=== PATIENT | female | born 1995 | race Caucasian/White ===

== ENCOUNTER 2021-10-14 15:05 | Emergency (ER) | payer MEDICAID, SELFPAY ==
--- NOTE | 2021-10-14 15:26 | ED_ITS ---
HPI - Psych General Chief Complaint: Psychiatric Symptoms Stated Complaint: SI Time Seen by Provider: 10/14/21 16:05 Source: patient, EMS and old records reviewed Mode of arrival: EMS Limitations: no limitations History of Present Illness HPI Narrative: 26-year-old female with a history of mood disorder, dissociation disorder, major depression disorder who lives at a nursing home who presents to the ER via EMS with unsafe behavior. She states today while at her nursing home she asked to use the phone and the staff said no. She felt as though they were mocking her, being disrespectful, and it triggered my unsafe behavior. She reports going to her room and yelling about how she wanted to hurt herself. She banged her head on the wall. She went to the kitchen and got a sharp knife to try to slit her wrists. EMS reports she pulled the knife on staff but she denies this. She has a history of similar presentations in the past. She does not feel safe going back to her nursing home and she feels like she needs to go inpatient. She denies drugs or ETOH use. She reports missing a dose of her meds last night but otherwise has been compliant. MD complaint: suicidal ideation and feels depressed Onset (ago): unknown Duration: intermittent History of same: Yes Relieving factors: none Exacerbating factors: none Context: not taking psychiatric medications Associated psychiatric symptoms: depression, suicidal ideation and racing thoughts Associated symptoms: denies other symptoms If self harm: admits thoughts of self harm, has plan and self-inflicted trauma Related Data Home Medications Medication Instructions Recorded Confirmed clonidine HCl 0.2 mg tablet 1 tab PO DAILY PRN 10/14/21 fluoxetine 10 mg capsule (Prozac) 1 cap PO QAM 10/14/21 lamotrigine 200 mg tablet 1 tab PO BID 10/14/21 (Lamictal) olanzapine 20 mg tablet 0.5 tab PO BID 10/14/21 trazodone 150 mg tablet 1 tab PO BEDTIME PRN 10/14/21 Allergies Allergy/AdvReac Type Severity Reaction Status Date / Time diphenhydramine Allergy Unknown UNKNOWN Unverified 05/22/20 16:32 [From BENADRYL] medroxyprogesterone Allergy Unknown UNKNOWN Unverified 05/22/20 16:32 [From DEPO-PROVERA] Review of Systems Review of Systems: Constitutional: No Fever, No Chills ENT/Mouth: No sore throat, No Rhinorrhea, No Swallowing Difficulty Cardiovascular: No Chest Pain, No SOB Respiratory: No Cough, No Sputum, No Wheezing, No dyspnea Gastrointestinal: No Nausea, No Vomiting, No Diarrhea, No abdominal Pain Genitourinary: No Dysuria, No Urinary Frequency, No Hematuria Musculoskeletal: No joint pain, No Myalgias Skin: No Skin Lesions, No rash Neuro: No Weakness, No Numbness, No Dizziness, No Headache Psych: +Anxiety/Panic, + Depression, +SI, No HI, No AH, No VH Heme/Lymph: No Bruising, No Lymphadenopathy PMFSH Social History Social History Advance Directives: No Advance Directives Information Provided: No Physical Exam Vital Signs: Vital Signs: Last Vital Signs Temp 99.0 F 10/14/21 15:53 Pulse 96 10/14/21 15:53 Resp 16 10/14/21 15:53 BP 107/61 10/14/21 15:53 Pulse Ox 96 10/14/21 15:53 BMI result Body Mass Index 27.9 Appearance: Alert. Oriented X3. No acute distress. Eyes: Pupils equal, round and reactive to light. ENT: Pharynx normal. Neck: Normal inspection. Neck supple. CVS: Normal heart rate and rhythm. Pulses normal. Respiratory: No respiratory distress. Breath sounds normal. Abdomen: Soft and nontender. +BS x4 Skin: Skin warm and dry. Normal skin color. Normal skin turgor. No rashes. Extremities: No lower extremity edema. Neuro/psych: Oriented X 3. No motor deficit. No sensory deficit. CN II-XII intact. Makes eye contact, good insight and judgment, anxious Course Course Course Narrative: 26-year-old female with a history of mood disorder, depression who resides in a nursing home for the last 5 years presents to the ER with self-harm behavior and suicidal thoughts after being told she cannot use a telephone there. She has a history of a similar presentation in the past. She feels like she needs to go inpatient here or to a center in [place] which she has been to before with improvement in her thoughts and behaviors. Will get basic medical workup and have the crisis team evaluate her. Reevaluation(s) Reevaluation #1: Upon changing over patient became extremely tearful and anxious. Oral Zyprexa (home med) ordered and patient agrees to take to help calm her. Reevaluation #2: Physician observation started at 5pm. Patient placed in physician observation because patient is awaiting [facility] evaluation for the possible need of inpatient psych admission. At the time observation was started patient's vital signs were stable. Patient is alert and oriented. Neuro exam is non-focal. CV: RRR and lungs are clear. Will continue to monitor. Discharge Plan Discharge Clinical Impression: Suicidal ideation Patient Disposition: Still a Patient Prescriptions: No Action lamotrigine [Lamictal] 200 mg tablet 1 tab PO BID 0RF clonidine HCl 0.2 mg tablet 1 tab PO DAILY PRN (Reason: Anxiety) 0RF trazodone 150 mg tablet 1 tab PO BEDTIME PRN (Reason: Anxiety) 0RF fluoxetine [Prozac] 10 mg capsule 1 cap PO QAM 0RF olanzapine 20 mg tablet 0.5 tab PO BID 0RF
[2021-10-14 15:36] VITALS: BP 138/86; PULSE 116
[2021-10-14 15:39] VITALS: PULSE 114; O2SAT 97
[2021-10-14 15:53] VITALS: BP 107/61; PULSE 96; RESP 16; TEMP 37.2; O2SAT 96; BMI 27.9
[2021-10-14] MEDS: OLANZapine 5 MG TABLET PO (16:32)
[2021-10-14 17:15] LABS: MANUAL DIFF FLAG NO
[2021-10-14 17:16] LABS: Basophils Percent Auto 0.4 % (0-2); Hematocrit 40.7 % (37.0-47.0); Hemoglobin 13.7 g/dl (12.0-16.0); Imm Gran Abs Auto 0.02 X10*3/uL (0.00-0.03); Imm Gran Pct Auto 0.3 % (0.0-0.4); Lymphocytes Absolute Auto 1.9 X10*3/uL (1.2-4.9); Mean Corpuscular HGB Conc 33.7 g/dl (31.0-35.0); Mean Corpuscular Hemoglobin 29.8 pg (27.0-33.0); Mean Corpuscular Volume 88.5 fL (80.0-98.0); Mean Platelet Volume 8.8 fL (9.4-12.3); Monocytes Absolute Auto 0.4 X10*3/uL (0.1-1.2); Monocytes Percent Auto 5.4 % (2-11); Neutrophils Absolute Auto 5.5 x10*3/uL (2.0-8.3); Neutrophils Percent Auto 69.9 % (45-73); Platelet Count 264 X10*3/uL (160-400); Red Cell Distribution Width 12.2 % (11.0-16.0); White Blood Count 7.9 X10*3/uL (4.8-10.8)
--- NOTE | 2021-10-14 17:24 | PHA.MEDREC ---
Pharmacy Consult ? Medication Reconciliation Pharmacy has completed the medication reconciliation.
[2021-10-14 17:31] LABS: COVID-19 Test Negative (Negative); IDNOW Serial# 9DD0AD1C
[2021-10-14 17:33] LABS: Ethanol < 10 mg/dL
[2021-10-14 17:37] LABS: Alanine Aminotransferase 18 U/L (0-31); Albumin Level 4.7 g/dL (3.5-5.0); Alkaline Phosphatase 68 U/L (39-117); Anion Gap 12 (12-20); Aspartate Amino Transferase 17 U/L (5-31); Bilirubin Direct < 0.2 mg/dL (0.0-0.5); Bilirubin Total 0.4 mg/dL (0.0-1.0); Blood Urea Nitrogen 9 mg/dL (9-16); Calcium 10.2 mg/dL (8.4-10.2); Carbon Dioxide 25 mmol/L (22-29); Chloride 108 mmol/L (96-108); Estimated Glomerular Filt Rate > 60; Glucose Random 112 mg/dL (60-115); Magnesium 2.2 mg/dL (1.6-2.6); Potassium 4.2 mmol/L (3.3-5.1); Sodium 141 mmol/L (135-145); Total Protein 8.1 g/dL (6.5-8.0)
== END 2021-10-14 22:01 | disposition home or self-care (01) ==
PROVIDERS: Physician Assistant; Emergency Provider Emergency Medicine
DX: R45.851 Suicidal ideations (principal); F32.9 Major depressive disorder, single episode, unspecified; F41.9 Anxiety disorder, unspecified; Z20.822 Contact with and (suspected) exposure to COVID-19; Z79.899 Other long term (current) drug therapy
CPT/HCPCS: 80048; 80076; 82077; 83735; 85025; 87635; 99283; 99284

== ENCOUNTER 2021-10-16 11:01 | Emergency (ER) | payer MEDICAID, SELFPAY ==
[2021-10-16 11:14] VITALS: BP 132/94; PULSE 72; O2SAT 99
--- NOTE | 2021-10-16 11:28 | ED_ITS ---
HPI - Psych General Chief Complaint: Psychiatric Symptoms <Lizzeth Hernandez MD - Last Filed: 10/16/21 11:39> Stated Complaint: crisis <Lizzeth Hernandez MD - Last Filed: 10/16/21 11:39> Time Seen by Provider: 10/16/21 11:14 <Lizzeth Hernandez MD - Last Filed: 10/16/21 11:39> Source: patient and EMS <Lizzeth Hernandez MD - Last Filed: 10/16/21 11:39> Mode of arrival: EMS <Lizzeth Hernandez MD - Last Filed: 10/16/21 11:39> Limitations: no limitations <Lizzeth Hernandez MD - Last Filed: 10/16/21 11:39> History of Present Illness HPI Narrative: Patient comes to the emergency room complaining of vague suicidal ideation. Patient states that she does not want to live anymore. Since the patient had an argument with her [facility]mate at the [facility]. Patient grabbed a butter knife and scratched her left wrist and left thumb. Patient states that she wants to contact her [facility] worker and request to have her moved to another [facility]. <Lizzeth Hernandez MD - Last Filed: 10/16/21 11:39> Related Data Home Medications: Home Medications Medication Instructions Recorded Confirmed clonidine HCl 0.2 mg tablet 1 tab PO DAILY PRN 10/14/21 10/16/21 fluoxetine 10 mg capsule (Prozac) 1 cap PO QAM 10/14/21 10/16/21 lamotrigine 200 mg tablet 1 tab PO BID 10/14/21 10/16/21 (Lamictal) olanzapine 20 mg tablet 0.5 tab PO BID 10/14/21 10/16/21 trazodone 150 mg tablet 1 tab PO BEDTIME PRN 10/14/21 10/16/21 <Lizzeth Hernandez MD - Last Filed: 10/16/21 11:39> Allergies/Adverse Reactions: Allergies Allergy/AdvReac Type Severity Reaction Status Date / Time diphenhydramine Allergy Unknown UNKNOWN Unverified 05/22/20 16:32 [From BENADRYL] medroxyprogesterone Allergy Unknown UNKNOWN Unverified 05/22/20 16:32 [From DEPO-PROVERA] <Lizzeth Hernandez MD - Last Filed: 10/16/21 11:39> Review of Systems Review of Systems: Constitutional : No Weight loss, No Fever, No Chills, No Night Sweats, No Fatigue, No Malaise ENT/Mouth : No Hearing loss, No Ear Pain, No Nasal Congestion, No Sinus Pain, No Hoarseness, No sore throat, No Rhinorrhea, No Swallowing Difficulty Eyes: No Eye Pain, No Swelling, No Redness, No Foreign Body, No Discharge, No Vision Changes Cardiovascular : No Chest Pain, No SOB, No Dyspnea on Exertion, No Orthopnea, No Edema, No Palpitations Respiratory : No Cough, No Sputum, No Wheezing, No Smoke Exposure, No Dyspnea Gastrointestinal : No Nausea, No Vomiting, No Diarrhea, No Constipation, No abdominal Pain, No Hematochezia, No Melena Genitourinary : no irregular bleeding, No Dysuria, No Urinary Frequency, No Hematuria, No Urinary Incontinence, No Urgency, No Flank Pain, No Urinary Flow Changes, No Hesitancy Musculoskeletal : No joint pain, No Myalgias, No Joint Swelling Skin : Minor skin abrasions to the left thumb and left wrist Neuro : No Weakness, No Numbness, No Paresthesias, No Loss of Consciousness, No Dizziness, No Headache Psych : Complaining of feeling anxious, depressed, vague suicidal ideation, no homicidal ideation, requesting to be moved to a new [facility] Heme/Lymph: No Bruising, No Bleeding,No Lymphadenopathy Endocrine : No Polyuria, No Polydipsia, No Temperature Intolerance <Lizzeth Hernandez MD - Last Filed: 10/16/21 11:39> [facility] Past Medical History Medical History: Medical History Major depression Mood disorder <Lizzeth Hernandez MD - Last Filed: 10/16/21 11:39> Social History Social History: Social History Advance Directives: No Advance Directives Information Provided: No <Lizzeth Hernandez MD - Last Filed: 10/16/21 11:39> Physical Exam Vital Signs: Vital Signs: Last Vital Signs Temp 97.2 F 10/16/21 12:00 Pulse 89 10/16/21 12:00 Resp 20 10/16/21 12:00 BP 104/67 10/16/21 12:00 Pulse Ox 97 10/16/21 12:00 BMI result Body Mass Index 27.9 <Lizzeth Hernandez MD - Last Filed: 10/16/21 11:39> Vital Signs: Last Vital Signs Temp 97.2 F 10/16/21 12:00 Pulse 89 10/16/21 12:00 Resp 20 10/16/21 12:00 BP 104/67 10/16/21 12:00 Pulse Ox 97 10/16/21 12:00 BMI result Body Mass Index 27.9 <ANNALEE Sprague - Last Filed: 10/16/21 17:25> Const: Other: Appearance: Alert. Oriented X3. Eyes: Pupils equal, round and reactive to light. ENT: Pharynx normal. Neck: Normal inspection. Neck supple. No lymph nodes noted. No crepitus CVS: Normal heart rate and rhythm. Pulses normal. Normal S1 and S2 Respiratory: No respiratory distress. Breath sounds normal. No Wheezing. No rales Abdomen: Soft and nontender. No rigidity. No distention. Skin: Skin warm and dry. Minor 0.5 cm superficial abrasion to the left wrist, 2 superficial scratches to the left thumb, no signs of cellulitis Extremities: No lower extremity edema. Neuro: Oriented X 3. No motor deficit. No sensory deficit. Moving all extermities. No slurred speech. Cranial nerves 2-12 grossly intact Psych: Angry, not very willing to talk, avoids eye contact <Lizzeth Hernandez MD - Last Filed: 10/16/21 11:39> Course Course Course Narrative: Behavioral health network consult pending. Physician observation started at 11:38 <Lizzeth Hernandez MD - Last Filed: 10/16/21 11:39> Reevaluation(s) Reevaluation #1: Behavioral health cleared patient to return to her [facility]. States patient makes suicidal statements when she is upset, but has no history of acting on them, [facility] is comfortable taking her back. Plan is to go back to [facility] and watch movies and relax. <ANNALEE Sprague - Last Filed: 10/16/21 17:25> MDM - Psych Lab Data Labs: Lab Results 10/16/21 Range/Units 11:43 COVID-19 ([facility]) Negative (Negative) COVID-19 Clin Com See Note <Lizzeth Hernandez MD - Last Filed: 10/16/21 11:39> Lab Results 10/16/21 Range/Units 11:43 COVID-19 ([facility]) Negative (Negative) COVID-19 Clin Com See Note <ANNALEE Sprague - Last Filed: 10/16/21 17:25> Discharge Plan Discharge Clinical Impression: Suicidal ideation <Lizzeth Hernandez MD - Last Filed: 10/16/21 11:39> Patient Disposition: Home, Self-Care <Lizzeth Hernandez MD - Last Filed: 10/16/21 11:39> Additional Instructions: Please return to emergency room if you feel like hurting yourself or anyone else, or for any other new or concerning symptoms. <Lizzeth Hernandez MD - Last Filed: 10/16/21 11:39> Prescriptions: No Action lamotrigine [Lamictal] 200 mg tablet 1 tab PO BID 0RF clonidine HCl 0.2 mg tablet 1 tab PO DAILY PRN (Reason: Agitation) 0RF trazodone 150 mg tablet 1 tab PO BEDTIME PRN (Reason: Insomnia) 0RF fluoxetine [Prozac] 10 mg capsule 1 cap PO QAM 0RF olanzapine 20 mg tablet 0.5 tab PO BID 0RF <Lizzeth Hernandez MD - Last Filed: 10/16/21 11:39>
[2021-10-16 11:40] VITALS: BP 100/50; PULSE 76; RESP 16; TEMP 36.1; BMI 27.9
[2021-10-16 12:00] VITALS: BP 104/67; PULSE 89; RESP 20; TEMP 36.2; O2SAT 97
--- NOTE | 2021-10-16 12:19 | PC.NURSE ---
PT REQUESTING TO USE CORDLESS PHONE TO CALL HER [facility]. PHONE PROVIDED TO PATIENT.
[2021-10-16 12:28] LABS: COVID-19 Test Negative (Negative)
--- NOTE | 2021-10-16 14:02 | MHC.CARE ---
Smart Sheet Submitted
--- NOTE | 2021-10-16 15:32 | PC.NURSE ---
Medication list faxed over from [facility] reconciliation completed md engel. Pt at this time awaiting eval. no c/o at this time.
--- NOTE | 2021-10-16 18:54 | PC.NURSE ---
Patient is alert and cooperative verbalized understanding that when she feels like hurting herself she needs to speak to someone. Awaiting shelter to arrive to take patient back to shelter.
== END 2021-10-16 19:04 | disposition home or self-care (01) ==
PROVIDERS: Emergency Provider Emergency Medicine
DX: S60.812A Abrasion of left wrist, initial encounter (principal); X78.1XXA Intentional self-harm by knife, initial encounter; R45.851 Suicidal ideations; F32.9 Major depressive disorder, single episode, unspecified; Z72.89 Other problems related to lifestyle; Z59.2 Discord with neighbors, lodgers and landlord; Y93.89 Activity, other specified; Y92.049 Unspecified place in boarding-house as the place of occurrence of the external cause; Y99.9 Unspecified external cause status; Z20.822 Contact with and (suspected) exposure to COVID-19
CPT/HCPCS: 87635; 99284

== ENCOUNTER 2022-03-30 16:19 | Emergency (ER) | payer MEDICAID, SELFPAY ==
[2022-03-30 16:34] VITALS: BP 130/85; BP 138/96; PULSE 89; PULSE 95; TEMP 37.2; O2SAT 95; O2SAT 96; BMI 26.6
--- NOTE | 2022-03-30 16:34 | ED.PSYCH ---
HPI - Psych General Chief Complaint: Psychiatric Symptoms Stated Complaint: behavior problems Time Seen by Provider: 03/30/22 16:34 Source: patient Mode of arrival: ambulatory Limitations: no limitations History of Present Illness HPI Narrative: Patient history of PTSD, mood disorder was at the [facility] had argument with the staff began hitting head to the wall requesting to leave the [facility] with vague suicidal ideas no plan no hallucination or delusion Related Data Home Medications Medication Instructions Recorded Confirmed clonidine HCl 0.2 mg tablet 1 tab PO DAILY PRN Agitation 10/14/21 03/30/22 fluoxetine 10 mg capsule (Prozac) 1 cap PO QAM 10/14/21 03/30/22 lamotrigine 200 mg tablet 1 tab PO BID 10/14/21 03/30/22 (Lamictal) olanzapine 20 mg tablet 0.5 tab PO BID 10/14/21 03/30/22 trazodone 150 mg tablet 1 tab PO BEDTIME PRN Insomnia 10/14/21 03/30/22 Allergies Allergy/AdvReac Type Severity Reaction Status Date / Time diphenhydramine Allergy Unknown UNKNOWN Unverified 05/22/20 16:32 [From BENADRYL] medroxyprogesterone Allergy Unknown UNKNOWN Unverified 05/22/20 16:32 [From DEPO-PROVERA] Review of Systems Review of Systems: Yes all other systems are reviewed and are negative [facility] Past Medical History Medical History Major depression Mood disorder Social History Social History Patient Tobacco Use Status: Former Tobacco user Use of substances other than those prescribed or required for medical reasons: No Advance Directives: No Advance Directives Information Provided: No Patient : No Physical Exam Vital Signs: Vital Signs: Last Vital Signs Temp 98.1 F 03/31/22 00:37 Pulse 78 03/31/22 00:37 Resp 18 03/31/22 00:37 BP 119/80 03/31/22 00:37 Pulse Ox 95 03/31/22 00:37 O2 Del Method 03/31/22 00:37 BMI result Body Mass Index 26.6 Appearance: Alert. Oriented X3. No acute distress. Eyes: PERRLA, No Nystagmus ENT: Pharynx normal. Oral Mucosa moist Neck: Normal inspection. Neck supple. CVS: Normal heart rate and rhythm. Pulses normal. Respiratory: No respiratory distress. Equal air entry bilateral, no wheezing/rales/rhonchi Abdomen: Soft and nontender. Bowel sounds are present, no mass palpable, no CVA tenderness Skin: Skin warm and dry. Normal skin color. Normal skin turgor. Extremities: No lower extremity edema. No calf tenderness psych: Patient with mood swings crying intermittently saying that she does not know what to do denies any suicidal plan no hallucination delusion Neuro: Oriented X 3. No motor deficit. No sensory deficit.No cerebellar signs , cranial nerves II-XII intact MDM - Psych Lab Data Labs: Lab Results 03/30/22 Range/Units 19:18 COVID-19 ([facility]) Negative (Negative) COVID-19 Clin Com See Note Discharge Plan Discharge Clinical Impression: Acute anxiety, Suicidal ideation, Depression Patient Disposition: Still a Patient Prescriptions: No Action lamotrigine [Lamictal] 200 mg tablet 1 tab PO BID clonidine HCl 0.2 mg tablet 1 tab PO DAILY PRN (Reason: Agitation) trazodone 150 mg tablet 1 tab PO BEDTIME PRN (Reason: Insomnia) fluoxetine [Prozac] 10 mg capsule 1 cap PO QAM olanzapine 20 mg tablet 0.5 tab PO BID
[2022-03-30] MEDS: LORazepam 1 MG TABLET 2 MG PO (16:59)
[2022-03-30 19:39] LABS: COVID-19 Test Negative (Negative)
--- NOTE | 2022-03-30 20:31 | MHC.CARE ---
Esdras sent to [facility]
[2022-03-30] MEDS: OLANZapine 10 MG TABLET PO (21:50)
[2022-03-30] MEDS: lamoTRIgine 100 MG TABLET 200 MG PO (21:50)
[2022-03-31 00:37] VITALS: BP 119/80; PULSE 78; RESP 18; TEMP 36.7; O2SAT 95
--- NOTE | 2022-03-31 01:23 | PC.NURSE ---
I assumed nursing care of Dhiraj at 1900. Dhiraj is on a 1:1 with [facility] staff observing her, and she also has staff from her gor home at the bedside continuously. Dhiraj is here to be evaluated by crisis team due to behavioral concerns at her half-way. Dhiraj is awake, alert and oriented x 3. She is at times tearful and sobbnig, other times she is cheerful and laughing,other times she is calm and cooperative. She makes eye contact with Rn and once i begin a conversation with her she makes it very difficult for me to leave the conversation despite me repeatedly stating I need to step out of the room. She denies suicidal ideations, however she endorses the desire to cut herself. She shows me multiple very small, very superficial abrasions to her left upper arm that she states she induced with her fingernails prior to my meeting her. There is no active bleeding. In addition, she denies the desire commit homicide but admits to the desire to harm other residents, as well as staff, at her half-way. I have given Dhiraj some hand held stress relief devices from the [facility] in order to help distract her from the desire to harm herself, at her request. She has been taking PO fluids without difficulty, as well as ice cream. [facility] staff are here at this time to evaluate the pt. We will continue to monitor Dhiraj.
== END 2022-03-31 02:14 | disposition home or self-care (01) ==
PROVIDERS: Internal Medicine; Emergency Provider Emergency Medicine Emergency Medical Services
DX: F41.9 Anxiety disorder, unspecified (principal); F32.A Depression, unspecified; R45.851 Suicidal ideations; Z20.822 Contact with and (suspected) exposure to COVID-19; F43.10 Post-traumatic stress disorder, unspecified; Z87.891 Personal history of nicotine dependence
CPT/HCPCS: 87635; 99284; 99285

== ENCOUNTER 2025-01-30 16:48 | Emergency (ER) | payer MEDICARE, MEDICAID, SELFPAY ==
[2025-01-30 17:03] VITALS: BP 128/78; BP 142/90; PULSE 75; RESP 20; TEMP 36.6; O2SAT 100; O2SAT 98; BMI 25.5
[2025-01-30 18:15] LABS: MANUAL DIFF FLAG NO
[2025-01-30 18:18] LABS: Basophils Percent Auto 0.3 % (0-2); Hematocrit 40.4 % (37.0-47.0); Hemoglobin 13.8 g/dl (12.0-16.0); Imm Gran Abs Auto 0.04 X10*3/uL (0.00-0.03); Imm Gran Pct Auto 0.5 % (0.0-0.4); Lymphocytes Absolute Auto 2.9 X10*3/uL (1.2-4.9); Lymphocytes Percent Auto 37.3 % (20-40); Mean Corpuscular HGB Conc 34.2 g/dl (31.0-35.0); Mean Corpuscular Hemoglobin 30.1 pg (27.0-33.0); Mean Corpuscular Volume 88.2 fL (80.0-98.0); Mean Platelet Volume 8.4 fL (9.4-12.3); Monocytes Absolute Auto 0.4 X10*3/uL (0.1-1.2); Monocytes Percent Auto 5.7 % (2-11); Neutrophils Absolute Auto 4.3 x10*3/uL (2.0-8.3); Neutrophils Percent Auto 56.2 % (45-73); Platelet Count 250 X10*3/uL (160-400); Red Blood Count 4.58 X10*6/uL (4.20-5.50); Red Cell Distribution Width 11.9 % (11.0-16.0); White Blood Count 7.7 X10*3/uL (4.8-10.8)
[2025-01-30 18:36] LABS: Acetaminophen LAB < 3 mcg/mL (<30); Alanine Aminotransferase 10 U/L (0-31); Albumin Level 4.6 g/dL (3.5-5.0); Alkaline Phosphatase 62 U/L (39-117); Anion Gap 13 (12-20); Aspartate Amino Transferase 12 U/L (5-31); Bilirubin Total 0.2 mg/dL (0.0-1.0); Blood Urea Nitrogen 12 mg/dL (9-16); Calcium 9.8 mg/dL (8.4-10.2); Carbon Dioxide 26 mmol/L (22-29); Chloride 101 mmol/L (96-108); Creatinine Clr Calc Pharmacy 117.6; Estimated Glomerular Filt Rate > 60; Ethanol < 10 mg/dL; Glucose Random 112 mg/dL (60-115); Potassium 3.6 mmol/L (3.3-5.1); Salicylate < 5.0 mg/dL (15-30); Sodium 136 mmol/L (135-145)
--- NOTE | 2025-01-30 18:40 | ED_ITS ---
HPI - Psych General Chief Complaint: Psychiatric Symptoms Stated Complaint: crisis eval, sect 12, SI Time Seen by Provider: 01/30/25 17:57 History of Present Illness ED Provider: Pb Rodriguez MD HPI Narrative: Triage note: Via EMS from half-way. Vague suicidal ideation reported. Small open wound left breast section 12 by Will RIGGS . Upon my evaluation the patient is cooperative. She tells me ?I need a break from my roommates ?. She denies suicidal ideation or homicidal ideation. She says that staff members and her roommates were frustrating bothering her. Related Data Home Medications ?Medication ?Instructions ?Recorded ?Confirmed clonidine HCl 0.2 mg tablet 1 tab PO BEDTIME 10/14/21 01/30/25 fluoxetine 10 mg capsule (Prozac) 2 cap PO DAILY 10/14/21 01/30/25 lamotrigine 200 mg tablet 1 tab PO BID 10/14/21 01/30/25 (Lamictal) acetylcysteine 600 mg capsule (NAC) 600 mg PO BID 01/30/25 01/30/25 cholecalciferol (vitamin D3) 50 50 mcg PO DAILY 01/30/25 01/30/25 mcg (2,000 unit) tablet (Vitamin D3) clonidine HCl 0.1 mg tablet 0.1 mg PO DAILY PRN Anxiety 01/30/25 01/30/25 levonorgestrel-ethinyl estradiol 1 tab PO DAILY 01/30/25 01/30/25 0.1 mg-20 mcg tablet (Vienva) olanzapine 10 mg tablet 10 mg PO BID 01/30/25 01/30/25 trazodone 50 mg tablet 50 mg PO BEDTIME 01/30/25 01/30/25 Allergies Allergy/AdvReac Type Severity Reaction Status Date / Time diphenhydramine Allergy Unknown UNKNOWN Verified 01/30/25 17:08 [From BENADRYL] medroxyprogesterone Allergy Unknown UNKNOWN Verified 01/30/25 17:08 [From DEPO-PROVERA] [facility] Past Medical History Medical History Major depression Mood disorder Social History Social History Alcohol intake: never Patient Tobacco Use Status: Former Tobacco user Smoked in Last 30 Days: No Advance Directives: No Advance Directives Information Provided: No Physical Exam 2 Vital Signs: Vital Signs: Last Vital Signs Temp 98.2 F 01/31/25 17:31 Pulse 88 01/31/25 17:31 Resp 18 01/31/25 17:31 BP 109/74 01/31/25 17:31 Pulse Ox 100 01/31/25 17:31 O2 Del Method Room Air 01/31/25 08:29 BMI result Body Mass Index 25.5 Const: Other: EXAM: Gen: Alert, awake, well appearing, well hydrated. Head: Atraumatic Eyes: Anicteric, Normal conjunctiva. ENT: Moist mucosa, no pallor. ? Neck: Supple. Skin: Very superficial scratches to the left dorsal forearm Respiratory: Breathing comfortably, No distress.Clear to auscultation bilaterally, symmetric chest expansion, No wheeze, rales, ronchi. Cardiovascular: Regular rate and rhythm. No murmurs or rub. Well perfused periphery, warm extremities. No edema. ? Abdominal: No FOCAL TENDERNESS. Soft, no objective distension. No palpable masses or obvious organomegaly. ?No guarding, no rebound tenderness or other peritoneal findings. : No flank tenderness. Neuro: Alert. Gross movement of all extremities intact. ? Psych: Calm. Cooperative. MSK: No grossly visible deformity. Vital signs: See flowsheet Medications Administered Discontinued Medications Generic Name Dose Route Start Last Admin Trade Name Freq PRN Reason Stop Dose Admin Clonidine HCl 0.1 mg 01/30/25 19:24 01/31/25 09:39 Clonidine Hcl 0.1 Mg Tablet PO 0.1 mg DAILY PRN Administration Anxiety Protocol Clonidine HCl 0.2 mg 01/30/25 21:00 01/30/25 21:10 Clonidine Hcl 0.2 Mg Tablet PO 0.2 mg BEDTIME KACEY Administration Protocol Fluoxetine HCl 20 mg 01/30/25 19:41 01/31/25 08:07 Fluoxetine Hcl 20 Mg Capsule PO 20 mg DAILY KACEY Administration Lamotrigine 200 mg 01/30/25 21:00 01/31/25 08:07 Lamotrigine 100 Mg Tablet PO 200 mg BID KACEY Administration Olanzapine 10 mg 01/30/25 21:00 01/31/25 08:07 Olanzapine 10 Mg Tablet PO 10 mg BID KACEY Administration Trazodone HCl 50 mg 01/30/25 21:00 01/30/25 21:10 Trazodone Hcl 50 Mg Tablet PO 50 mg BEDTIME KACEY Administration Vitamin D 50 mcg 01/30/25 19:30 01/31/25 08:07 Cholecalciferol (Vitamin D3) 25 Mcg Tablet PO 50 mcg DAILY KACEY Administration Medical Decision Making Medical Decision Making [facility] Narrative: 29-year-old female arrives from half-way on section 12. To me she denies SI or HI but reports ?needing a break?. No acute medical emergency identified. Not grossly psychotic. No obvious toxidrome or encephalopathy. Medically cleared care team evaluation pending Urinalysis with leukocytes but no urinary symptoms to suggest UTI Patient is seen by care team. [place] patient's symptom anxiety related. Not suicidal homicidal. Patient going to respite. Differential Diagnosis Differential Diagnoses: The differential diagnosis associated with the presentation includes Anxiety depression Admission/Observation Consideration of admission/observation: Escalation of care including admission/observation considered Consult Healthcare Provider Management of the patient was discussed with: Behavioral Health Provider Lab Data [facility] Lab Attestation statement: I reviewed the patient's lab results. 01/30/25 18:08 01/30/25 18:08 Labs: Lab Results 01/30/25 01/30/25 Range/Units 18:08 18:46 WBC 7.7 (4.8-10.8) X10*3/uL RBC 4.58 (4.20-5.50) X10*6/uL Hgb 13.8 (12.0-16.0) g/dl Hct 40.4 (37.0-47.0) % MCV 88.2 (80.0-98.0) fL MCH 30.1 (27.0-33.0) pg MCHC 34.2 (31.0-35.0) g/dl RDW 11.9 (11.0-16.0) % Plt Count 250 (160-400) X10*3/uL MPV 8.4 L (9.4-12.3) fL Immature Gran % (Auto) 0.5 H (0.0-0.4) % Neut % (Auto) 56.2 (45-73) % Lymph % (Auto) 37.3 (20-40) % [place] % (Auto) 5.7 (2-11) % Eos % (Auto) 0.0 (0-4) % Baso % (Auto) 0.3 (0-2) % Lymph # (Auto) 2.9 (1.2-4.9) X10*3/uL [place] # (Auto) 0.4 (0.1-1.2) X10*3/uL Eos # (Auto) 0.0 (0.0-0.4) X10*3/uL Baso # (Auto) 0.0 (0.0-0.2) X10*3/uL Abs Immat Gran (auto) 0.04 H (0.00-0.03) X10*3/uL Absolute Neuts (auto) 4.3 (2.0-8.3) x10*3/uL Absolute Nucleated RBC 0.000 (0.0-0.012) X10*3/uL Nucleated RBC % (auto) 0.0 (0.0-0.2) /100WBC Sodium 136 (135-145) mmol/L Potassium 3.6 (3.3-5.1) mmol/L Chloride 101 (96-108) mmol/L Carbon Dioxide 26 (22-29) mmol/L Anion Gap 13 (12-20) BUN 12 (9-16) mg/dL Creatinine 0.77 (0.5-1.4) mg/dL Estim Creat Clear Calc 117.6 Estimated GFR > 60 Random Glucose 112 (60-115) mg/dL Calcium 9.8 (8.4-10.2) mg/dL Total Bilirubin 0.2 (0.0-1.0) mg/dL AST 12 (5-31) U/L ALT 10 (0-31) U/L Alkaline Phosphatase 62 (39-117) U/L Total Protein 8.0 (6.5-8.0) g/dL Albumin 4.6 (3.5-5.0) g/dL Urine Color Yellow Urine Appearance Clear Urine pH 6.0 (5.0-9.0) Ur Specific [place] 1.015 (1.005-1.025) Urine Protein Negative (Neg-Trace) mg/dL Urine Glucose (UA) Negative (Negative) mg/dL Urine Ketones Negative (Negative) mg/dL Urine Blood Trace H (Negative) Urine Nitrite Negative (Negative) Ur Leukocyte Esterase Negative (Negative) Urine RBC 0-2 (0-2) /HPF Urine WBC 6-10 H (0-5) /HPF Ur Squamous Epith Cells 3-5 (0-2) /HPF Urine Bacteria 1+ (None Seen) Hyaline Casts 0-2 (0-2) /LPF Urine Test NEGATIVE (NEGATIVE) Salicylates < 5.0 L (15-30) mg/dL Urine Opiates Screen Not Detected (Not Detect) Ur Buprenorphine Scrn Not Detected (Not Detect) ng/mL Ur Oxycodone Screen Not Detected (Not Detect) ng/mL Urine Methadone Screen Not Detected (Not Detect) ng/mL Urine Fentanyl Screen Not Detected (Not Detect) Acetaminophen < 3 (<30) mcg/mL Ur Barbiturates Screen Not Detected (Not Detect) Ur Phencyclidine Scrn Not Detected (Not Detect) Ur Amphetamines Screen Not Detected (Not Detect) U Benzodiazepines Scrn Not Detected (Not Detect) Urine Cocaine Screen Not Detected (Not Detect) U Marijuana (THC) Screen Not Detected (Not Detect) Ethyl Alcohol < 10 mg/dL Social Determinants Patient?s care significantly limited by Social Determinants of Health including: Problems related to primary support group Discharge Plan Discharge Clinical Impression: Acute anxiety Patient Disposition: Home, Self-Care Instructions: Anxiety (ED) Prescriptions: No Action lamotrigine [Lamictal] 200 mg tablet 1 tab PO BID clonidine HCl 0.2 mg tablet 1 tab PO BEDTIME fluoxetine [Prozac] 10 mg capsule 2 cap PO DAILY trazodone 50 mg Tablet 50 mg PO BEDTIME olanzapine 10 mg Tablet 10 mg PO BID cholecalciferol (vitamin D3) [Vitamin D3] 50 mcg (2,000 unit) Tablet 50 mcg PO DAILY clonidine HCl 0.1 mg Tablet 0.1 mg PO DAILY PRN (Reason: Anxiety) levonorgestrel-ethinyl estrad [Vienva] 0.1-20 mg-mcg Tablet 1 tab PO DAILY acetylcysteine [NAC] 600 mg Capsule 600 mg PO BID Referrals: Physician,Unknown J [Primary Care Provider] - (Please follow-up as per care team) Interventions: [place]-Suicide Risk Severity Scale Last Done: 01/30/25 17:09 ED Discharge Assessment Last Done: 01/31/25 17:31 Discharge Date/Time: 01/31/25 17:32 Print Language: Spanish
[2025-01-30 18:54] LABS: Appearance Urine Clear; Color Urine Yellow; Glucose Urine UA Negative (Negative); Leukocyte Esterase Urine Negative (Negative); Nitrite Urine Negative (Negative); Specific Gravity - Urine 1.015 (1.005-1.025); UMIC TRIGGER UACC YES; Urine Blood Trace (Negative); Urine Ketones Negative (Negative); Urine Protein Negative (Neg-Trace)
[2025-01-30 18:55] LABS: UPreg QC Valid YES; Urine Pregnancy NEGATIVE (NEGATIVE)
[2025-01-30 19:02] LABS: Amphetamine Screen Urine Not Detected (Not Detect); Barbiturates, Urine Not Detected (Not Detect); Benzodiazepines Screen Urine Not Detected (Not Detect); Buprenorphine Scr Not Detected (Not Detect); Cannabinoid Screen Urine Not Detected (Not Detect); Cocaine Screen Urine Not Detected (Not Detect); Fentanyl, urine Not Detected (Not Detect); Methadone Screen, Urine Not Detected (Not Detect); Opiate Screen Urine Not Detected (Not Detect); Oxycodone Screen Urine Not Detected (Not Detect); Phencyclidine Screen Urine Not Detected (Not Detect)
[2025-01-30 19:23] LABS: Bacteria Urine 1+ (None Seen); Hyaline Casts Urine 0-2 /LPF (0-2); RBC Urine 0-2 /HPF (0-2); UACC Culture Trigger YES
--- NOTE | 2025-01-30 19:40 | PHA.MEDREC ---
Pharmacy Consult ? Medication Reconciliation Pharmacy has completed the medication reconciliation. Reviewed med rec done by nursing.
[2025-01-30 21:10] VITALS: BP 127/75
[2025-01-30] MEDS: OLANZapine 10 MG TABLET PO (21:10)
[2025-01-30] MEDS: cloNIDine HCL 0.2 MG TABLET PO (21:10)
[2025-01-30] MEDS: traZODone HCL 50 MG TABLET PO (21:10)
[2025-01-30] MEDS: lamoTRIgine 100 MG TABLET 200 MG PO (21:10)
[2025-01-30 21:14] VITALS: BP 127/75; PULSE 73; RESP 16; TEMP 36.6; O2SAT 99
[2025-01-31 06:22] VITALS: BP 75/58; PULSE 71; RESP 17; TEMP 36.6; O2SAT 97
--- NOTE | 2025-01-31 06:22 | MHC.EDTECH ---
Late entry Patient woke and agreed to vitals but took the cuff off and asked this staff to let her go back to sleep. BP reported to RN.
--- NOTE | 2025-01-31 06:23 | PC.NURSE ---
Patient slept through the night, no distress observed/reported, meds and meals compliant, deposition per care team is Respite bed search, 15 minutes for safety check, no behavior and safety check, will continue to monitor
--- NOTE | 2025-01-31 08:01 | PC.NURSE ---
Assumed care of patient at 0645, patient appears to be in no apparent distress this am, talking with fpc on the phone at this time. Continue plan of care for [facility] bedsearch
[2025-01-31] MEDS: Cholecalciferol (Vitamin D3) 25 MCG TABLET 50 MCG PO (08:07)
[2025-01-31] MEDS: FLUoxetine HCl 20 MG CAPSULE PO (08:07)
[2025-01-31] MEDS: OLANZapine 10 MG TABLET PO (08:07)
[2025-01-31] MEDS: lamoTRIgine 100 MG TABLET 200 MG PO (08:07)
--- NOTE | 2025-01-31 08:08 | MHC.CARE ---
[facility] reports patient has been tentatively accepted for today 01/31/25 however, [id number] has to be done. Staff will call for nurse to nurse ROZ. [facility] called [facility] and they report they can bring patient?s meds to [facility] when ETA is provided.
[2025-01-31 08:29] VITALS: BP 109/74; PULSE 88; RESP 18; TEMP 36.8; O2SAT 100
[2025-01-31 09:39] VITALS: BP 109/74
[2025-01-31] MEDS: cloNIDine HCL 0.1 MG TABLET PO (09:39)
[2025-01-31 17:31] VITALS: BP 109/74; PULSE 88; RESP 18; TEMP 36.8; O2SAT 100
== END 2025-01-31 17:32 | disposition home or self-care (01) ==
PROVIDERS: Emergency Provider Emergency Medicine
DX: F41.9 Anxiety disorder, unspecified (principal); R45.851 Suicidal ideations; F81.9 Developmental disorder of scholastic skills, unspecified; Z79.899 Other long term (current) drug therapy
CPT/HCPCS: 36415; 80053; 80143; 80179; 80307; 81001; 81003; 81025; 85025; 87086; 99285; S9485

== ENCOUNTER 2025-02-16 14:36 | Inpatient (IN) | payer MEDICARE, MEDICAID, SELFPAY ==
[2025-02-16 14:47] VITALS: BP 132/74; PULSE 90; O2SAT 98
[2025-02-16 14:58] VITALS: BP 124/74; PULSE 80; RESP 18; TEMP 36.2; O2SAT 99; BMI 25.3
--- NOTE | 2025-02-16 15:04 | ED_ITS ---
HPI - General Adult General Chief complaint: Behavioral Concerns Stated complaint: CRISIS/BEHAVIORAL EPISODE FROM [facility] PER EMS Time Seen by Provider: 02/16/25 14:57 Source: patient History of Present Illness HPI narrative: 29 year old female presents via EMS from a [place] [facility] stating that she ?needs a break from her roommates?. Patient has a history of anxiety, adjustment and conduct disorder, depression and suicidal ideation. When ?I am at the home I just want to go in the kitchen and take a knife and cut my wrist?. Patient states she feels anxious and overwhelmed while at current living situation and is requesting a temporary program. She currently has no physical complaints. She denies any homicidal ideation. No auditory or visual hallucinations. She reports compliance with her medications. She is otherwise feeling well. Related Data Home Medications ?Medication ?Instructions ?Recorded ?Confirmed clonidine HCl 0.2 mg tablet 1 tab PO BEDTIME 10/14/21 02/16/25 lamotrigine 200 mg tablet 1 tab PO BID 10/14/21 02/16/25 (Lamictal) acetylcysteine 600 mg capsule (NAC) 600 mg PO BID 01/30/25 02/16/25 cholecalciferol (vitamin D3) 50 50 mcg PO DAILY 01/30/25 02/16/25 mcg (2,000 unit) tablet (Vitamin D3) clonidine HCl 0.1 mg tablet 0.1 mg PO DAILY PRN Anxiety 01/30/25 02/16/25 levonorgestrel-ethinyl estradiol 1 tab PO DAILY 01/30/25 02/16/25 0.1 mg-20 mcg tablet (Vienva) trazodone 50 mg tablet 50 mg PO BEDTIME 01/30/25 02/16/25 fluoxetine 20 mg capsule 20 mg PO DAILY 02/17/25 02/17/25 olanzapine 20 mg tablet 10 mg PO BID 02/17/25 02/17/25 Allergies Allergy/AdvReac Type Severity Reaction Status Date / Time diphenhydramine Allergy Unknown UNKNOWN Verified 02/16/25 15:00 [From BENADRYL] medroxyprogesterone Allergy Unknown UNKNOWN Verified 01/30/25 17:08 [From DEPO-PROVERA] Review of Systems 2 Constitutional: Constitutional: Denies chills and Denies fever(s) Cardiovascular: Cardiovascular: Denies chest pain, Denies dyspnea, Denies dyspnea on exertion and Denies orthopnea Respiratory: Respiratory: Denies cough, Denies dyspnea and Denies dyspnea on exertion Gastrointestinal: Gastrointestinal: Denies abdominal pain, Denies melena, Denies hematochezia, Denies diarrhea, Denies nausea and Denies vomiting Genitourinary: Genitourinary: Denies dysuria and Denies urinary urgency Musculoskeletal: Musculoskeletal: Denies back pain, Denies muscle weakness and Denies numbness Integumentary/Breasts: Skin/Breast: Denies rash Neurologic: Denies focal weakness and Denies numbness Psychiatric: Psychiatric: Reports anxiety, Reports depression and Reports irritability PMFSH Past Medical History Medical History Major depression Mood disorder Social History Social History Alcohol intake: never Patient Tobacco Use Status: Former Tobacco user Smoked in Last 30 Days: No Use of substances other than those prescribed or required for medical reasons: No Advance Directives: No Advance Directives Information Provided: No Nutrition Risks: No Nutritional Risk Physical Exam ED Vital Signs: Vital Signs - 24 hr 02/17/25 17:19 02/17/25 20:11 02/18/25 06:26 Temperature 97.9 F 99.4 F Pulse Rate 82 75 Respiratory Rate 16 16 16 Blood Pressure 100/67 98/61 Pulse Oximetry 98 98 Oxygen Delivery Method Room Air Room Air BMI result Body Mass Index 25.3 Const General: cooperative and no acute distress Resp Auscultation: clear to auscultation bilaterally Cardio Rate: regular rate Rhythm: regular rhythm Skin General skin exam: no rashes or lesions noted Psych Attitude: cooperative Course Course Course Narrative: Time: 17:37 Date: 02/16/25 Provider: ANNALEE Sanches Patient in physician observation for psychiatric evaluation.? No acute events reported. No current complaints. VS stable.? Patient is in bed search status/pending CARE team evaluation. Will continue to monitor. Reevaluation(s) Reevaluation #1: 02/17/2025, DR. Perry's progress note: Patient in physician observation for psychiatric evaluation.? No acute events reported overnight. No current complaints. VS stable.? Patient is in bed search status , under section 12, Will continue to monitor. Time: 09:06 Reevaluation #2: Time: 06:28 Date: 02/18/25 Provider: Naseem Betancur MD Patient in physician observation for psychiatric evaluation.? Patient has been in the emergency department for around 39 hours. Patient was re-evaluated yesterday by the care team who felt the patient still meets IPLOC criteria. No acute events reported overnight. No current complaints. VS stable.? Patient is in bed search status. Will continue to monitor. Reevaluation #3: Time: 14:03 Date: 02/18/25 Provider: Naseem Betancur MD Physician observation ended at 14:03 hours. Patient to be admitted as inpatient to psychiatry. Medications Administered Generic Name Dose Route Start Last Admin Trade Name Freq PRN Reason Stop Dose Admin Clonidine HCl 0.1 mg 02/16/25 20:01 02/17/25 02:07 Clonidine Hcl 0.1 Mg Tablet PO 0.1 mg DAILY PRN Administration Anxiety Protocol Clonidine HCl 0.2 mg 02/16/25 21:00 02/17/25 20:04 Clonidine Hcl 0.2 Mg Tablet PO 0.2 mg BEDTIME KACEY Administration Protocol Fluoxetine HCl 20 mg 02/17/25 09:00 02/18/25 08:35 Fluoxetine Hcl 20 Mg Capsule PO 20 mg DAILY KACEY Administration Lamotrigine 200 mg 02/16/25 21:00 02/18/25 08:35 Lamotrigine 100 Mg Tablet PO 200 mg BID KACEY Administration Olanzapine 10 mg 02/16/25 21:00 02/18/25 08:35 Olanzapine 10 Mg Tablet PO 10 mg BID KACEY Administration Trazodone HCl 50 mg 02/16/25 21:00 02/17/25 20:04 Trazodone Hcl 50 Mg Tablet PO 50 mg BEDTIME KACEY Administration Vitamin D 50 mcg 02/17/25 09:00 02/18/25 08:35 Cholecalciferol (Vitamin D3) 25 Mcg Tablet PO 50 mcg DAILY KACEY Administration Medical Decision Making Medical Decision Making MDM Narrative: 29-year-old female with a history of mood disorder, anxiety, depression, presents with suicide ideation and requesting temporarily program patient will be seen by the behavioral health team for further evaluation and management. No acute medical process at this time. Labs pending. Differential Diagnosis Differential Diagnoses: The differential diagnosis associated with the presentation includes Psychosis Depression Bipolar PTSD Mood disorder Admission/Observation Consideration of admission/observation: Escalation of care including admission/observation considered Lab Data 02/16/25 15:42 02/16/25 15:42 Labs: Lab Results 02/16/25 02/16/25 Range/Units 15:42 19:41 WBC 6.0 (4.8-10.8) X10*3/uL RBC 4.28 (4.20-5.50) X10*6/uL Hgb 13.2 (12.0-16.0) g/dl Hct 37.2 (37.0-47.0) % MCV 86.9 (80.0-98.0) fL MCH 30.8 (27.0-33.0) pg MCHC 35.5 H (31.0-35.0) g/dl RDW 12.0 (11.0-16.0) % Plt Count 242 (160-400) X10*3/uL MPV 8.3 L (9.4-12.3) fL Immature Gran % (Auto) 0.2 (0.0-0.4) % Neut % (Auto) 61.4 (45-73) % Lymph % (Auto) 31.4 (20-40) % [place] % (Auto) 6.7 (2-11) % Eos % (Auto) 0.0 (0-4) % Baso % (Auto) 0.3 (0-2) % Lymph # (Auto) 1.9 (1.2-4.9) X10*3/uL [place] # (Auto) 0.4 (0.1-1.2) X10*3/uL Eos # (Auto) 0.0 (0.0-0.4) X10*3/uL Baso # (Auto) 0.0 (0.0-0.2) X10*3/uL Abs Immat Gran (auto) 0.01 (0.00-0.03) X10*3/uL Absolute Neuts (auto) 3.7 (2.0-8.3) x10*3/uL Absolute Nucleated RBC 0.000 (0.0-0.012) X10*3/uL Nucleated RBC % (auto) 0.0 (0.0-0.2) /100WBC Sodium 142 (135-145) mmol/L Potassium 3.8 (3.3-5.1) mmol/L Chloride 107 (96-108) mmol/L Carbon Dioxide 27 (22-29) mmol/L Anion Gap 12 (12-20) BUN 16 (9-16) mg/dL Creatinine 0.83 (0.5-1.4) mg/dL Estim Creat Clear Calc 109.1 Estimated GFR > 60 Random Glucose 95 (60-115) mg/dL Calcium 9.5 (8.4-10.2) mg/dL Total Bilirubin 0.2 (0.0-1.0) mg/dL AST 13 (5-31) U/L ALT 18 (0-31) U/L Alkaline Phosphatase 52 (39-117) U/L Total Protein 7.5 (6.5-8.0) g/dL Albumin 4.3 (3.5-5.0) g/dL Lipase 23 (8-78) U/L Beta HCG, Quant < 2 mIU/mL Urine Color Yellow Urine Appearance Turbid Urine pH 7.0 (5.0-9.0) Ur Specific [place] 1.010 (1.005-1.025) Urine Protein Trace (Neg-Trace) mg/dL Urine Glucose (UA) Negative (Negative) mg/dL Urine Ketones Negative (Negative) mg/dL Urine Blood Negative (Negative) Urine Nitrite Negative (Negative) Ur Leukocyte Esterase Trace H (Negative) Urine RBC 11-20 H (0-2) /HPF Urine WBC >50 H (0-5) /HPF Ur Squamous Epith Cells >20 (0-2) /HPF Urine Bacteria 4+ (None Seen) Hyaline Casts >20 (0-2) /LPF Urine Opiates Screen Not Detected (Not Detect) Ur Buprenorphine Scrn Not Detected (Not Detect) ng/mL Ur Oxycodone Screen Not Detected (Not Detect) ng/mL Urine Methadone Screen Not Detected (Not Detect) ng/mL Urine Fentanyl Screen Not Detected (Not Detect) Ur Barbiturates Screen Not Detected (Not Detect) Ur Phencyclidine Scrn Not Detected (Not Detect) Ur Amphetamines Screen Not Detected (Not Detect) U Benzodiazepines Scrn Not Detected (Not Detect) Urine Cocaine Screen Not Detected (Not Detect) U Marijuana (THC) Screen Not Detected (Not Detect) Discharge Plan Discharge Clinical Impression: Suicidal ideation Patient Disposition: Admitted As Inpatient Interventions: Admission Worksheet (ED) Last Done: 02/18/25 13:16
[2025-02-16 15:47] LABS: MANUAL DIFF FLAG NO
[2025-02-16 15:50] LABS: Basophils Percent Auto 0.3 % (0-2); Hematocrit 37.2 % (37.0-47.0); Hemoglobin 13.2 g/dl (12.0-16.0); Imm Gran Abs Auto 0.01 X10*3/uL (0.00-0.03); Imm Gran Pct Auto 0.2 % (0.0-0.4); Lymphocytes Absolute Auto 1.9 X10*3/uL (1.2-4.9); Lymphocytes Percent Auto 31.4 % (20-40); Mean Corpuscular HGB Conc 35.5 g/dl (31.0-35.0); Mean Corpuscular Hemoglobin 30.8 pg (27.0-33.0); Mean Corpuscular Volume 86.9 fL (80.0-98.0); Mean Platelet Volume 8.3 fL (9.4-12.3); Monocytes Absolute Auto 0.4 X10*3/uL (0.1-1.2); Monocytes Percent Auto 6.7 % (2-11); Neutrophils Absolute Auto 3.7 x10*3/uL (2.0-8.3); Neutrophils Percent Auto 61.4 % (45-73); Platelet Count 242 X10*3/uL (160-400); Red Blood Count 4.28 X10*6/uL (4.20-5.50)
[2025-02-16 16:19] LABS: Alanine Aminotransferase 18 U/L (0-31); Albumin Level 4.3 g/dL (3.5-5.0); Alkaline Phosphatase 52 U/L (39-117); Anion Gap 12 (12-20); Aspartate Amino Transferase 13 U/L (5-31); Bilirubin Total 0.2 mg/dL (0.0-1.0); Blood Urea Nitrogen 16 mg/dL (9-16); Calcium 9.5 mg/dL (8.4-10.2); Carbon Dioxide 27 mmol/L (22-29); Chloride 107 mmol/L (96-108); Creatinine Clr Calc Pharmacy 109.1; Estimated Glomerular Filt Rate > 60; Glucose Random 95 mg/dL (60-115); Lipase 23 U/L (8-78); Potassium 3.8 mmol/L (3.3-5.1); Sodium 142 mmol/L (135-145); Total Protein 7.5 g/dL (6.5-8.0)
[2025-02-16 16:20] LABS: HCG Quantitative < 2 mIU/mL
[2025-02-16 20:05] LABS: Appearance Urine Turbid; Color Urine Yellow; Glucose Urine UA Negative (Negative); Leukocyte Esterase Urine Trace (Negative); Nitrite Urine Negative (Negative); UMIC TRIGGER UA YES; Urine Blood Negative (Negative); Urine Ketones Negative (Negative); Urine Protein Trace mg/dL (Neg-Trace)
[2025-02-16 20:14] VITALS: BP 109/66; PULSE 70; RESP 18; TEMP 37.1; O2SAT 100
[2025-02-16] MEDS: cloNIDine HCL 0.2 MG TABLET PO (20:14)
[2025-02-16] MEDS: lamoTRIgine 100 MG TABLET 200 MG PO (20:14)
[2025-02-16] MEDS: traZODone HCL 50 MG TABLET PO (20:14)
[2025-02-16] MEDS: OLANZapine 10 MG TABLET PO (20:14)
[2025-02-16 20:17] LABS: Bacteria Urine 4+ (None Seen); Hyaline Casts Urine >20 /LPF (0-2); Squamous Epithelial Cell Urine >20 /HPF (0-2); WBC Urine >50 /HPF (0-5)
[2025-02-16 20:32] LABS: Amphetamine Screen Urine Not Detected (Not Detect); Barbiturates, Urine Not Detected (Not Detect); Benzodiazepines Screen Urine Not Detected (Not Detect); Buprenorphine Scr Not Detected (Not Detect); Cannabinoid Screen Urine Not Detected (Not Detect); Cocaine Screen Urine Not Detected (Not Detect); Fentanyl, urine Not Detected (Not Detect); Methadone Screen, Urine Not Detected (Not Detect); Opiate Screen Urine Not Detected (Not Detect); Oxycodone Screen Urine Not Detected (Not Detect); Phencyclidine Screen Urine Not Detected (Not Detect)
[2025-02-17 02:07] VITALS: BP 92/60
[2025-02-17] MEDS: cloNIDine HCL 0.1 MG TABLET PO (02:07)
[2025-02-17 04:30] VITALS: BP 92/60; PULSE 74; RESP 16; TEMP 36.6; O2SAT 98
--- NOTE | 2025-02-17 07:02 | PC.NURSE ---
Assumed care of patient at 0645, patient appears to be in no apparent distress this am, sleeping, respirations even and unlabored. Continue plan of care for CARE team eval this am
[2025-02-17] MEDS: FLUoxetine HCl 20 MG CAPSULE PO (07:48)
[2025-02-17] MEDS: lamoTRIgine 100 MG TABLET 200 MG PO ×2 (07:48→20:04)
[2025-02-17] MEDS: Cholecalciferol (Vitamin D3) 25 MCG TABLET 50 MCG PO (07:48)
[2025-02-17] MEDS: OLANZapine 10 MG TABLET PO ×2 (07:48→20:04)
[2025-02-17 17:19] VITALS: BP 100/67; PULSE 82; RESP 16; TEMP 36.6; O2SAT 98
--- NOTE | 2025-02-17 17:22 | PC.NURSE ---
pt repeatedly talking about going to the unit and having multiple friends and family come with pizza and gifts for her birthday on Tuesday. Pt educated regarding limit on outside items and number of visitors, pt continues to perseverate on having a big celebration birthday constitution party on the unit . She continues to report to this RN at respite I can have parties, and when I was 9 and stayed on a unit, I could bring in whatever I wanted . Pt once again educated on limits
--- NOTE | 2025-02-17 17:33 | PHA.MEDREC ---
Addendum entered by Naya Castelan RPh 02/17/25 17:37: MED REC REVIEWED BY [facility] Original Note: Pharmacy Consult ? Medication Reconciliation Reviewed med rec done by nursing.
[2025-02-17] MEDS: traZODone HCL 50 MG TABLET PO (20:04)
[2025-02-17] MEDS: cloNIDine HCL 0.2 MG TABLET PO (20:04)
[2025-02-17 20:11] VITALS: BP 98/61; PULSE 75; RESP 16; TEMP 37.4; O2SAT 98
--- NOTE | 2025-02-18 | ECG_ITS ---
Test Reason : rule out prolong QT Blood Pressure : */* mmHG Vent. Rate : 75 BPM Atrial Rate : 75 BPM P-R Int : 170 ms QRS Dur : 76 ms QT Int : 360 ms P-R-T Axes : 51 36 32 degrees QTcB Int : 402 ms Normal sinus rhythm Normal ECG When compared with ECG of 26-Jan-2017 20:53, No significant change was found Referred By: Naseem Betancur Electronically Signed By: Zhang De La Torre
[2025-02-18 06:26] VITALS: RESP 16
--- NOTE | 2025-02-18 06:28 | PC.NURSE ---
pt provided with headphones and music throughout the night for comfort, pt resting comfortably at this time
--- NOTE | 2025-02-18 07:11 | PC.NURSE ---
This RN assumed care of patient @ 0700. Patient currently sleeping at this time. Patient to continue with IPLOC
[2025-02-18] MEDS: OLANZapine 10 MG TABLET PO ×2 (08:35→22:01)
[2025-02-18] MEDS: Cholecalciferol (Vitamin D3) 25 MCG TABLET 50 MCG PO (08:35)
[2025-02-18] MEDS: FLUoxetine HCl 20 MG CAPSULE PO (08:35)
[2025-02-18] MEDS: lamoTRIgine 100 MG TABLET 200 MG PO ×2 (08:35→22:01)
[2025-02-18 13:15] VITALS: BP 98/64; PULSE 70; RESP 16; TEMP 36.3; O2SAT 98
[2025-02-18 14:45] VITALS: BP 117/63; PULSE 75; RESP 18; TEMP 36.9; O2SAT 98
[2025-02-18 16:15] VITALS: BMI 27.1
--- NOTE | 2025-02-18 16:26 | P.HPPS_ITS ---
HPI Date of Service: 02/18/25 Chief Complaint: SI Sources of Information: patient interviewed, chart reviewed and crisis/core team assessment reviewed HPI Subjective Notes: Goldman Warning and Conditional Voluntary Narrative: Patient is a 29-year-old female with history of MDD and intellectual delay, who presented [place] [facility] [place] due to suicidal ideation to cut her wrists secondary to needing a break from her roommates . Per crisis report, patient reported she was at home and was experiencing urges to go into the kitchen take a knife and cut her wrists . Patient struggles to manage interpersonal distress and records suggest she is known to express SI. Denies HI/VH/AH. Patient reports she needs help in a program to assist with mental health stability . Patient reports frequent arguments at home with peers and staff. Patient stated everyone is mean to me . Patient acknowledges despair in the context to her mother's pending . Patient stated, she told me she is dying . Precipitant triggers include difficulty managing interpersonal stress, mother's compromise health, emotional dysregulation and difficulty tolerating unpleasant emotions and feelings. Patient currently lives in [facility] for D[facility] involved individuals for the past 10 years. History of multiple inpatient psych admissions. Denies any substance use. Utox negative. denies hx of SA. hx of SIB via superficial scratching and banging head on wall. During admission assessment, patient presents alert and oriented x3. Calm and cooperative. Patient reports feeling upset ; patient stated, my roommates are mean to me. The staff say don't talk to me; they treat me like crap. I just wanted a break. I wanted to kill myself a few days ago. I got emotional problems. I don't feel that way now . Patient denies SI/HI/VH/AH. Denies history of SA. She reports history of SIB via superficial scratching and banging head on the wall, when she gets mad . Patient stated, I have a lot of irritations. It was tempting to cut myself but not something that I wanted to do . Patient reports she would like help to maintain her stress level. She reports being medication compliant. Patient focused on discharging on so she can have her birthday constitution party at her home on Tuesday . Past Psychiatric History: Patient currently lives in a [employer] [facility] for DDS involved individuals for the past 10 years. Psychiatrist: Dr. Jacques Riojas [phone] DDS worker: Lin [phone] Legal guardian: Kayleen Parsons [phone] senior care director: Natty Rainey [phone] Denies history of SA. History of SI be via superficially scratching and banging head on wall. Medical Evaluation Reviewed: Yes COUNT INCLUDES THE [facility] Medical History (Updated 02/18/25 @ 16:41 by Magali Spann NP) Major depression Mood disorder Family History: Unknown Social History: Lives in DDS retirement. Single. No kids. 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 Substance History: Denies Trauma History: Denies Diagnostics Vital Signs (24Hr): Vital Signs - 24 hr 02/17/25 17:19 02/17/25 20:11 02/18/25 06:26 Temperature 97.9 F 99.4 F Pulse Rate 82 75 Respiratory Rate 16 16 16 Blood Pressure 100/67 98/61 Pulse Oximetry 98 98 Oxygen Delivery Method Room Air Room Air 02/18/25 13:15 Temperature 97.4 F Pulse Rate 70 Respiratory Rate 16 Blood Pressure 98/64 Pulse Oximetry 98 Oxygen Delivery Method Room Air BMI result Body Mass Index 27.1 Labs 02/16/25 15:42 02/16/25 15:42 Labs: Laboratory Results - last 48 hr 02/16/25 19:41 Urine Color Yellow Urine Appearance Turbid Urine pH 7.0 Ur Specific Goodman 1.010 Urine Protein Trace Urine Glucose (UA) Negative Urine Ketones Negative Urine Blood Negative Urine Nitrite Negative Ur Leukocyte Esterase Trace H Urine RBC 11-20 H Urine WBC >50 H Ur Squamous Epith Cells >20 Urine Bacteria 4+ Hyaline Casts >20 Urine Opiates Screen Not Detected Ur Buprenorphine Scrn Not Detected Ur Oxycodone Screen Not Detected Urine Methadone Screen Not Detected Urine Fentanyl Screen Not Detected Ur Barbiturates Screen Not Detected Ur Phencyclidine Scrn Not Detected Ur Amphetamines Screen Not Detected U Benzodiazepines Scrn Not Detected Urine Cocaine Screen Not Detected U Marijuana (THC) Screen Not Detected Meds/Allergies Meds Home Medications ?Medication ?Instructions ?Recorded ?Confirmed ?Type clonidine HCl 0.2 mg tablet 1 tab PO BEDTIME 10/14/21 02/16/25 History lamotrigine 200 mg tablet 1 tab PO BID 10/14/21 02/16/25 History (Lamictal) acetylcysteine 600 mg capsule (NAC) 600 mg PO BID 01/30/25 02/16/25 History cholecalciferol (vitamin D3) 50 50 mcg PO DAILY 01/30/25 02/16/25 History mcg (2,000 unit) tablet (Vitamin D3) clonidine HCl 0.1 mg tablet 0.1 mg PO DAILY PRN Anxiety 01/30/25 02/16/25 History levonorgestrel-ethinyl estradiol 1 tab PO DAILY 01/30/25 02/16/25 History 0.1 mg-20 mcg tablet (Vienva) trazodone 50 mg tablet 50 mg PO BEDTIME 01/30/25 02/16/25 History fluoxetine 20 mg capsule 20 mg PO DAILY 02/17/25 02/17/25 History olanzapine 20 mg tablet 10 mg PO BID 02/17/25 02/17/25 History Allergies Allergies Allergy/AdvReac Type Severity Reaction Status Date / Time diphenhydramine Allergy Unknown UNKNOWN Verified 02/16/25 15:00 [From BENADRYL] medroxyprogesterone Allergy Unknown UNKNOWN Verified 01/30/25 17:08 [From DEPO-PROVERA] Mental Status Exam Mental Status Exam Narrative: Pt is alert and oriented; behavior is cooperative and calm; dressed in casual attire; mood is described as upset ; eye contact appropriate; Speech is normal rate, volume and not pressured; thought process is organized and goal directed; Thought content is on tx/discharge and concrete; denies SI/HI/VH/AH. Assessment & Plan Assessment & Plan (1) Major depression: Status: Acute Code(s): F32.9 - Major depressive disorder, single episode, unspecified (2) Intellectual delay: Status: Acute Code(s): F81.9 - Developmental disorder of scholastic skills, unspecified Plan Patient is a 29-year-old female with history of MDD and intellectual delay, who presented [place] [facility] [place] due to suicidal ideation to cut her wrists secondary to needing a break from her roommates . Plan: CV 15 minute safety checks Continue home medications Obtain collateral Encourage groups Discharge planning Patient educated on: diagnosis, medication risk/benefits and therapeutic strategies Reason for continued inpatient stay Substantial Risk for: med/psych decompensation Statement Statement: I have reviewed the history and physical and performed a pertinent examination on my patient. No changes have occurred unless specified. If the History and Physical was not performed prior to admission, the Hospitalist's service will be consulted for completing the admission physical. Time Spent With Patient Time: Total time managing care of this patient today _60___ minutes.
--- NOTE | 2025-02-18 17:26 | PC.ADMIT ---
29 year old female DX: Adjustment disorder with anxiety. Referred by CARE team. Signed conditional voluntary followed by three day notice. Dhiraj [place] [facility] [place] on 02/16/25 secondary to needing a break from her roommates , suicidal ideation to cut wrists. Resides in [facility]. States her room mates have been mean to be, tell on me and I don't know why . Has legal guardian Kayleen Parsons [phone]. DSS worker Lin. States she has been in programs since 8 years old, was removed from her parents home at 5 years, I have never had a normal life . Reports her mother is currently in a wheelchair, has health issues, contributing to increased anxiety. Dhiraj engages easily. A+O x4. Calm and cooperative with admission process. Reports mood is depressed and anxious. Denies SI/HI at this time, agrees to engage staff if suicidal feelings return. Full range of affect. Good eye contact. Thought process is concrete, reports history of special education during school. Focused on interview assessment. Denies perceptual disturbances, no overt psychosis or expressed delusions. Denies A/V hallucinations. States she gets angry, If I don't like something I yell . Easily dysregulated with irritations . Reports she can be aggressive stating she has history of head banging, throwing things, screaming and yelling. Reports these behaviors occur daily. History of picking skin, small abrasion observed on skin check above L breast. Endorses emotional problems . Patient reports poor sleep, difficulty falling asleep. Denies appetite disturbances. Non smoker, TOX screen negative, denies substance use. No acute medical problems. Patient oriented to unit. Placed on q 15 minute checks. See nursing assessment/crisis evaluation for further details.
[2025-02-18 19:58] VITALS: BP 108/70; PULSE 80; TEMP 36.4; O2SAT 98
[2025-02-18 22:01] VITALS: BP 129/65
[2025-02-18] MEDS: cloNIDine HCL 0.2 MG TABLET PO (22:01)
[2025-02-18] MEDS: traZODone HCL 50 MG TABLET PO (22:01)
[2025-02-19 08:00] VITALS: RESP 18
[2025-02-19] MEDS: FLUoxetine HCl 20 MG CAPSULE PO (08:27)
[2025-02-19] MEDS: lamoTRIgine 100 MG TABLET 200 MG PO ×2 (08:28→20:16)
[2025-02-19] MEDS: Cholecalciferol (Vitamin D3) 25 MCG TABLET 50 MCG PO (08:28)
[2025-02-19] MEDS: OLANZapine 10 MG TABLET PO ×2 (08:28→20:16)
--- NOTE | 2025-02-19 08:54 | HO.PSYCHPN ---
Subjective Subjective Date of Service: 02/19/25 Reason For Visit: SI Subjective Notes: 3 Day Interim History: Active on unit, social with peers. attending groups. medication compliant. 3 day up on 02/21/25. Pt reports feeling okay today; pt stated, I want to work on my anger problems while I'm here . Encouraged to utilize coping skills. Continues focused on her birthday republican she plans on having at her longterm on Tuesday. denies SI/HI/VH/AH. Continue current tx plan. Medication Compliance: Yes Side effects from medications: No Attending Groups: Yes Mental Status Exam Mental Status Exam Narrative: Pt is alert and oriented; behavior is cooperative and calm; dressed in casual attire; mood is described as okay ; eye contact appropriate; Speech is normal rate, volume and not pressured; thought process is organized and goal directed; Thought content is on tx/discharge; denies SI/HI/VH/AH. Diagnostics Vital Signs (24Hr): Vital Signs - 24 hr 02/18/25 13:15 02/18/25 14:45 02/18/25 19:58 Temperature 97.4 F 98.4 F 97.5 F Pulse Rate 70 75 80 Respiratory Rate 16 18 Blood Pressure 98/64 117/63 108/70 Pulse Oximetry 98 98 98 Oxygen Delivery Method Room Air Room Air Room Air 02/18/25 22:01 Temperature Pulse Rate Respiratory Rate Blood Pressure 129/65 Pulse Oximetry Oxygen Delivery Method BMI result Body Mass Index 27.1 Labs 02/16/25 15:42 02/16/25 15:42 Medications Medications Current Medications Acetaminophen (Acetaminophen 325 Mg Tablet) 650 mg PO Q6H PRN PRN Reason: Headache/Pain, Scale 1-10 Al Hydroxide/Mg Hydroxide (Magnesium Hydrox/Alum Hydrox 30 Ml Oral.Susp) 30 ml PO Q6H PRN PRN Reason: Heartburn/Nausea Clonidine HCl (Clonidine Hcl 0.1 Mg Tablet) 0.1 mg PO DAILY PRN; Protocol PRN Reason: Anxiety Last Admin: 02/17/25 02:07 Dose: 0.1 mg Clonidine HCl (Clonidine Hcl 0.2 Mg Tablet) 0.2 mg PO BEDTIME KACEY; Protocol Last Admin: 02/18/25 22:01 Dose: 0.2 mg Fluoxetine HCl (Fluoxetine Hcl 20 Mg Capsule) 20 mg PO DAILY KACEY Last Admin: 02/19/25 08:27 Dose: 20 mg Hydroxyzine HCl (Hydroxyzine Hcl 25 Mg Tablet) 25 mg PO Q6H PRN PRN Reason: mild anxiety Lamotrigine (Lamotrigine 100 Mg Tablet) 200 mg PO BID [facility] Last Admin: 02/19/25 08:28 Dose: 200 mg Magnesium Hydroxide (Milk Of Magnesia 30 Ml Oral.Susp) 30 ml PO DAILY PRN PRN Reason: Constipation Nicotine Polacrilex (Nicotine Polacrilex 2 Mg Gum) 4 mg BUCCAL Q2H PRN PRN Reason: Nicotine Cravings Non-Formulary Medication (Levonorgestrel-Ethinyl Estrad [Vienva]) 1 tab PO DAILY [facility] Olanzapine (Olanzapine 10 Mg Tablet) 10 mg PO BID [facility] Last Admin: 02/19/25 08:28 Dose: 10 mg Trazodone HCl (Trazodone Hcl 50 Mg Tablet) 50 mg PO BEDTIME [facility] Last Admin: 02/18/25 22:01 Dose: 50 mg Vitamin D (Cholecalciferol (Vitamin D3) 25 Mcg Tablet) 50 mcg PO DAILY [facility] Last Admin: 02/19/25 08:28 Dose: 50 mcg Allergies Allergies Allergy/AdvReac Type Severity Reaction Status Date / Time diphenhydramine Allergy Unknown UNKNOWN Verified 02/16/25 15:00 [From BENADRYL] medroxyprogesterone Allergy Unknown UNKNOWN Verified 01/30/25 17:08 [From DEPO-PROVERA] Assessment & Plan Assessment & Plan (1) Major depression: Status: Acute Code(s): F32.9 - Major depressive disorder, single episode, unspecified (2) Intellectual delay: Status: Acute Code(s): F81.9 - Developmental disorder of scholastic skills, unspecified Plan Patient is a 29-year-old female with history of MDD and intellectual delay, who presented to [facility] via [place] due to suicidal ideation to cut her wrists secondary to needing a break from her roommates . Plan: CV 15 minute safety checks Continue home medications Obtain collateral Encourage groups Discharge planning 02/19: Active on unit, social with peers. attending groups. medication compliant. 3 day up on 02/21/25. Pt reports feeling okay today; pt stated, I want to work on my anger problems while I'm here . Encouraged to utilize coping skills. Continues focused on her birthday republican she plans on having at her longterm on Tuesday. denies SI/HI/VH/AH. Continue current tx plan. Patient educated on: diagnosis, medication risk/benefits and therapeutic strategies Reason for continued inpatient stay Substantial Risk for: med/psych decompensation Time Spent With Patient Time: Total time managing care of this patient today _20___ minutes.
[2025-02-19 12:15] VITALS: BP 122/69
[2025-02-19] MEDS: cloNIDine HCL 0.1 MG TABLET PO (12:15)
[2025-02-19 20:00] VITALS: BP 123/75; PULSE 73; RESP 16; TEMP 36.3; O2SAT 99
[2025-02-19 20:17] VITALS: BP 123/75
[2025-02-19] MEDS: traZODone HCL 50 MG TABLET PO (20:17)
[2025-02-19] MEDS: cloNIDine HCL 0.2 MG TABLET PO (20:17)
[2025-02-20 07:58] VITALS: BP 105/60; PULSE 78; RESP 16; TEMP 36.6; O2SAT 99
[2025-02-20] MEDS: OLANZapine 10 MG TABLET PO ×2 (08:29→20:04)
[2025-02-20] MEDS: FLUoxetine HCl 20 MG CAPSULE PO (08:29)
[2025-02-20] MEDS: Cholecalciferol (Vitamin D3) 25 MCG TABLET 50 MCG PO (08:29)
[2025-02-20] MEDS: lamoTRIgine 100 MG TABLET 200 MG PO ×2 (08:29→20:04)
--- NOTE | 2025-02-20 09:22 | P.PNPSI_ITS ---
Subjective Subjective Date of Service: 02/20/25 Reason For Visit: SI Subjective Notes: 3 Day Interim History: Pt reports feeling good today; pt reports she is looking forward to returning home and having her birthday libertarian. pt denies any issues at this time. per nursing, slept 8 hours last night. denies SI/HI/VH/AH. Pt reports she plans on following up with her outpatient providers. Medication Compliance: Yes Side effects from medications: No Attending Groups: Yes Mental Status Exam Mental Status Exam Narrative: Pt is alert and oriented; behavior is cooperative and calm; dressed in casual attire; mood is described as good ; eye contact appropriate; Speech is normal rate, volume and not pressured; thought process is organized; Thought content is on discharge; denies SI/HI/VH/AH. Diagnostics Vital Signs (24Hr): Vital Signs - 24 hr 02/19/25 12:15 02/19/25 20:00 02/19/25 20:17 Temperature 97.3 F Pulse Rate 73 Respiratory Rate 16 Blood Pressure 122/69 123/75 123/75 Pulse Oximetry 99 Oxygen Delivery Method Room Air 02/20/25 07:58 Temperature 97.8 F Pulse Rate 78 Respiratory Rate 16 Blood Pressure 105/60 Pulse Oximetry 99 Oxygen Delivery Method Room Air BMI result Body Mass Index 27.1 Labs 02/16/25 15:42 02/20/25 10:41 Medications Medications Current Medications Acetaminophen (Acetaminophen 325 Mg Tablet) 650 mg PO Q6H PRN PRN Reason: Headache/Pain, Scale 1-10 Al Hydroxide/Mg Hydroxide (Magnesium Hydrox/Alum Hydrox 30 Ml Oral.Susp) 30 ml PO Q6H PRN PRN Reason: Heartburn/Nausea Clonidine HCl (Clonidine Hcl 0.1 Mg Tablet) 0.1 mg PO DAILY PRN; Protocol PRN Reason: Anxiety Last Admin: 02/19/25 12:15 Dose: 0.1 mg Clonidine HCl (Clonidine Hcl 0.2 Mg Tablet) 0.2 mg PO BEDTIME KACEY; Protocol Last Admin: 02/19/25 20:17 Dose: 0.2 mg Fluoxetine HCl (Fluoxetine Hcl 20 Mg Capsule) 20 mg PO DAILY KACEY Last Admin: 02/20/25 08:29 Dose: 20 mg Hydroxyzine HCl (Hydroxyzine Hcl 25 Mg Tablet) 25 mg PO Q6H PRN PRN Reason: mild anxiety Lamotrigine (Lamotrigine 100 Mg Tablet) 200 mg PO BID [facility] Last Admin: 02/20/25 08:29 Dose: 200 mg Magnesium Hydroxide (Milk Of Magnesia 30 Ml Oral.Susp) 30 ml PO DAILY PRN PRN Reason: Constipation Nicotine Polacrilex (Nicotine Polacrilex 2 Mg Gum) 4 mg BUCCAL Q2H PRN PRN Reason: Nicotine Cravings Non-Formulary Medication (Levonorgestrel-Ethinyl Estrad [Vienva]) 1 tab PO DAILY [facility] Olanzapine (Olanzapine 10 Mg Tablet) 10 mg PO BID [facility] Last Admin: 02/20/25 08:29 Dose: 10 mg Trazodone HCl (Trazodone Hcl 50 Mg Tablet) 50 mg PO BEDTIME [facility] Last Admin: 02/19/25 20:17 Dose: 50 mg Vitamin D (Cholecalciferol (Vitamin D3) 25 Mcg Tablet) 50 mcg PO DAILY [facility] Last Admin: 02/20/25 08:29 Dose: 50 mcg Allergies Allergies Allergy/AdvReac Type Severity Reaction Status Date / Time diphenhydramine (From Allergy Unknown UNKNOWN Verified 02/16/25 15:00 BENADRYL) medroxyprogesterone (From Allergy Unknown UNKNOWN Verified 01/30/25 17:08 DEPO-PROVERA) Assessment & Plan Assessment & Plan (1) Major depression: Status: Acute Code(s): F32.9 - Major depressive disorder, single episode, unspecified (2) Intellectual delay: Status: Acute Code(s): F81.9 - Developmental disorder of scholastic skills, unspecified Plan Patient is a 29-year-old female with history of MDD and intellectual delay, who presented to [facility] via EMS due to suicidal ideation to cut her wrists secondary to needing a break from her roommates . Plan: CV 15 minute safety checks Continue home medications Obtain collateral Encourage groups Discharge planning 02/19: Active on unit, social with peers. attending groups. medication compliant. 3 day up on 02/21/25. Pt reports feeling okay today; pt stated, I want to work on my anger problems while I'm here . Encouraged to utilize coping skills. Continues focused on her birthday libertarian she plans on having at her intermediate on Tuesday. denies SI/HI/VH/AH. Continue current tx plan. 02/20: Pt reports feeling good today; pt reports she is looking forward to returning home and having her birthday libertarian. pt denies any issues at this time. per nursing, slept 8 hours last night. denies SI/HI/VH/AH. Pt reports she plans on following up with her outpatient providers. Patient educated on: diagnosis and medication risk/benefits Reason for continued inpatient stay Substantial Risk for: stable for discharge Time Spent With Patient Time: Total time managing care of this patient today _20___ minutes.
[2025-02-20] MEDS: Acetaminophen 325 MG TABLET 650 MG PO ×2 (09:41→20:05)
[2025-02-20 11:06] LABS: Estimated Average Glucose 85 mg/dL; Hemoglobin A1c % 4.6 % (<6.0); Total Hemoglobin (HGBA1C) 3563.2753 umol/L
[2025-02-20 11:14] LABS: Alanine Aminotransferase 12 U/L (0-31); Albumin Level 4.1 g/dL (3.5-5.0); Alkaline Phosphatase 57 U/L (39-117); Anion Gap 11 (12-20); Aspartate Amino Transferase 17 U/L (5-31); Bilirubin Total 0.2 mg/dL (0.0-1.0); Blood Urea Nitrogen 13 mg/dL (9-16); Calcium 9.6 mg/dL (8.4-10.2); Carbon Dioxide 26 mmol/L (22-29); Chloride 108 mmol/L (96-108); Cholesterol 204 mg/dL (<200); Creatinine Clr Calc Pharmacy 132.9; Estimated Glomerular Filt Rate > 60; Glucose Random 110 mg/dL (60-115); HDL Cholesterol 47 mg/dL (>40); LDL Cholesterol Calculated 142 mg/dL (<100); Potassium 3.9 mmol/L (3.3-5.1); Sodium 141 mmol/L (135-145); Total Protein 7.2 g/dL (6.5-8.0); Triglycerides 78 mg/dL (<150)
[2025-02-20] MEDS: Loperamide HCl 2 MG CAPSULE 4 MG PO (13:44)
[2025-02-20 20:00] VITALS: BP 113/66; PULSE 75; RESP 16; TEMP 36.5; O2SAT 96
[2025-02-20] MEDS: traZODone HCL 50 MG TABLET PO (20:04)
[2025-02-20 20:06] VITALS: BP 113/66
[2025-02-20] MEDS: cloNIDine HCL 0.1 MG TABLET PO (20:06)
[2025-02-20 20:09] VITALS: BP 113/66
[2025-02-20] MEDS: cloNIDine HCL 0.2 MG TABLET PO (20:09)
[2025-02-21 07:25] VITALS: BP 100/56; PULSE 68; RESP 12; TEMP 36.9; O2SAT 97
[2025-02-21] MEDS: OLANZapine 10 MG TABLET PO (08:48)
[2025-02-21] MEDS: Cholecalciferol (Vitamin D3) 25 MCG TABLET 50 MCG PO (08:48)
[2025-02-21] MEDS: FLUoxetine HCl 20 MG CAPSULE PO (08:48)
[2025-02-21] MEDS: lamoTRIgine 100 MG TABLET 200 MG PO (08:48)
--- NOTE | 2025-02-21 09:55 | PM.PSYDC ---
DS: Providers Provider Date of Service: 02/21/25 Date of admission: 02/18/25 12:36 Date of discharge: 02/21/25 Primary care physician: Unknown Physician Admitting clinician: Magali Spann Attending physician on admission: Issa Mckinnon Attending physician on discharge: Issa Mckinnon Discharging clinician: Magali Spann DS: Diagnosis Discharge Diagnosis (1) Major depression: Status: Acute (2) Intellectual delay: Status: Acute DS: Medications Discharge Medications Home Medications: Home Medications ?Medication ?Instructions ?Recorded ?Confirmed clonidine HCl 0.2 mg tablet 1 tab PO BEDTIME 10/14/21 02/16/25 lamotrigine 200 mg tablet 1 tab PO BID 10/14/21 02/16/25 (Lamictal) acetylcysteine 600 mg capsule (NAC) 600 mg PO BID 01/30/25 02/16/25 cholecalciferol (vitamin D3) 50 50 mcg PO DAILY 01/30/25 02/16/25 mcg (2,000 unit) tablet (Vitamin D3) clonidine HCl 0.1 mg tablet 0.1 mg PO DAILY PRN Anxiety 01/30/25 02/16/25 levonorgestrel-ethinyl estradiol 1 tab PO DAILY 01/30/25 02/16/25 0.1 mg-20 mcg tablet (Vienva) trazodone 50 mg tablet 50 mg PO BEDTIME 01/30/25 02/16/25 fluoxetine 20 mg capsule 20 mg PO DAILY 02/17/25 02/17/25 olanzapine 20 mg tablet 10 mg PO BID 02/17/25 02/17/25 Mental Status Exam Mental Status Exam Narrative: Pt is alert and oriented; behavior is cooperative and calm; dressed in casual attire; mood is described as good ; eye contact appropriate; Speech is normal rate, volume and not pressured; thought process is organized; Thought content is on discharge; denies SI/HI/VH/AH. Data Data Completed and Pending Completed studies during hospitalization [Text1]: 02/16/25 02/16/25 02/20/25 15:42 19:41 10:41 WBC 6.0 RBC 4.28 Hgb 13.2 Hct 37.2 MCV 86.9 MCH 30.8 MCHC 35.5 H RDW 12.0 Plt Count 242 MPV 8.3 L Immature Gran % (Auto) 0.2 Neut % (Auto) 61.4 Lymph % (Auto) 31.4 [place] % (Auto) 6.7 Eos % (Auto) 0.0 Baso % (Auto) 0.3 Lymph # (Auto) 1.9 [place] # (Auto) 0.4 Eos # (Auto) 0.0 Baso # (Auto) 0.0 Abs Immat Gran (auto) 0.01 Absolute Neuts (auto) 3.7 Absolute Nucleated RBC 0.000 Nucleated RBC % (auto) 0.0 Sodium 142 141 Potassium 3.8 3.9 Chloride 107 108 Carbon Dioxide 27 26 Anion Gap 12 11 L BUN 16 13 Creatinine 0.83 0.75 Estim Creat Clear Calc 109.1 132.9 Estimated GFR > 60 > 60 Random Glucose 95 110 Estimat Average Glucose 85 Hemoglobin A1c % 4.6 Calcium 9.5 9.6 Total Bilirubin 0.2 0.2 AST 13 17 ALT 18 12 Alkaline Phosphatase 52 57 Total Protein 7.5 7.2 Albumin 4.3 4.1 Triglycerides 78 Cholesterol 204 H LDL Cholesterol, Calc 142 H HDL Cholesterol 47 Lipase 23 Beta HCG, Quant < 2 Urine Color Yellow Urine Appearance Turbid Urine pH 7.0 Ur Specific [place] 1.010 Urine Protein Trace Urine Glucose (UA) Negative Urine Ketones Negative Urine Blood Negative Urine Nitrite Negative Ur Leukocyte Esterase Trace H Urine RBC 11-20 H Urine WBC >50 H Ur Squamous Epith Cells >20 Urine Bacteria 4+ Hyaline Casts >20 Urine Opiates Screen Not Detected Ur Buprenorphine Scrn Not Detected Ur Oxycodone Screen Not Detected Urine Methadone Screen Not Detected Urine Fentanyl Screen Not Detected Ur Barbiturates Screen Not Detected Ur Phencyclidine Scrn Not Detected Ur Amphetamines Screen Not Detected U Benzodiazepines Scrn Not Detected Urine Cocaine Screen Not Detected U Marijuana (THC) Screen Not Detected DS: Summary Hospital Course Hospital Course: Patient is a 29-year-old female with history of MDD and intellectual delay, who presented to [facility] via EMS due to suicidal ideation to cut her wrists secondary to needing a break from her roommates . Per crisis report, patient reported she was at home and was experiencing urges to go into the kitchen take a knife and cut her wrists . Patient struggles to manage interpersonal distress and records suggest she is known to express SI. Denies HI/VH/AH. Patient reports she needs help in a program to assist with mental health stability . Patient reports frequent arguments at home with peers and staff. Patient stated everyone is mean to me . Patient acknowledges despair in the context to her mother's pending . Patient stated, she told me she is dying . Precipitant triggers include difficulty managing interpersonal stress, mother's compromise health, emotional dysregulation and difficulty tolerating unpleasant emotions and feelings. Patient currently lives in a [facility] assisted for DDS involved individuals for the past 10 years. History of multiple inpatient psych admissions. Denies any substance use. Utox negative. denies hx of SA. hx of SIB via superficial scratching and banging head on wall. During admission assessment, patient presents alert and oriented x3. Calm and cooperative. Patient reports feeling upset ; patient stated, my roommates are mean to me. The staff say don't talk to me; they treat me like crap. I just wanted a break. I wanted to kill myself a few days ago. I got emotional problems. I don't feel that way now . Patient denies SI/HI/VH/AH. Denies history of SA. She reports history of SIB via superficial scratching and banging head on the wall, when she gets mad . Patient stated, I have a lot of irritations. It was tempting to cut myself but not something that I wanted to do . Patient reports she would like help to maintain her stress level. She reports being medication compliant. Patient focused on discharging on so she can have her birthday democrat at her home on Tuesday . Plan: CV 15 minute safety checks Continue home medications Obtain collateral Encourage groups Discharge planning Active on unit, social with peers. attending groups. medication compliant. 3 day up on 02/21/25. Pt reports feeling okay today; pt stated, I want to work on my anger problems while I'm here . Encouraged to utilize coping skills. Continues focused on her birthday democrat she plans on having at her assisted on Tuesday. denies SI/HI/VH/AH. Continue current tx plan. Pt reports feeling good today; pt reports she is looking forward to returning home and having her birthday democrat. pt denies any issues at this time. per nursing, slept 8 hours last night. denies SI/HI/VH/AH. Pt reports she plans on following up with her outpatient providers. Status at Discharge Cognitive/behavioral status at discharge: Patient has insight and demonstrates good judgment in terms of wanting to pursue treatment. Patient has a safety plan that includes presenting to the closest ER or calling 911 if feeling unsafe. Functional status at discharge: independent ambulation Overall status at discharge: patient is back to baseline Time Spent with Patient Time attestation: Total time managing care of this patient today _20___ minutes. Time spent: Less than 30 minutes Discharge Plan Discharge Anticipated Discharge Date/Time: 02/21/25 12:00 Patient Disposition: Home, Self-Care Discharge Diagnosis: MDD, intellectual delay Referrals: Dr. Riojas ([facility]) [Other] - 03/13/25 10:00 am Referral Note: follow up appointment in the [place] office. [facility] [Provider Group] - 1 Week Referral Note: 02-19-25 [facility] was added to patients chart. Please call [phone] to schedule a follow up appt within 7-10 days of discharge. No release or PCP on file. Discharge Medications: Continued lamotrigine [Lamictal] 200 mg tablet 1 tab PO BID clonidine HCl 0.2 mg tablet 1 tab PO BEDTIME trazodone 50 mg Tablet 50 mg PO BEDTIME cholecalciferol (vitamin D3) [Vitamin D3] 50 mcg (2,000 unit) Tablet 50 mcg PO DAILY clonidine HCl 0.1 mg Tablet 0.1 mg PO DAILY PRN (Reason: Anxiety) levonorgestrel-ethinyl estrad [Vienva] 0.1-20 mg-mcg Tablet 1 tab PO DAILY acetylcysteine [NAC] 600 mg Capsule 600 mg PO BID fluoxetine 20 mg capsule 20 mg PO DAILY olanzapine 20 mg tablet 10 mg PO BID Discharge Orders: Discharge Order (Routine); Ordered 02/21/25 Ordered By: Magali Spann Diet: Regular diet Activity on Discharge: As tolerated Stand Alone Forms: Patient Portal Discharge page, Community Support Print Language: Unable To Collect Care Plan Goals: Maintain mood and safe behaviors Take medications as prescribed Practice coping skills Continue with outpatient providers and reach out to them as needed Health Concerns: Mood stability and behaviors Plan of Treatment: Follow up with your PCP, psychiatric provider and other outpatient providers regarding above concerns Take medications as prescribed Assessment: Patient has insight and demonstrates good judgment in terms of wanting to pursue treatment. Patient has a safety plan that includes presenting to the closest ER or calling 911 if feeling unsafe.
--- NOTE | 2025-02-21 12:35 | PC.NURSE ---
Patient easily engaged. Reports mood is stable, denies depression or anxiety, denies SI/HI at this time. Denies perceptual disturbances, no overt psychosis or expressed delusions. Discharge instructions reviewed with patient, reports understanding. Medications reviewed with patient, reports understanding. Follow up appointment reviewed with patient, reports understanding. Information provided regarding obtaining a PCP through [facility]. States she felt it helped her to be here. Future oriented, looking forward to birthday this weekend. All belongings taken with patient. Crisis numbers provided to patient. No prescriptions given at this time.
== END 2025-02-21 11:52 | disposition home or self-care (01) | DRG 881 ==
LOC: HO.ED 02-18 12:46 → HO.PADLT16 02-18 12:46
PROVIDERS: Physician Assistant; Admitting Provider Registered Nurse; Emergency Provider Emergency Medicine; Responsible Provider Registered Nurse; Visit Provider Psychiatry & Neurology Psychiatry
DX: F32.9 Major depressive disorder, single episode, unspecified (principal); R45.851 Suicidal ideations; F81.9 Developmental disorder of scholastic skills, unspecified; Z87.891 Personal history of nicotine dependence; Z79.899 Other long term (current) drug therapy
CPT/HCPCS: 36415; 80053; 80061; 80307; 81001; 83036; 83690; 84702; 85025; 93005; 99285; S9485

== ENCOUNTER → 2025-02-18 08:05 | Outpatient (BNV) | payer MEDICARE, MEDICAID, SELFPAY | PROVIDERS: Admitting Provider Registered Nurse; Emergency Provider Emergency Medicine; Responsible Provider Registered Nurse; Visit Provider Internal Medicine Cardiovascular Disease | DX: Z13.6 Encounter for screening for cardiovascular disorders (principal) | CPT/HCPCS: 93010 ==

== ENCOUNTER → 2025-02-18 12:36 | Outpatient (BNV) | payer MEDICARE, MEDICAID, SELFPAY | PROVIDERS: Admitting Provider Registered Nurse; Emergency Provider Emergency Medicine; Responsible Provider Registered Nurse; Visit Provider Registered Nurse | DX: F32.2 Major depressive disorder, single episode, severe without psychotic features (principal); F81.9 Developmental disorder of scholastic skills, unspecified | CPT/HCPCS: 90792; 99231; 99232; 99238 ==

== ENCOUNTER 2025-02-26 19:00 | Inpatient (IN) | payer MEDICARE, MEDICAID, SELFPAY ==
[2025-02-26 19:17] VITALS: BP 118/87; BP 141/65; PULSE 106; PULSE 110; RESP 18; TEMP 37.1; O2SAT 98; O2SAT 99; BMI 27.4
--- NOTE | 2025-02-26 19:43 | ED.PSYCH ---
HPI - Psych General Chief Complaint: Psychiatric Symptoms Stated Complaint: crisis Time Seen by Provider: 02/26/25 19:27 Source: patient, EMS and old records reviewed Mode of arrival: EMS Limitations: no limitations History of Present Illness ED Provider: DR. Perry HPI Narrative: 30-year-old female with history of anxiety, adjustment and conduct disorder, depression, SI came in by ambulance from a correction after having an argument with correction staff patient threatened to hurt herself, patient feels overwhelmed, anxious, suicidal who is her current living situation. Seen then sent back to the correction last week. Patient declined any auditory or visual hallucination. Related Data Home Medications ?Medication ?Instructions ?Recorded ?Confirmed clonidine HCl 0.2 mg tablet 1 tab PO BEDTIME 10/14/21 02/26/25 lamotrigine 200 mg tablet 1 tab PO BID 10/14/21 02/26/25 (Lamictal) cholecalciferol (vitamin D3) 50 50 mcg PO DAILY 01/30/25 02/26/25 mcg (2,000 unit) tablet (Vitamin D3) clonidine HCl 0.1 mg tablet 0.1 mg PO DAILY PRN Anxiety 01/30/25 02/26/25 levonorgestrel-ethinyl estradiol 1 tab PO DAILY 01/30/25 02/26/25 0.1 mg-20 mcg tablet (Vienva) trazodone 50 mg tablet 50 mg PO BEDTIME 01/30/25 02/26/25 fluoxetine 20 mg capsule 20 mg PO DAILY 02/17/25 02/26/25 olanzapine 20 mg tablet 10 mg PO BID 02/17/25 02/26/25 bismuth subsalicylate 262 mg/15 mL 262 mg PO Q6H PRN Indigestion 02/27/25 02/27/25 oral suspension cetyl and stearate 1 appl topical NEEDED PRN Dry 02/27/25 02/27/25 alcohol-propylen glycol-sls Skin topical cream (Cetaphil topical cream) dextromethorphan-guaifenesin 10 5 ml PO Q6H PRN Cough 02/27/25 02/27/25 mg-100 mg/5 mL oral syrup ibuprofen 400 mg tablet 400 mg PO Q8H PRN Pain/Fever 02/27/25 02/27/25 mineral oil-hydrophil petrolat 1 appl topical Q12H PRN 02/27/25 02/27/25 topical ointment Scabs/Healing Wounds Allergies Allergy/AdvReac Type Severity Reaction Status Date / Time diphenhydramine (From Allergy Unknown UNKNOWN Verified 02/26/25 19:20 BENADRYL) medroxyprogesterone (From Allergy Unknown UNKNOWN Verified 02/26/25 19:20 DEPO-PROVERA) Review of Systems Review of Systems: All other systems are reviewed and are negative Constitutional: Reports as per HPI and Reports no additional constitutional complaints Eyes: Reports as per HPI and Reports no additional eye complaints Reports system reviewed and no additional complaints, except as documented Cardiovascular: Reports as per HPI and Reports no additional cardiovascular complaints Respiratory: Reports as per HPI and Reports no additional respiratory complaints Gastrointestinal: Reports as per HPI and Reports no additional gastrointestinal complaints Genitourinary: Reports no additional female genitourinary complaints Musculoskeletal: Reports no additional musculoskeletal complaints Skin/Breast: Reports system reviewed and no additional complaints, except as docu Psychiatric: Reports no additional psychiatric complaints Endocrine: Reports no additional endocrine complaints Hematologic/Lymphatic: Reports no additional hematologic/lymphatic complaints Allergic/Immunologic: Reports no additional allergic/immunologic complaints Reports system reviewed and no additional complaints, except as documented and Reports Abnormal speech present [facility] Past Medical History Medical History Major depression Mood disorder Social History Social History Household Members: Other Household Members Other:: 3-4 staff, 3 roommates Housing: House Do you presently have visiting nurse or other home services: No Alcohol intake: never Patient Tobacco Use Status: Former Tobacco user Smoked in Last 30 Days: No Second Hand Smoke Exposure: No Use of substances other than those prescribed or required for medical reasons: No Advance Directives: No Advance Directives Information Provided: Yes Do you have a plan to hurt others: No Plan Patient : No service: No Sexual orientation: Straight/Heterosexual Physical Exam Vital Signs: Vital Signs: Last Vital Signs Temp 98 F 02/27/25 19:44 Pulse 85 02/27/25 19:44 Resp 16 02/28/25 06:43 BP 136/77 02/27/25 19:44 Pulse Ox 99 02/27/25 19:44 O2 Del Method Room Air 02/28/25 06:43 BMI result Body Mass Index 27.4 Vital signs have been reviewed and appear to be correct. Blood pressure elevated. Slightly tachycardia secondary to being anxious, Respiratory rate normal. Temperature normal. Oxygen saturation normal. Appearance: Alert. Oriented X3. No acute distress. Head: Normal external exam. Normocephalic. Atraumatic. No Pedersen signs noted. No raccoon eyes noted Eyes: PERRLA. EOMI. Conjunctiva and sclera normal. Eyelids normal. ENT: TM's Normal. Pharynx normal. Uvula midline. Moist mucous membranes. No trismus noted. No drooling noted. No muffled voice noted. Neck: Normal inspection. Neck supple. FROM. No adenopathy. Thyroid Normal. No meningeal signs. No neck mass noted. CVS: Normal heart rate and rhythm. Heart sound normal. No murmurs noted. Pulses normal throughout. Respiratory: No respiratory distress. Painless inspiration. Breath sounds normal. No wheezes/rales/rhonchi noted. Chest nontender. No accessory muscle usage noted or decreased air movement noted. Abdomen: Soft and nontender. Bowel sounds normal in all 4 quadrants. No distention noted. No organomegaly noted. No visible injury noted. Back: No CVA tenderness. Full range of motion noted. Skin: Skin warm and dry. Normal skin color. Normal skin turgor. No rashes/lesions/lacerations noted. Extremities: No lower extremity edema. Extremities exhibit normal range of motion. Extremities nontender. Neuro: Oriented X 3. Cranial nerve exam: II-XII are grossly intact No motor deficit. No sensory deficit. Reflexes normal. Patient Orientation: Tearful, Person, Place, Time and Situation, okay hygiene and grooming. Fair eye contact, attentive, no tics or tremors. Level of Consciousness: Awake, Appropriate and Alert Patient Behavior: Appropriate, Guarded, Cooperative and Anxious Mood Description: Constricted, Blunted and Apprehensive Affect Description: Constricted, Blunted and Apprehensive Patient Cognition Impaired: No Ability to Follow Directions: Excellent Speech Pattern: Clear, Appropriate and Spontaneous Speech, nonpressured, spontaneous with regular rate and rhythm, normal volume and prosody. No dysarthria. Memory Description: Intact, Immediate Intact and Short Term Intact Hallucinations: None Delusions: Not Present Thought Process: Intact Thought Content: positive for Intact, positive for Logical, denies Homicidal Ideation, + suicidal ideation. Depressive Symptoms: Not present. Judgement and Insight: Limited but adequate. Course Reevaluation(s) Reevaluation #1: Medically cleared, continue physician observation, await for care team evaluation. Time: 20:15 Reevaluation #2: Patient is seen with the care team and will be an inpatient bed search for psychiatric care. She was placed on a section 12 Time: 22:32 Reevaluation #3: Time: 16:35 Date: 02/27/25 Provider: Felipe Gray MD Patient in physician observation for psychiatric evaluation.? No acute events reported overnight. No acute events during the day so far today. No current complaints. VS stable aside from mild tachycardia.? Patient is in bed search status. Will continue to monitor. Additional Reevaluation(s): DR. Perry's Progress note:02/28/2025 8;40. No events overnight, home medication reconciliation was done, VSS, no event reported by nursing overnight, inpatient bed search is underway, Continue with physician observation. Consultations Consultation #1: DR. Perry's Progress note: 02/28/2025 13:27. Patient is leaving the ER will be admitted to [facility] discontinue physician observation now. Time: 13:27 Medications Administered Generic Name Dose Route Start Last Admin Trade Name Freq PRN Reason Stop Dose Admin Clonidine HCl 0.2 mg 02/26/25 23:15 02/27/25 19:42 Clonidine Hcl 0.2 Mg Tablet PO 0.2 mg BEDTIME KACEY Administration Protocol Fluoxetine HCl 20 mg 02/27/25 09:00 02/28/25 10:17 Fluoxetine Hcl 20 Mg Capsule PO 20 mg DAILY KACEY Administration Lamotrigine 200 mg 02/26/25 23:15 02/28/25 10:16 Lamotrigine 100 Mg Tablet PO 200 mg BID KACEY Administration Olanzapine 10 mg 02/26/25 23:15 02/28/25 10:16 Olanzapine 10 Mg Tablet PO 10 mg BID KACEY Administration Trazodone HCl 50 mg 02/26/25 23:15 02/27/25 19:43 Trazodone Hcl 50 Mg Tablet PO 50 mg BEDTIME KACEY Administration Vitamin D 50 mcg 02/27/25 09:00 02/28/25 10:16 Cholecalciferol (Vitamin D3) 25 Mcg Tablet PO 50 mcg DAILY KACEY Administration Discontinued Medications Generic Name Dose Route Start Last Admin Trade Name Henok PRN Reason Stop Dose Admin Ibuprofen 600 mg 02/27/25 19:39 02/27/25 19:42 Ibuprofen 600 Mg Tablet PO 02/27/25 19:40 600 mg ONCE ONE Administration Lorazepam 1 mg 02/26/25 20:13 02/26/25 20:28 Lorazepam 1 Mg Tablet PO 02/26/25 20:14 1 mg ONCE ONE Administration Medical Decision Making Differential Diagnosis Differential Diagnoses: The differential diagnosis associated with the presentation includes (Kill clearance, electrolyte derangement, severe anemia, SI, HI, hallucination.) Admission/Observation Consideration of admission/observation: Escalation of care including admission/observation considered Lab Data 02/26/25 20:27 02/26/25 20:27 Labs: Lab Results 02/26/25 02/27/25 Range/Units 20:27 11:11 WBC 8.3 (4.8-10.8) X10*3/uL RBC 4.47 (4.20-5.50) X10*6/uL Hgb 13.4 (12.0-16.0) g/dl Hct 39.7 (37.0-47.0) % MCV 88.8 (80.0-98.0) fL MCH 30.0 (27.0-33.0) pg MCHC 33.8 (31.0-35.0) g/dl RDW 11.9 (11.0-16.0) % Plt Count 252 (160-400) X10*3/uL MPV 8.4 L (9.4-12.3) fL Immature Gran % (Auto) 0.5 H (0.0-0.4) % Neut % (Auto) 49.3 (45-73) % Lymph % (Auto) 40.6 H (20-40) % [place] % (Auto) 7.6 (2-11) % Eos % (Auto) 1.8 (0-4) % Baso % (Auto) 0.2 (0-2) % Lymph # (Auto) 3.4 (1.2-4.9) X10*3/uL [place] # (Auto) 0.6 (0.1-1.2) X10*3/uL Eos # (Auto) 0.2 (0.0-0.4) X10*3/uL Baso # (Auto) 0.0 (0.0-0.2) X10*3/uL Abs Immat Gran (auto) 0.04 H (0.00-0.03) X10*3/uL Absolute Neuts (auto) 4.1 (2.0-8.3) x10*3/uL Absolute Nucleated RBC 0.000 (0.0-0.012) X10*3/uL Nucleated RBC % (auto) 0.0 (0.0-0.2) /100WBC Sodium 140 (135-145) mmol/L Potassium 3.6 (3.3-5.1) mmol/L Chloride 109 H (96-108) mmol/L Carbon Dioxide 23 (22-29) mmol/L Anion Gap 12 (12-20) BUN 7 L (9-16) mg/dL Creatinine 0.75 (0.5-1.4) mg/dL Estim Creat Clear Calc 124.0 Estimated GFR > 60 Random Glucose 94 (60-115) mg/dL Calcium 9.3 (8.4-10.2) mg/dL Total Bilirubin 0.2 (0.0-1.0) mg/dL Direct Bilirubin < 0.2 (0.0-0.5) mg/dL AST 13 (5-31) U/L ALT 13 (0-31) U/L Alkaline Phosphatase 60 (39-117) U/L Total Protein 7.5 (6.5-8.0) g/dL Albumin 4.4 (3.5-5.0) g/dL Urine Color Yellow Urine Appearance Cloudy Urine pH 6.0 (5.0-9.0) Ur Specific [place] 1.010 (1.005-1.025) Urine Protein Negative (Neg-Trace) mg/dL Urine Glucose (UA) Negative (Negative) mg/dL Urine Ketones Negative (Negative) mg/dL Urine Blood Trace H (Negative) Urine Nitrite Negative (Negative) Ur Leukocyte Esterase Moderate (2+) H (Negative) Urine RBC 0-2 (0-2) /HPF Urine WBC 0-5 (0-5) /HPF Ur Squamous Epith Cells 6-10 (0-2) /HPF Urine Bacteria 4+ (None Seen) Hyaline Casts 0-2 (0-2) /LPF Urine Test NEGATIVE (NEGATIVE) Urine Opiates Screen Not Detected (Not Detect) Ur Buprenorphine Scrn Not Detected (Not Detect) ng/mL Ur Oxycodone Screen Not Detected (Not Detect) ng/mL Urine Methadone Screen Not Detected (Not Detect) ng/mL Urine Fentanyl Screen Not Detected (Not Detect) Ur Barbiturates Screen Not Detected (Not Detect) Ur Phencyclidine Scrn Not Detected (Not Detect) Ur Amphetamines Screen Not Detected (Not Detect) U Benzodiazepines Scrn Not Detected (Not Detect) Urine Cocaine Screen Not Detected (Not Detect) U Marijuana (THC) Screen Not Detected (Not Detect) Ethyl Alcohol 13 mg/dL Discharge Plan Discharge Clinical Impression: Suicidal ideation Patient Disposition: Admitted As Inpatient Interventions: Ogle-Suicide Risk Severity Scale Last Done: 02/28/25 05:49 Admission Worksheet (ED) Last Done: 02/28/25 14:26 Discharge Date/Time: 02/28/25 14:27
--- NOTE | 2025-02-26 19:58 | MHC.EDTECH ---
pt is refusing to provide UA sample and BLOODWORK. RN AWARE.
[2025-02-26 20:40] LABS: MANUAL DIFF FLAG NO
[2025-02-26 20:41] LABS: Hematocrit 39.7 % (37.0-47.0); Hemoglobin 13.4 g/dl (12.0-16.0); Imm Gran Abs Auto 0.04 X10*3/uL (0.00-0.03); Imm Gran Pct Auto 0.5 % (0.0-0.4); Lymphocytes Absolute Auto 3.4 X10*3/uL (1.2-4.9); Mean Corpuscular HGB Conc 33.8 g/dl (31.0-35.0); Mean Corpuscular Hemoglobin 30.0 pg (27.0-33.0); Mean Corpuscular Volume 88.8 fL (80.0-98.0); NRBC Abs Auto 0.000 X10*3/uL (0.0-0.012); NRBC Pct Auto 0.0 /100WBC (0.0-0.2); Platelet Count 252 X10*3/uL (160-400); Red Blood Count 4.47 X10*6/uL (4.20-5.50); White Blood Count 8.3 X10*3/uL (4.8-10.8)
[2025-02-26 20:55] LABS: Alanine Aminotransferase 13 U/L (0-31); Albumin Level 4.4 g/dL (3.5-5.0); Alkaline Phosphatase 60 U/L (39-117); Anion Gap 12 (12-20); Aspartate Amino Transferase 13 U/L (5-31); Blood Urea Nitrogen 7 mg/dL (9-16); Calcium 9.3 mg/dL (8.4-10.2); Carbon Dioxide 23 mmol/L (22-29); Chloride 109 mmol/L (96-108); Creatinine Clr Calc Pharmacy 124.0; Estimated Glomerular Filt Rate > 60; Potassium 3.6 mmol/L (3.3-5.1); Sodium 140 mmol/L (135-145); Total Protein 7.5 g/dL (6.5-8.0)
--- NOTE | 2025-02-26 21:15 | PC.NURSE ---
patient periodically expressive and dysregulated, fearful of mom leaving her forever and states she hasnt had therapy in weeks. cooperative, states she cried daily at home, staff agitates her
[2025-02-26 23:51] VITALS: BP 118/87
--- NOTE | 2025-02-27 | ECG_ITS ---
Test Reason : omoruna Blood Pressure : */* mmHG Vent. Rate : 80 BPM Atrial Rate : 80 BPM P-R Int : 154 ms QRS Dur : 90 ms QT Int : 364 ms P-R-T Axes : 40 37 34 degrees QTcB Int : 419 ms Normal sinus rhythm Normal ECG When compared with ECG of 18-Feb-2025 08:05, No significant change was found Referred By: Tanya Perry Electronically Signed By: JALIL LEBLANC
--- NOTE | 2025-02-27 07:52 | PC.NURSE ---
Assumed care of patient at 0645, patient appears to be in no apparent distress this am, sleeping, respiriations even and unlabored. Continue plan of care for IPLOC
[2025-02-27 07:53] VITALS: RESP 16
[2025-02-27 11:22] LABS: Appearance Urine Cloudy; Glucose Urine UA Negative (Negative); PH 6.0 (5.0-9.0); Specific Gravity - Urine 1.010 (1.005-1.025); UMIC TRIGGER UACC YES
[2025-02-27 11:24] LABS: UPreg QC Valid YES
[2025-02-27 11:31] LABS: UACC Culture Trigger YES
[2025-02-27 11:32] LABS: Cannabinoid Screen Urine Not Detected (Not Detect)
[2025-02-27 13:52] VITALS: BP 119/74; PULSE 71; RESP 16; TEMP 37.2; O2SAT 99
--- NOTE | 2025-02-27 13:55 | PC.NURSE ---
Patient appears to be in no apparent distress at this time, sleeping, respirations even and unlabored
[2025-02-27 19:42] VITALS: BP 136/77
[2025-02-27 19:44] VITALS: BP 136/77; PULSE 85; RESP 16; TEMP 36.6; O2SAT 99
--- NOTE | 2025-02-27 22:31 | PHA.MEDREC ---
Addendum entered by Leila Hong RPh 02/27/25 22:42: REVIEWED BY [facility] Original Note: Pharmacy Consult ? Medication Reconciliation Pharmacy verified med rec done by nursing. Got list from [facility] and compared to med rec confirmed, the list matched but nursing left out Aquaphor ointment, Peoto Bismol, Cataphil, Ibuprofen and Robutussin that I added to the [facility] rec since they are apart of the list from the facility and still active.
[2025-02-28 06:43] VITALS: RESP 16
[2025-02-28 14:38] VITALS: BP 134/76; PULSE 86; RESP 15; TEMP 36.8; O2SAT 98
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
[2025-02-28 19:48] VITALS: BP 121/77; PULSE 81; RESP 14; TEMP 36.7; O2SAT 98
[2025-02-28 20:45] VITALS: BP 121/77
[2025-03-01 07:53] VITALS: BP 100/57; PULSE 75; RESP 14; TEMP 36.9; O2SAT 97
--- NOTE | 2025-03-01 15:31 | P.PNPSI_ITS ---
Subjective Subjective Date of Service: 03/01/25 Reason For Visit: SI Subjective Notes: Conditional Voluntary Healthcare Proxy: No Guardianship: Yes Medical Problems Affecting Mental Status: No Interim History: Medical record and nursing notes reviewed; case discussed during rounds with team, and met with patient for supportive therapy/psychoeducation, as well as medication management. Inherited patient today, met with her in the dining room as she does not want to move to auto room for privacy. Reports feeling anxious and irritable towards the roommate to the point she scratch herself on the left hand. Per nursing patient did not scratch herself to bleed but has the bandage on. She slept for 8 hours was medication compliant and observe going to groups. Hyper focused on not to return to [facility] residential where she stay for 10 years due to disrespectful from staff. She asked if possible to getting to another residential. Ensure patient that we may not able to make that happen but we will touch base with her residential staff. She wants to make sure that she can stay until next Tuesday if possible to stay longer away from the residential. Deny suicidal thoughts homicidal thoughts denies voices hallucinations. Irritable to work a roommate who on relapse today. Stress reduce after this peer discharged. Medication Compliance: Yes Side effects from medications: No Attending Groups: Yes Review of Systems Acute medical concerns: No Medical Review of Systems: unchanged Review of Systems Review of Systems Constitutional: Denies fatigue and Denies fever(s) Cardiovascular: Denies chest pain and Denies dyspnea Respiratory: Denies dyspnea Gastrointestinal: Denies abdominal pain Psychiatric: denies suicidal ideation Endocrine: Denies fatigue SKin: She scratches herself after superficial self-harm due to increased anxiety today. Nursing the bandage on (left hand) Yes all other systems are reviewed and are negative Mental Status Exam Mental Status Exam Narrative: Appearance/Clothing: Casually dressed, clean, in NAD, and appears stated age Eye Contact: WNL Posture: WNL Body Movement: No psychomotor agitation or retardation noted. No tremors or tics. Gait is normal Behavior: anxious, irritable toward roommate but Cooperative Speech: WNL, Clear Affect: constriced to full range Thought content: Denies HI/SI/AVH or thoughts of self-harm; -delusions; - paranoia; -perceptual disturbances. However she scratched herself on left hand due to increased anxiety. Thought Process: Hyper focused on housing. Repeated saying she does not want to get back to her [facility] residential and wants to make sure that her residential staff is aware. Orientation: Oriented x 4 Memory: Intact Insight: Poor Judgment: Poor Diagnostics Vital Signs (24Hr): Vital Signs - 24 hr 02/28/25 19:48 02/28/25 20:45 03/01/25 07:53 Temperature 98.1 F 98.5 F Pulse Rate 81 75 Respiratory Rate 14 14 Blood Pressure 121/77 121/77 100/57 L Pulse Oximetry 98 97 Oxygen Delivery Method Room Air Room Air BMI result Body Mass Index 27.4 Labs 02/26/25 20:27 02/26/25 20:27 Labs: Laboratory Results - last 48 hr 02/26/25 20:27 Ethyl Alcohol 13 Medications Medications Current Medications Acetaminophen (Acetaminophen 325 Mg Tablet) 650 mg PO Q6H PRN PRN Reason: Headache/Pain, Scale 1-10 Al Hydroxide/Mg Hydroxide (Magnesium Hydrox/Alum Hydrox 30 Ml Oral.Susp) 30 ml PO Q6H PRN PRN Reason: Heartburn/Nausea Bismuth Subsalicylate (Bismuth Subsalicylate Liquid 524 Mg/30 Ml Oral.Susp) 262 mg PO Q6H PRN PRN Reason: Indigestion Clonidine HCl (Clonidine Hcl 0.1 Mg Tablet) 0.1 mg PO DAILY PRN; Protocol PRN Reason: Anxiety Clonidine HCl (Clonidine Hcl 0.2 Mg Tablet) 0.2 mg PO BEDTIME [facility]ACE[facility]; Protocol Last Admin: 02/28/25 20:45 Dose: 0.2 mg Fluoxetine HCl (Fluoxetine Hcl 20 Mg Capsule) 20 mg PO DAILY [facility] Last Admin: 03/01/25 08:17 Dose: 20 mg Guaifenesin/Dextromethorphan (Guaifenesin Dm 100/10/5 Ml 5 Ml Syrup) 5 ml PO Q6H PRN PRN Reason: Cough Hydroxyzine HCl (Hydroxyzine Hcl 50 Mg Tablet) 50 mg PO Q6H PRN PRN Reason: mild anxiety Ibuprofen (Ibuprofen 400 Mg Tablet) 400 mg PO Q8H PRN PRN Reason: Pain/Fever Last Admin: 02/28/25 20:45 Dose: 400 mg Lamotrigine (Lamotrigine 100 Mg Tablet) 200 mg PO BID [facility] Last Admin: 03/01/25 08:17 Dose: 200 mg Magnesium Hydroxide (Milk Of Magnesia 30 Ml Oral.Susp) 30 ml PO DAILY PRN PRN Reason: Constipation Nicotine Polacrilex (Nicotine Polacrilex 2 Mg Gum) 4 mg BUCCAL Q2H PRN PRN Reason: Nicotine Cravings Non-Formulary Medication (Levonorgestrel-Ethinyl Estrad [Vienva]) 1 tab PO DAILY [facility] Olanzapine (Olanzapine 10 Mg Tablet) 10 mg PO BID [facility] Last Admin: 03/01/25 08:17 Dose: 10 mg Trazodone HCl (Trazodone Hcl 50 Mg Tablet) 50 mg PO BEDTIME [facility] Last Admin: 02/28/25 20:45 Dose: 50 mg Vitamin D (Cholecalciferol (Vitamin D3) 25 Mcg Tablet) 50 mcg PO DAILY [facility] Last Admin: 03/01/25 08:17 Dose: 50 mcg Allergies Allergies Allergy/AdvReac Type Severity Reaction Status Date / Time diphenhydramine (From Allergy Unknown UNKNOWN Verified 02/26/25 19:20 BENADRYL) medroxyprogesterone (From Allergy Unknown UNKNOWN Verified 02/26/25 19:20 DEPO-PROVERA) Assessment & Plan Assessment & Plan (1) MDD (major depressive disorder), recurrent episode: Status: Acute Code(s): F33.9 - Major depressive disorder, recurrent, unspecified (2) Intellectual delay: Status: Acute Code(s): F81.9 - Developmental disorder of scholastic skills, unspecified Plan Patient is a 30-year-old female with history of MDD and intellectual delay, who presented to [facility] via EMS due to making suicidal statements secondary to getting into an argument with her residential staff. 03/01/25: Good appetite slept for 8 hours, attended to groups, and was medication compliant, cooperative but appears anxious and irritable toward the roommate who left this morning even after the roommate already discharge. She scratched her left hand due to increased anxiety. Hyper focused on not returning to residential as most of staff were disrespectful . Deny SI/HI/AVH. SIBx1. Redirectable. Review medication p.r.n. for anxiety, increase hydroxyzine p.r.n. up to 50 mg from 25 mg. Plan: CV Continue with 5 minute safety checks. CV Continue home medications. Reach out to guardian to update regarding treatment plan. Obtain collateral. loft worker apprentice is aware and make sure the DDS residential where she stays knowing that she does not want to return. Encourage groups: Observe attended to groups Discharge planning: Possibility on next week on Tuesday. Patient wanted to specifically to stay in 2 Tuesday to get more time away from the residential. Patient educated on: medication risk/benefits and therapeutic strategies Informed Consent: understands Reason for continued inpatient stay Substantial Risk for: harm to self and med/psych decompensation Time Spent With Patient Time: Total time managing care of this patient today ____ minutes.
[2025-03-01 20:00] VITALS: BP 127/64; PULSE 76; RESP 16; TEMP 36.9; O2SAT 98
[2025-03-01 22:14] VITALS: BP 112/67; PULSE 83; RESP 16; TEMP 36.7; O2SAT 99
[2025-03-02 07:45] VITALS: BP 117/69; PULSE 88; RESP 16; TEMP 36.4; O2SAT 98
--- NOTE | 2025-03-02 11:10 | P.PNPSI_ITS ---
Subjective Subjective Date of Service: 03/02/25 Reason For Visit: SI Subjective Notes: Conditional Voluntary Interim History: Pt slept through the night. She reports she is feeling better but wants to make sure she is here on the unit until Tuesday. She denies SI/HI. She is mostly on the phone but redirectable. taking medications. Medication Compliance: Yes Side effects from medications: No Review of Systems Review of Systems Constitutional: Denies fatigue and Denies fever(s) Cardiovascular: Denies chest pain and Denies dyspnea Respiratory: Denies dyspnea Gastrointestinal: Denies abdominal pain Psychiatric: denies suicidal ideation Endocrine: Denies fatigue SKin: She scratches herself after superficial self-harm due to increased anxiety today. Nursing the bandage on (left hand) Yes all other systems are reviewed and are negative Mental Status Exam Mental Status Exam Narrative: Appearance/Clothing: Casually dressed, clean, in NAD, and appears stated age Eye Contact: WNL Posture: WNL Body Movement: No psychomotor agitation or retardation noted. No tremors or tics. Gait is normal Behavior: anxious, irritable toward roommate but Cooperative Speech: WNL, Clear Affect: constriced to full range Thought content: Denies HI/SI/AVH or thoughts of self-harm; -delusions; - paranoia; -perceptual disturbances. However she scratched herself on left hand due to increased anxiety. Thought Process: Hyper focused on housing. Repeated saying she does not want to get back to her DDS custodial and wants to make sure that her custodial staff is aware. Orientation: Oriented x 4 Memory: Intact Insight: Poor Judgment: Poor Patient Appearance: Appropriate Patient Orientation: Person, Place, Time and Situation Level of Consciousness: Awake and Alert Patient Behavior: Appropriate, Cooperative and Good Eye Contact Mood Description: Calm Affect Description: Calm Ability to Follow Directions: Good Speech Pattern: Clear Memory Description: Intact Diagnostics Vital Signs (24Hr): Vital Signs - 24 hr 03/01/25 20:00 03/01/25 22:14 03/02/25 07:45 Temperature 98.4 F 98.1 F 97.6 F Pulse Rate 76 83 88 Respiratory Rate 16 16 16 Blood Pressure 127/64 112/67 117/69 Pulse Oximetry 98 99 98 Oxygen Delivery Method Room Air Room Air Room Air BMI result Body Mass Index 27.4 Labs 02/26/25 20:27 02/26/25 20:27 Medications Medications Current Medications Acetaminophen (Acetaminophen 325 Mg Tablet) 650 mg PO Q6H PRN PRN Reason: Headache/Pain, Scale 1-10 Al Hydroxide/Mg Hydroxide (Magnesium Hydrox/Alum Hydrox 30 Ml Oral.Susp) 30 ml PO Q6H PRN PRN Reason: Heartburn/Nausea Bismuth Subsalicylate (Bismuth Subsalicylate Liquid 524 Mg/30 Ml Oral.Susp) 262 mg PO Q6H PRN PRN Reason: Indigestion Clonidine HCl (Clonidine Hcl 0.1 Mg Tablet) 0.1 mg PO DAILY PRN; Protocol PRN Reason: Anxiety Clonidine HCl (Clonidine Hcl 0.2 Mg Tablet) 0.2 mg PO BEDTIME [facility]; Protocol Last Admin: 03/01/25 22:16 Dose: 0.2 mg Fluoxetine HCl (Fluoxetine Hcl 20 Mg Capsule) 20 mg PO DAILY [facility] Last Admin: 03/02/25 08:57 Dose: 20 mg Guaifenesin/Dextromethorphan (Guaifenesin Dm 100/10/5 Ml 5 Ml Syrup) 5 ml PO Q6H PRN PRN Reason: Cough Hydroxyzine HCl (Hydroxyzine Hcl 50 Mg Tablet) 50 mg PO Q6H PRN PRN Reason: mild anxiety Ibuprofen (Ibuprofen 400 Mg Tablet) 400 mg PO Q8H PRN PRN Reason: Pain/Fever Last Admin: 02/28/25 20:45 Dose: 400 mg Lamotrigine (Lamotrigine 100 Mg Tablet) 200 mg PO BID [facility] Last Admin: 03/02/25 08:57 Dose: 200 mg Magnesium Hydroxide (Milk Of Magnesia 30 Ml Oral.Susp) 30 ml PO DAILY PRN PRN Reason: Constipation Nicotine Polacrilex (Nicotine Polacrilex 2 Mg Gum) 4 mg BUCCAL Q2H PRN PRN Reason: Nicotine Cravings Non-Formulary Medication (Levonorgestrel-Ethinyl Estrad [Vienva]) 1 tab PO DAILY [facility] Olanzapine (Olanzapine 10 Mg Tablet) 10 mg PO BID [facility] Last Admin: 03/02/25 08:57 Dose: 10 mg Trazodone HCl (Trazodone Hcl 50 Mg Tablet) 50 mg PO BEDTIME [facility] Last Admin: 03/01/25 22:16 Dose: 50 mg Vitamin D (Cholecalciferol (Vitamin D3) 25 Mcg Tablet) 50 mcg PO DAILY [facility] Last Admin: 03/02/25 08:57 Dose: 50 mcg Allergies Allergies Allergy/AdvReac Type Severity Reaction Status Date / Time diphenhydramine (From Allergy Unknown UNKNOWN Verified 02/26/25 19:20 BENADRYL) medroxyprogesterone (From Allergy Unknown UNKNOWN Verified 02/26/25 19:20 DEPO-PROVERA) Assessment & Plan Assessment & Plan (1) MDD (major depressive disorder), recurrent episode: Status: Acute Code(s): F33.9 - Major depressive disorder, recurrent, unspecified (2) Intellectual delay: Status: Acute Code(s): F81.9 - Developmental disorder of scholastic skills, unspecified Plan Patient is a 30-year-old female with history of MDD and intellectual delay, who presented to [facility] via EMS due to making suicidal statements secondary to getting into an argument with her custodial staff. 03/01/25: Good appetite slept for 8 hours, attended to groups, and was medication compliant, cooperative but appears anxious and irritable toward the roommate who left this morning even after the roommate already discharge. She scratched her left hand due to increased anxiety. Hyper focused on not returning to custodial as most of staff were disrespectful . Deny SI/HI/AVH. SIBx1. Redirectable. Review medication p.r.n. for anxiety, increase hydroxyzine p.r.n. up to 50 mg from 25 mg. 03/02 continue tx. Reason for continued inpatient stay Substantial Risk for: inability to function Time Spent With Patient Time: Total time managing care of this patient today ____ minutes.
[2025-03-02 22:15] VITALS: BP 110/79; PULSE 89; RESP 14; TEMP 36.9; O2SAT 97
[2025-03-03 08:36] VITALS: BP 117/79; PULSE 101; RESP 16; TEMP 36.4; O2SAT 99
--- NOTE | 2025-03-03 17:47 | P.PNPSI_ITS ---
Subjective Subjective Date of Service: 03/03/25 Reason For Visit: SI Subjective Notes: Conditional Voluntary Interim History: Pt slept through the night. She reports she is feeling better but wants to make sure she is here on the unit until Tuesday. She denies SI/HI. She is mostly on the phone but redirectable. taking medications. Review of Systems Review of Systems Constitutional: Denies fatigue and Denies fever(s) Cardiovascular: Denies chest pain and Denies dyspnea Respiratory: Denies dyspnea Gastrointestinal: Denies abdominal pain Psychiatric: denies suicidal ideation Endocrine: Denies fatigue SKin: She scratches herself after superficial self-harm due to increased anxiety today. Nursing the bandage on (left hand) Yes all other systems are reviewed and are negative Mental Status Exam Mental Status Exam Narrative: Appearance/Clothing: Casually dressed, clean, in NAD, and appears stated age Eye Contact: WNL Posture: WNL Body Movement: No psychomotor agitation or retardation noted. No tremors or tics. Gait is normal Behavior: anxious, irritable toward roommate but Cooperative Speech: WNL, Clear Affect: constriced to full range Thought content: Denies HI/SI/AVH or thoughts of self-harm; -delusions; - paranoia; -perceptual disturbances. However she scratched herself on left hand due to increased anxiety. Thought Process: Hyper focused on housing. Repeated saying she does not want to get back to her [facility] snf and wants to make sure that her snf staff is aware. Orientation: Oriented x 4 Memory: Intact Insight: Poor Judgment: Poor Diagnostics Vital Signs (24Hr): Vital Signs - 24 hr 03/02/25 22:15 03/03/25 08:36 Temperature 98.5 F 97.5 F Pulse Rate 89 101 H Respiratory Rate 14 16 Blood Pressure 110/79 117/79 Pulse Oximetry 97 99 Oxygen Delivery Method Room Air Room Air BMI result Body Mass Index 27.4 Labs 02/26/25 20:27 02/26/25 20:27 Medications Medications Current Medications Acetaminophen (Acetaminophen 325 Mg Tablet) 650 mg PO Q6H PRN PRN Reason: Headache/Pain, Scale 1-10 Last Admin: 03/03/25 17:21 Dose: 650 mg Al Hydroxide/Mg Hydroxide (Magnesium Hydrox/Alum Hydrox 30 Ml Oral.Susp) 30 ml PO Q6H PRN PRN Reason: Heartburn/Nausea Bismuth Subsalicylate (Bismuth Subsalicylate Liquid 524 Mg/30 Ml Oral.Susp) 262 mg PO Q6H PRN PRN Reason: Indigestion Clonidine HCl (Clonidine Hcl 0.1 Mg Tablet) 0.1 mg PO DAILY PRN; Protocol PRN Reason: Anxiety Clonidine HCl (Clonidine Hcl 0.2 Mg Tablet) 0.2 mg PO BEDTIME [facility]; Protocol Last Admin: 03/02/25 22:16 Dose: 0.2 mg Docusate Sodium (Docusate Sodium 100 Mg Capsule) 100 mg PO BID PRN PRN Reason: constipation Fluoxetine HCl (Fluoxetine Hcl 20 Mg Capsule) 20 mg PO DAILY [facility] Last Admin: 03/03/25 09:11 Dose: 20 mg Guaifenesin/Dextromethorphan (Guaifenesin Dm 100/10/5 Ml 5 Ml Syrup) 5 ml PO Q6H PRN PRN Reason: Cough Hydroxyzine HCl (Hydroxyzine Hcl 50 Mg Tablet) 50 mg PO Q6H PRN PRN Reason: mild anxiety Ibuprofen (Ibuprofen 400 Mg Tablet) 400 mg PO Q8H PRN PRN Reason: Pain/Fever Last Admin: 03/03/25 14:21 Dose: 400 mg Lamotrigine (Lamotrigine 100 Mg Tablet) 200 mg PO BID [facility] Last Admin: 03/03/25 09:11 Dose: 200 mg Magnesium Hydroxide (Milk Of Magnesia 30 Ml Oral.Susp) 30 ml PO DAILY PRN PRN Reason: Constipation Nicotine Polacrilex (Nicotine Polacrilex 2 Mg Gum) 4 mg BUCCAL Q2H PRN PRN Reason: Nicotine Cravings Olanzapine (Olanzapine 10 Mg Tablet) 10 mg PO BID [facility] Last Admin: 03/03/25 09:11 Dose: 10 mg Trazodone HCl (Trazodone Hcl 50 Mg Tablet) 50 mg PO BEDTIME [facility] Last Admin: 03/02/25 22:16 Dose: 50 mg Vitamin D (Cholecalciferol (Vitamin D3) 25 Mcg Tablet) 50 mcg PO DAILY [facility] Last Admin: 03/03/25 09:10 Dose: 50 mcg Allergies Allergies Allergy/AdvReac Type Severity Reaction Status Date / Time diphenhydramine (From Allergy Unknown UNKNOWN Verified 02/26/25 19:20 BENADRYL) medroxyprogesterone (From Allergy Unknown UNKNOWN Verified 02/26/25 19:20 DEPO-PROVERA) Assessment & Plan Assessment & Plan (1) MDD (major depressive disorder), recurrent episode: Status: Acute Code(s): F33.9 - Major depressive disorder, recurrent, unspecified (2) Intellectual delay: Status: Acute Code(s): F81.9 - Developmental disorder of scholastic skills, unspecified Plan Patient is a 30-year-old female with history of MDD and intellectual delay, who presented [place] [facility] [place] due to making suicidal statements secondary to getting into an argument with her snf staff. 03/01/25: Good appetite slept for 8 hours, attended to groups, and was medication compliant, cooperative but appears anxious and irritable toward the roommate who left this morning even after the roommate already discharge. She scratched her left hand due to increased anxiety. Hyper focused on not returning to snf as most of staff were disrespectful . Deny SI/HI/AVH. SIBx1. Redirectable. Review medication p.r.n. for anxiety, increase hydroxyzine p.r.n. up to 50 mg from 25 mg. 03/02 continue tx. 03/03 continue tx. Plan: CV Continue with 5 minute safety checks. CV Continue home medications. Reach out to guardian to update regarding treatment plan. Obtain collateral. hot mill worker is aware and make sure the [facility] snf where she stays knowing that she does not want to return. Encourage groups: Observe attended to groups Discharge planning: Possibility on next week on Tuesday. Patient wanted to specifically to stay in 2 Tuesday to get more time away from the snf. Reason for continued inpatient stay Substantial Risk for: harm to self Time Spent With Patient Time: Total time managing care of this patient today ____ minutes.
[2025-03-03 20:10] VITALS: BP 116/74; PULSE 85; RESP 16; TEMP 36.9; O2SAT 97
[2025-03-03 20:12] VITALS: BP 116/74
[2025-03-04 09:07] VITALS: BP 109/73; PULSE 91; RESP 16; TEMP 36.2; O2SAT 98
--- NOTE | 2025-03-04 09:31 | P.PNPSI_ITS ---
Subjective Subjective Date of Service: 03/04/25 Reason For Visit: SI Subjective Notes: Conditional Voluntary Interim History: Active on unit. social with peers. attending groups. Patient reports feeling better today; observed on phone multiple times throughout the day. denies SI/HI/VH/AH. Plan to return to assisted on Tuesday; pt aware; pt focused on discussing being switching to a different home with her DDS worker. Continue current tx plan. Medication Compliance: Yes Side effects from medications: No Attending Groups: Yes Mental Status Exam Mental Status Exam Narrative: Pt is alert and oriented; behavior is cooperative and calm; dressed in casual attire; mood is described as better ; eye contact appropriate; Speech is normal rate, volume and not pressured; thought process is organized and goal directed; Thought content is on tx; denies SI/HI/VH/AH. Diagnostics Vital Signs (24Hr): Vital Signs - 24 hr 03/03/25 20:10 03/03/25 20:12 03/04/25 09:07 Temperature 98.4 F 97.2 F Pulse Rate 85 91 Respiratory Rate 16 16 Blood Pressure 116/74 116/74 109/73 Pulse Oximetry 97 98 Oxygen Delivery Method Room Air Room Air BMI result Body Mass Index 27.4 Labs 02/26/25 20:27 02/26/25 20:27 Medications Medications Current Medications Acetaminophen (Acetaminophen 325 Mg Tablet) 650 mg PO Q6H PRN PRN Reason: Headache/Pain, Scale 1-10 Last Admin: 03/03/25 17:21 Dose: 650 mg Al Hydroxide/Mg Hydroxide (Magnesium Hydrox/Alum Hydrox 30 Ml Oral.Susp) 30 ml PO Q6H PRN PRN Reason: Heartburn/Nausea Bismuth Subsalicylate (Bismuth Subsalicylate Liquid 524 Mg/30 Ml Oral.Susp) 262 mg PO Q6H PRN PRN Reason: Indigestion Clonidine HCl (Clonidine Hcl 0.1 Mg Tablet) 0.1 mg PO DAILY PRN; Protocol PRN Reason: Anxiety Clonidine HCl (Clonidine Hcl 0.2 Mg Tablet) 0.2 mg PO BEDTIME [facility]; Protocol Last Admin: 03/03/25 20:12 Dose: 0.2 mg Docusate Sodium (Docusate Sodium 100 Mg Capsule) 100 mg PO BID PRN PRN Reason: constipation Last Admin: 06/29/25 20:13 Dose: 100 mg Fluoxetine HCl (Fluoxetine Hcl 20 Mg Capsule) 20 mg PO DAILY [facility] Last Admin: 03/04/25 09:00 Dose: 20 mg Guaifenesin/Dextromethorphan (Guaifenesin Dm 100/10/5 Ml 5 Ml Syrup) 5 ml PO Q6H PRN PRN Reason: Cough Hydroxyzine HCl (Hydroxyzine Hcl 50 Mg Tablet) 50 mg PO Q6H PRN PRN Reason: mild anxiety Last Admin: 03/03/25 18:34 Dose: 50 mg Ibuprofen (Ibuprofen 400 Mg Tablet) 400 mg PO Q8H PRN PRN Reason: Pain/Fever Last Admin: 03/03/25 14:21 Dose: 400 mg Lamotrigine (Lamotrigine 100 Mg Tablet) 200 mg PO BID [facility] Last Admin: 03/04/25 09:00 Dose: 200 mg Magnesium Hydroxide (Milk Of Magnesia 30 Ml Oral.Susp) 30 ml PO DAILY PRN PRN Reason: Constipation Nicotine Polacrilex (Nicotine Polacrilex 2 Mg Gum) 4 mg BUCCAL Q2H PRN PRN Reason: Nicotine Cravings Olanzapine (Olanzapine 10 Mg Tablet) 10 mg PO BID [facility] Last Admin: 03/04/25 09:00 Dose: 10 mg Trazodone HCl (Trazodone Hcl 50 Mg Tablet) 50 mg PO BEDTIME [facility] Last Admin: 03/03/25 20:13 Dose: 50 mg Vitamin D (Cholecalciferol (Vitamin D3) 25 Mcg Tablet) 50 mcg PO DAILY [facility] Last Admin: 03/04/25 09:00 Dose: 50 mcg Allergies Allergies Allergy/AdvReac Type Severity Reaction Status Date / Time diphenhydramine (From Allergy Unknown UNKNOWN Verified 02/26/25 19:20 BENADRYL) medroxyprogesterone (From Allergy Unknown UNKNOWN Verified 02/26/25 19:20 DEPO-PROVERA) Assessment & Plan Assessment & Plan (1) MDD (major depressive disorder), recurrent episode: Status: Acute Code(s): F33.9 - Major depressive disorder, recurrent, unspecified (2) Intellectual delay: Status: Acute Code(s): F81.9 - Developmental disorder of scholastic skills, unspecified Plan Patient is a 30-year-old female with history of MDD and intellectual delay, who presented to [facility] via EMS due to making suicidal statements secondary to getting into an argument with her assisted staff. 03/01/25: Good appetite slept for 8 hours, attended to groups, and was medication compliant, cooperative but appears anxious and irritable toward the roommate who left this morning even after the roommate already discharge. She scratched her left hand due to increased anxiety. Hyper focused on not returning to assisted as most of staff were disrespectful . Deny SI/HI/AVH. SIBx1. Redirectable. Review medication p.r.n. for anxiety, increase hydroxyzine p.r.n. up to 50 mg from 25 mg. 03/02 continue tx. 03/04: Active on unit. social with peers. attending groups. Patient reports feeling better today; observed on phone multiple times throughout the day. denies SI/HI/VH/AH. Plan to return to assisted on Tuesday; pt aware; pt focused on discussing being switching to a different home with her DDS worker. Continue current tx plan. Patient educated on: diagnosis, medication risk/benefits and therapeutic strategies Reason for continued inpatient stay Substantial Risk for: med/psych decompensation Time Spent With Patient Time: Total time managing care of this patient today _20___ minutes.
[2025-03-04 20:01] VITALS: BP 122/76; PULSE 83; TEMP 36.8; O2SAT 98
[2025-03-04 22:54] VITALS: BP 114/69
[2025-03-05 10:15] VITALS: BMI 29.1
--- NOTE | 2025-03-05 13:37 | P.PNPSI_ITS ---
Subjective Subjective Date of Service: 03/05/25 Reason For Visit: SI Subjective Notes: Conditional Voluntary Interim History: Patient reports feeling good ; denies any issues at this time. denies SI/HI/VH/AH. focused on returning home. Pt reports she plans on following up with her outpatient providers. Medication Compliance: Yes Side effects from medications: No Attending Groups: Yes Mental Status Exam Mental Status Exam Narrative: Pt is alert and oriented; behavior is cooperative and calm; dressed in casual attire; mood is described as good ; eye contact appropriate; Speech is normal rate, volume and not pressured; thought process is organized; Thought content is on discharge; denies SI/HI/VH/AH. Diagnostics Vital Signs (24Hr): Vital Signs - 24 hr 03/04/25 20:01 03/04/25 22:54 Temperature 98.2 F Pulse Rate 83 Blood Pressure 122/76 114/69 Pulse Oximetry 98 Oxygen Delivery Method Room Air BMI result Body Mass Index 29.1 Labs 02/26/25 20:27 02/26/25 20:27 Medications Medications Current Medications Acetaminophen (Acetaminophen 325 Mg Tablet) 650 mg PO Q6H PRN PRN Reason: Headache/Pain, Scale 1-10 Last Admin: 03/03/25 17:21 Dose: 650 mg Al Hydroxide/Mg Hydroxide (Magnesium Hydrox/Alum Hydrox 30 Ml Oral.Susp) 30 ml PO Q6H PRN PRN Reason: Heartburn/Nausea Bismuth Subsalicylate (Bismuth Subsalicylate Liquid 524 Mg/30 Ml Oral.Susp) 262 mg PO Q6H PRN PRN Reason: Indigestion Clonidine HCl (Clonidine Hcl 0.1 Mg Tablet) 0.1 mg PO DAILY PRN; Protocol PRN Reason: Anxiety Clonidine HCl (Clonidine Hcl 0.2 Mg Tablet) 0.2 mg PO BEDTIME [facility]; Protocol Last Admin: 03/04/25 22:54 Dose: 0.2 mg Docusate Sodium (Docusate Sodium 100 Mg Capsule) 100 mg PO BID PRN PRN Reason: constipation Last Admin: 03/03/25 20:13 Dose: 100 mg Fluoxetine HCl (Fluoxetine Hcl 20 Mg Capsule) 20 mg PO DAILY [facility] Last Admin: 03/05/25 09:06 Dose: 20 mg Guaifenesin/Dextromethorphan (Guaifenesin Dm 100/10/5 Ml 5 Ml Syrup) 5 ml PO Q6H PRN PRN Reason: Cough Hydroxyzine HCl (Hydroxyzine Hcl 50 Mg Tablet) 50 mg PO Q6H PRN PRN Reason: mild anxiety Last Admin: 03/04/25 23:56 Dose: 50 mg Ibuprofen (Ibuprofen 400 Mg Tablet) 400 mg PO Q8H PRN PRN Reason: Pain/Fever Last Admin: 03/03/25 14:21 Dose: 400 mg Lamotrigine (Lamotrigine 100 Mg Tablet) 200 mg PO BID [facility] Last Admin: 03/05/25 09:06 Dose: 200 mg Magnesium Hydroxide (Milk Of Magnesia 30 Ml Oral.Susp) 30 ml PO DAILY PRN PRN Reason: Constipation Nicotine Polacrilex (Nicotine Polacrilex 2 Mg Gum) 4 mg BUCCAL Q2H PRN PRN Reason: Nicotine Cravings Olanzapine (Olanzapine 10 Mg Tablet) 10 mg PO BID [facility] Last Admin: 03/05/25 09:06 Dose: 10 mg Trazodone HCl (Trazodone Hcl 50 Mg Tablet) 50 mg PO BEDTIME [facility] Last Admin: 03/04/25 22:55 Dose: 50 mg Vitamin D (Cholecalciferol (Vitamin D3) 25 Mcg Tablet) 50 mcg PO DAILY [facility] Last Admin: 03/05/25 09:06 Dose: 50 mcg Allergies Allergies Allergy/AdvReac Type Severity Reaction Status Date / Time diphenhydramine (From Allergy Unknown UNKNOWN Verified 02/26/25 19:20 BENADRYL) medroxyprogesterone (From Allergy Unknown UNKNOWN Verified 02/26/25 19:20 DEPO-PROVERA) Assessment & Plan Assessment & Plan (1) MDD (major depressive disorder), recurrent episode: Status: Acute Code(s): F33.9 - Major depressive disorder, recurrent, unspecified (2) Intellectual delay: Status: Acute Code(s): F81.9 - Developmental disorder of scholastic skills, unspecified Plan Patient is a 30-year-old female with history of MDD and intellectual delay, who presented to [facility] via EMS due to making suicidal statements secondary to getting into an argument with her longterm staff. 03/01/25: Good appetite slept for 8 hours, attended to groups, and was medication compliant, cooperative but appears anxious and irritable toward the roommate who left this morning even after the roommate already discharge. She scratched her left hand due to increased anxiety. Hyper focused on not returning to longterm as most of staff were disrespectful . Deny SI/HI/AVH. SIBx1. Redirectable. Review medication p.r.n. for anxiety, increase hydroxyzine p.r.n. up to 50 mg from 25 mg. 03/02 continue tx. 03/04: Active on unit. social with peers. attending groups. Patient reports feeling better today; observed on phone multiple times throughout the day. denies SI/HI/VH/AH. Plan to return to longterm on Tuesday; pt aware; pt focused on discussing being switching to a different home with her DDS worker. Continue current tx plan. 03/05: Patient reports feeling good ; denies any issues at this time. denies SI/HI/VH/AH. focused on returning home. Pt reports she plans on following up with her outpatient providers. Patient educated on: diagnosis and medication risk/benefits Reason for continued inpatient stay Substantial Risk for: stable for discharge Time Spent With Patient Time: Total time managing care of this patient today _20___ minutes.
[2025-03-05 21:46] VITALS: BP 118/69; PULSE 75; RESP 16; TEMP 36.7; O2SAT 99
[2025-03-06 07:39] VITALS: BP 107/54; PULSE 75; RESP 17; TEMP 2.7; TEMP 36.9; O2SAT 98
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
== END 2025-03-06 11:59 | disposition home or self-care (01) | DRG 885 ==
LOC: HO.ED 22:29 → HO.PADLT16 02-28 12:09
PROVIDERS: Admitting Provider Registered Nurse; Emergency Provider Emergency Medicine; Responsible Provider Registered Nurse; Visit Provider Psychiatry & Neurology Psychiatry
DX: F33.9 Major depressive disorder, recurrent, unspecified (principal); F81.9 Developmental disorder of scholastic skills, unspecified; Z87.891 Personal history of nicotine dependence; Z79.899 Other long term (current) drug therapy
CPT/HCPCS: 36415; 80048; 80076; 80307; 81001; 81025; 85025; 87086; 93005; 99285; S9485

== ENCOUNTER → 2025-02-27 10:28 | Outpatient (BNV) | payer MEDICARE, MEDICAID, SELFPAY | PROVIDERS: Emergency Provider Emergency Medicine; Visit Provider Internal Medicine | DX: Z13.6 Encounter for screening for cardiovascular disorders (principal) | CPT/HCPCS: 93010 ==

== ENCOUNTER → 2025-02-28 11:59 | Outpatient (BNV) | payer MEDICARE, MEDICAID, SELFPAY | PROVIDERS: Admitting Provider Registered Nurse; Emergency Provider Emergency Medicine; Responsible Provider Registered Nurse; Visit Provider Registered Nurse | DX: F33.2 Major depressive disorder, recurrent severe without psychotic features (principal); F81.9 Developmental disorder of scholastic skills, unspecified | CPT/HCPCS: 90792; 99232 ==

== ENCOUNTER 2025-03-07 16:47 | Emergency (ER) | payer MEDICARE, MEDICAID, SELFPAY ==
[2025-03-07 16:51] VITALS: BP 118/70; PULSE 70; O2SAT 99
[2025-03-07 16:52] VITALS: BP 113/70; PULSE 103; RESP 18; TEMP 36.9; O2SAT 98; BMI 27.0
--- NOTE | 2025-03-07 17:38 | ED.ANXIETY ---
HPI - Anxiety General Chief Complaint: Anxiety Stated Complaint: ANXIETY Time Seen by Provider: 03/07/25 17:14 Source: patient, EMS, RN notes reviewed and old records reviewed Mode of arrival: EMS Limitations: other (intellectual delay) History of Present Illness ED Provider: Prosper HPI narrative: Patient is a 30-year-old female with history of intellectual delay, major depressive disorder presenting to the emergency department from [facility] with complaint of anxiety and anger. States that she was discharged from the inpatient psychiatric unit yesterday and since returning to her [facility] has been feeling agitated by her roommate as well as staff there. She states that her roommate is ?telling on me. ? Repeatedly stating that she is full of rage, due to not getting along with her roomates and staff. She is specifically requesting inpatient admission again, stating I need another break. Denies suicidal or homicidal ideation, auditory or visual hallucinations. Denies any physical complaints. MD complaint: anxiety and other (agitation) Related Data Home Medications ?Medication ?Instructions ?Recorded ?Confirmed clonidine HCl 0.2 mg tablet 1 tab PO BEDTIME 10/14/21 03/07/25 lamotrigine 200 mg tablet 1 tab PO BID 10/14/21 03/07/25 (Lamictal) cholecalciferol (vitamin D3) 50 50 mcg PO DAILY 01/30/25 02/26/25 mcg (2,000 unit) tablet (Vitamin D3) clonidine HCl 0.1 mg tablet 0.1 mg PO DAILY PRN Anxiety 01/30/25 03/07/25 levonorgestrel-ethinyl estradiol 1 tab PO DAILY 01/30/25 03/07/25 0.1 mg-20 mcg tablet (Vienva) trazodone 50 mg tablet 50 mg PO BEDTIME 01/30/25 02/26/25 fluoxetine 20 mg capsule 10 mg PO DAILY 02/17/25 03/07/25 olanzapine 20 mg tablet 10 mg PO BID 02/17/25 03/07/25 bismuth subsalicylate 262 mg/15 mL 262 mg PO Q6H PRN Indigestion 02/27/25 02/27/25 oral suspension cetyl and stearate 1 appl topical NEEDED PRN Dry 02/27/25 02/27/25 alcohol-propylen glycol-sls Skin topical cream (Cetaphil topical cream) dextromethorphan-guaifenesin 10 5 ml PO Q6H PRN Cough 02/27/25 02/27/25 mg-100 mg/5 mL oral syrup ibuprofen 400 mg tablet 400 mg PO Q8H PRN Pain/Fever 02/27/25 02/27/25 mineral oil-hydrophil petrolat 1 appl topical Q12H PRN 02/27/25 02/27/25 topical ointment Scabs/Healing Wounds acetylcysteine 600 mg capsule 600 mg PO BID 03/07/25 03/07/25 trazodone 50 mg tablet 50 mg PO BEDTIME 03/07/25 03/07/25 Allergies Allergy/AdvReac Type Severity Reaction Status Date / Time diphenhydramine (From Allergy Unknown UNKNOWN Verified 03/07/25 16:59 BENADRYL) medroxyprogesterone (From Allergy Unknown UNKNOWN Verified 03/07/25 16:59 DEPO-PROVERA) lactose Allergy Unknown Verified 03/07/25 16:59 Review of Systems Review of Systems: As per hPI Yes all other systems are reviewed and are negative Constitutional: Constitutional: Reports as per HPI [facility] Past Medical History Medical History Major depression Mood disorder Social History Social History Household Members: Other Household Members Other:: Snf Housing: House Do you presently have visiting nurse or other home services: No Alcohol intake: never Patient Tobacco Use Status: Former Tobacco user Second Hand Smoke Exposure: No Advance Directives: No Advance Directives Information Provided: No service: No Sexual orientation: Straight/Heterosexual Physical Exam Vital Signs: Vital Signs: Last Vital Signs Temp 98.4 F 03/08/25 09:00 Pulse 80 03/08/25 09:00 Resp 16 03/08/25 09:00 BP 108/60 03/08/25 09:00 Pulse Ox 98 03/08/25 09:00 O2 Del Method Room Air 03/08/25 09:00 BMI result Body Mass Index 27.0 Vital signs have been reviewed and appear to be correct. Blood pressure normal. Heart rate slightly tachycardic, likely due to anxiety/agitation. Respiratory rate normal. Temperature normal. Oxygen saturation normal. Const: General: cooperative and no acute distress Orientation/consciousness: oriented to person, oriented to place, oriented to time and patient oriented x3 Limitations: other limitations (Intellectual delay) HEENT: Head: Yes normocephalic and Yes atraumatic Ears: external ears normal General nose exam: Normal external nose present Face and sinus: Yes face symmetric Mouth: oropharynx normal and moist mucous membranes Throat: Yes uvula midline Eyes: Pupils: Equal, round and reactive pupils present Neck: Neck: Yes normal visual inspection and Yes supple Resp: Effort & Inspection: normal respiratory effort and able to speak in complete sentences Auscultation: clear to auscultation bilaterally Cardio: Rate: regular rate Rhythm: regular rhythm Heart sounds: S1 normal heart sound present and S2 normal heart sound present GI: Palpation (GI): Soft to palpation and nontender Auscultation: normoactive bowel sounds : General: Yes no CVA tenderness Back/Spine/Pelvis: Back: no CVA tenderness Skin: General skin exam: elasticity normal and turgor normal Neuro: General: oriented to person, oriented to place, oriented to time, patient oriented x3, moves all extremities, no focal motor deficits and CN's II-XI intact bilaterally Cranial nerves: Yes Equal, round and reactive pupils present Cognition (Neuro): normal cognition Extrem: General: Yes full ROM, Yes no pedal edema and Yes no calf tenderness Psych: Appearance: grossly normal Affect: Anxious affect present and Irritable affect present Attitude: cooperative Thought content: suicidality, no homicidality and no hallucinations Insight: Limited insight present (Psych) Judgement: Limited judgement present (Psych) Course Course Course Narrative: 9:15 PM 03/07/2025 (Lissett MANTILLA): Patient is signed out to this provider at shift change, in summary the patient is a 30-year-old female presenting to the ED from her [facility] for increasing anxiety due to argument with roommates and staff at the [facility]. Patient was just recently discharged from inpatient psychiatry and returned to the [facility], returns today reporting increased anxiety from her living situation. The patient denies suicidal or homicidal ideation, no auditory or visual hallucinations reported. At time of sign-out patient is pending laboratory evaluation for medical clearance for crisis team consultation. At this time the patient's laboratory evaluation has resulted and patient is medically cleared for crisis team evaluation and management. 03/08/2025 1604 Verónica Arroyo PA-C ---> Patient cleared to go to respite. Discharge placed. Medications Administered Generic Name Dose Route Start Last Admin Trade Name Henok PRBal Reason Stop Dose Admin Clonidine HCl 0.2 mg 03/07/25 22:15 03/07/25 23:07 Clonidine Hcl 0.2 Mg Tablet PO 0.2 mg BEDTIME KACEY Administration Protocol Fluoxetine HCl 10 mg 03/08/25 09:00 03/08/25 09:32 Fluoxetine Hcl 10 Mg Capsule PO 10 mg DAILY KACEY Administration Lamotrigine 200 mg 03/07/25 22:20 03/08/25 09:32 Lamotrigine 100 Mg Tablet PO 200 mg BID KACEY Administration Olanzapine 10 mg 03/07/25 22:20 03/08/25 09:32 Olanzapine 10 Mg Tablet PO 10 mg BID KACEY Administration Trazodone HCl 50 mg 03/07/25 22:15 03/07/25 23:06 Trazodone Hcl 50 Mg Tablet PO 50 mg BEDTIME KACEY Administration Medical Decision Making Medical Decision Making [facility] Narrative: Patient is a 30-year-old female with history of intellectual delay, major depressive disorder presenting to the emergency department from [facility] with complaint of anxiety and anger. On exam patient is awake, A+Ox3, VS WNL, afebrile, normal neurological exam without focal deficits, physical exam findings as above. Given reported symptoms and physical exam findings, initial differential includes but is not limited to anxiety, depression, agitation. Plan for medical clearance and care team evaluation. Patient denies any physical complaints. Patient signed out to ANNALEE Quick pending medical clearance for CARE team evaluation. Patient evaluated by care team feel comfortable with discharge felt patient's symptoms consistent with anxiety. Not suicidal not homicidal will discharge. Going to a rehab facility. Differential Diagnosis Differential Diagnoses: The differential diagnosis associated with the presentation includes as per MDM Admission/Observation Consideration of admission/observation: Escalation of care including admission/observation considered Patient would have been admitted to the hospital had their work up had any findings where hospital admission was appropriate and their clinical presentation warranted hospital admission. Consult Healthcare Provider Management of the patient was discussed with: Behavioral Health Provider Lab Data 03/07/25 20:20 03/07/25 20:20 Labs: Lab Results 03/07/25 03/07/25 Range/Units 20:20 21:02 WBC 7.9 (4.8-10.8) X10*3/uL RBC 4.16 L (4.20-5.50) X10*6/uL Hgb 12.4 (12.0-16.0) g/dl Hct 36.0 L (37.0-47.0) % MCV 86.5 (80.0-98.0) fL MCH 29.8 (27.0-33.0) pg MCHC 34.4 (31.0-35.0) g/dl RDW 11.5 (11.0-16.0) % Plt Count 227 (160-400) X10*3/uL MPV 8.3 L (9.4-12.3) fL Immature Gran % (Auto) 0.4 (0.0-0.4) % Neut % (Auto) 61.6 (45-73) % Lymph % (Auto) 29.8 (20-40) % [place] % (Auto) 7.9 (2-11) % Eos % (Auto) 0.0 (0-4) % Baso % (Auto) 0.3 (0-2) % Lymph # (Auto) 2.4 (1.2-4.9) X10*3/uL [place] # (Auto) 0.6 (0.1-1.2) X10*3/uL Eos # (Auto) 0.0 (0.0-0.4) X10*3/uL Baso # (Auto) 0.0 (0.0-0.2) X10*3/uL Abs Immat Gran (auto) 0.03 (0.00-0.03) X10*3/uL Absolute Neuts (auto) 4.9 (2.0-8.3) x10*3/uL Absolute Nucleated RBC 0.000 (0.0-0.012) X10*3/uL Nucleated RBC % (auto) 0.0 (0.0-0.2) /100WBC Sodium 140 (135-145) mmol/L Potassium 3.7 (3.3-5.1) mmol/L Chloride 106 (96-108) mmol/L Carbon Dioxide 27 (22-29) mmol/L Anion Gap 11 L (12-20) BUN 15 (9-16) mg/dL Creatinine 0.77 (0.5-1.4) mg/dL Estim Creat Clear Calc 127.9 Estimated GFR > 60 Random Glucose 85 (60-115) mg/dL Calcium 9.2 (8.4-10.2) mg/dL Total Bilirubin 0.2 (0.0-1.0) mg/dL AST 14 (5-31) U/L ALT 10 (0-31) U/L Alkaline Phosphatase 58 (39-117) U/L Total Protein 7.1 (6.5-8.0) g/dL Albumin 4.2 (3.5-5.0) g/dL Beta HCG, Quant < 2 mIU/mL Urine Color Yellow Urine Appearance Cloudy Urine pH 6.5 (5.0-9.0) Ur Specific [place] 1.015 (1.005-1.025) Urine Protein Negative (Neg-Trace) mg/dL Urine Glucose (UA) Negative (Negative) mg/dL Urine Ketones Negative (Negative) mg/dL Urine Blood Negative (Negative) Urine Nitrite Negative (Negative) Ur Leukocyte Esterase Negative (Negative) Urine Opiates Screen Not Detected (Not Detect) Ur Buprenorphine Scrn Not Detected (Not Detect) ng/mL Ur Oxycodone Screen Not Detected (Not Detect) ng/mL Urine Methadone Screen Not Detected (Not Detect) ng/mL Urine Fentanyl Screen Not Detected (Not Detect) Ur Barbiturates Screen Not Detected (Not Detect) Ur Phencyclidine Scrn Not Detected (Not Detect) Ur Amphetamines Screen Not Detected (Not Detect) U Benzodiazepines Scrn Not Detected (Not Detect) Urine Cocaine Screen Not Detected (Not Detect) U Marijuana (THC) Screen Not Detected (Not Detect) Ethyl Alcohol 10 mg/dL Influenza Type A (PCR) NEGATIVE (Negative) Influenza Type B (PCR) NEGATIVE (Negative) RSV RNA Qual (PCR) NEGATIVE (Negative) SARS-CoV-2 RNA (RT-PCR) NEGATIVE (Negative) External Record Review External record reviewed: Inpatient record, Office record and Outpatient record Discharge Plan Discharge Clinical Impression: Acute anxiety Instructions: Anxiety (ED) Additional Instructions: You were seen in our Emergency Department today for a concern regarding your mental / behavioral behavioral health. It is important after this visit today that you follow up with either your mental / behavioral health or primary care provider within 7 days (from today).? Return for any worsening symptoms or concerns such as thoughts of harming yourself or others. Please call 911 immediately if you feel your mental health is worsening.? National Suicide and Crisis Lifeline: Available 24 hours a day, 7 days a week, 365 days a year Dial 988 with any telephone to speak to someone immediately [facility] (Mental / Behavioral health therapist: [address] [place] [address] [facility] at [facility]: [address] [place] [address] Open from 10am - 12pm (walk ins welcome) [facility] Crisis Services: [address] [place] [address] Walk in hours from 10am - 12pm Behavioral health Network: [address] [place] [address] [phone] AND [address] [place] [address] [phone] Tuesday through Tuesday 8am - 8pm Tuesday and Tuesday 9am - 5pm Prescriptions: No Action lamotrigine [Lamictal] 200 mg tablet 1 tab PO BID clonidine HCl 0.2 mg tablet 1 tab PO BEDTIME trazodone 50 mg Tablet 50 mg PO BEDTIME cholecalciferol (vitamin D3) [Vitamin D3] 50 mcg (2,000 unit) Tablet 50 mcg PO DAILY clonidine HCl 0.1 mg Tablet 0.1 mg PO DAILY PRN (Reason: Anxiety) levonorgestrel-ethinyl estrad [Vienva] 0.1-20 mg-mcg Tablet 1 tab PO DAILY trazodone 50 mg tablet 50 mg PO BEDTIME acetylcysteine 600 mg Capsule 600 mg PO BID fluoxetine 20 mg capsule 10 mg PO DAILY olanzapine 20 mg tablet 10 mg PO BID mineral oil-hydrophil petrolat Ointment 1 appl TOPICAL Q12H PRN (Reason: Scabs/Healing Wounds) bismuth subsalicylate 262 mg/15 mL Suspension 262 mg PO Q6H PRN (Reason: Indigestion) ibuprofen 400 mg Tablet 400 mg PO Q8H PRN (Reason: Pain/Fever) Cetaphil Cream 1 appl TOPICAL NEEDED PRN (Reason: Dry Skin) dextromethorphan-guaifenesin 10-100 mg/5 mL Syrup 5 ml PO Q6H PRN (Reason: Cough) Print Language: Maldivian
[2025-03-07 20:28] LABS: MANUAL DIFF FLAG NO
[2025-03-07 20:29] LABS: Hematocrit 36.0 % (37.0-47.0); Hemoglobin 12.4 g/dl (12.0-16.0); Imm Gran Abs Auto 0.03 X10*3/uL (0.00-0.03); Imm Gran Pct Auto 0.4 % (0.0-0.4); Lymphocytes Absolute Auto 2.4 X10*3/uL (1.2-4.9); Mean Corpuscular HGB Conc 34.4 g/dl (31.0-35.0); Mean Corpuscular Hemoglobin 29.8 pg (27.0-33.0); Mean Corpuscular Volume 86.5 fL (80.0-98.0); NRBC Abs Auto 0.000 X10*3/uL (0.0-0.012); NRBC Pct Auto 0.0 /100WBC (0.0-0.2); Platelet Count 227 X10*3/uL (160-400); Red Blood Count 4.16 X10*6/uL (4.20-5.50); White Blood Count 7.9 X10*3/uL (4.8-10.8)
[2025-03-07 20:50] LABS: Alanine Aminotransferase 10 U/L (0-31); Albumin Level 4.2 g/dL (3.5-5.0); Alkaline Phosphatase 58 U/L (39-117); Anion Gap 11 (12-20); Aspartate Amino Transferase 14 U/L (5-31); Blood Urea Nitrogen 15 mg/dL (9-16); Calcium 9.2 mg/dL (8.4-10.2); Carbon Dioxide 27 mmol/L (22-29); Chloride 106 mmol/L (96-108); Creatinine Clr Calc Pharmacy 127.9; Estimated Glomerular Filt Rate > 60; Potassium 3.7 mmol/L (3.3-5.1); Sodium 140 mmol/L (135-145); Total Protein 7.1 g/dL (6.5-8.0)
[2025-03-07 20:56] VITALS: BP 116/67; PULSE 74; RESP 15; TEMP 36.8; O2SAT 97
[2025-03-07 21:08] LABS: Resp Syncy Virus RNA Qual PCR NEGATIVE (Negative); SARS COV2 PCR INHOUSE NEGATIVE (Negative)
[2025-03-07 21:13] LABS: Appearance Urine Cloudy; Glucose Urine UA Negative (Negative); PH 6.5 (5.0-9.0); Specific Gravity - Urine 1.015 (1.005-1.025)
--- NOTE | 2025-03-07 22:30 | PC.NURSE ---
Patient transferred from ED 8 Rose to Pod bed 3 at 22:31. Nurse to nurse report received from Sadi ED RN.
[2025-03-07 22:51] LABS: Cannabinoid Screen Urine Not Detected (Not Detect)
[2025-03-07 23:07] VITALS: BP 103/59
[2025-03-07 23:12] VITALS: BP 103/59; PULSE 78; RESP 16; TEMP 36.9; O2SAT 97
--- NOTE | 2025-03-07 23:35 | PC.NURSE ---
Took over care from RN Katalina, pt medicated by prior nurse, warm blanket given, pt sleeping at this time, no sign of distress.
--- NOTE | 2025-03-08 02:04 | PC.NURSE ---
pt sleeping at this time.
--- NOTE | 2025-03-08 05:44 | PC.NURSE ---
pt is sleeping at this time.
--- NOTE | 2025-03-08 07:30 | PC.NURSE ---
Report received and patient sleeping soundly in BH3. Chest rise noted. NAD.
--- NOTE | 2025-03-08 08:39 | PC.NURSE ---
Pt is awake, OOB with steady gait to BR. Fully clothed, calm, talking on public phone. NAD.
--- NOTE | 2025-03-08 08:58 | MHC.CARE ---
Spoke with Rinku ROJAS. They have patient's referral and they will begin reviewing it.
[2025-03-08 09:00] VITALS: BP 108/60; PULSE 80; RESP 16; TEMP 36.9; O2SAT 98
--- NOTE | 2025-03-08 09:35 | PC.NURSE ---
Pt has more or less been on the public phone since waking. Needs support to navigate sharing this public phone.
--- NOTE | 2025-03-08 11:11 | MHC.CARE ---
Patient accepted to [facility] Adult [facility] for today, 03/08/2025 at 1630. Admission approved by Ting [phone] Address Jed Solis [place] [phone] Patient can go via Lyft Manjula Powell is covering for manager sustainability Natty today and will have staff bring patients medication to [facility]. Manjula also aware that patient is requesting shampoo/ conditioner, cocoa butter lotion/ soap, a razor, hairbrush, hair elastics, deodorant spray, toothpaste/toothbrush, a stuffed animal (white rabbit) and blanket. She shares that should staff be unable to facilitate this, she will do so.
--- NOTE | 2025-03-08 15:05 | PC.NURSE ---
Pt continues to sleep.
[2025-03-08 16:07] VITALS: BP 108/60; PULSE 80; RESP 16; TEMP 36.9; O2SAT 98
== END 2025-03-08 16:18 ==
PROVIDERS: Registered Nurse Emergency; Emergency Provider Emergency Medicine
DX: F41.9 Anxiety disorder, unspecified (principal); R45.1 Restlessness and agitation; Z03.818 Encounter for observation for suspected exposure to other biological agents ruled out; F32.9 Major depressive disorder, single episode, unspecified; F81.9 Developmental disorder of scholastic skills, unspecified; Z87.891 Personal history of nicotine dependence
CPT/HCPCS: 36415; 80053; 80307; 81003; 84702; 85025; 87637; 99284; 99285; S9485

== ENCOUNTER 2025-03-14 21:17 | Emergency (ER) | payer MEDICARE, MEDICAID, SELFPAY ==
[2025-03-14 21:37] VITALS: BP 138/88; PULSE 110; O2SAT 98
[2025-03-14 21:39] VITALS: BP 126/76; PULSE 110; RESP 20; TEMP 36.7; O2SAT 98; BMI 25.3
--- NOTE | 2025-03-14 23:32 | PC.NURSE ---
took over care from LEFTY Jordan, pt was manager exchange, pt placed in room 1, warm blanket given.
--- NOTE | 2025-03-14 23:34 | MHC.EDTECH ---
PT REQUESTING LAB DRAW TO BE DONE IN THE MORNING. RN AWARE
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
--- NOTE | 2025-03-15 03:36 | PC.NURSE ---
pt given warm blanket .
--- NOTE | 2025-03-15 05:35 | PC.NURSE ---
pt is sleeping.
[2025-03-15 06:17] VITALS: BP 105/57; PULSE 84; RESP 18; TEMP 36.6; O2SAT 98
--- NOTE | 2025-03-15 06:22 | MHC.EDTECH ---
t/w was able to obtain VS, pt continues to refuse blood draw. stated i'll wait till after breakfast. rn aware
--- NOTE | 2025-03-15 07:00 | PC.NURSE ---
Assumed care of patient at 0645, patient appears to be in no apparent distress this am, sleeping, respirations even and unlabored. Continue plan of care for CARE team frieda
--- NOTE | 2025-03-15 10:12 | PC.NURSE ---
pt intrusive into another pts phone call, asking for them to get off the phone so she can call her boyfriend. Pt verbally redirected and educated on maintaining boundaries and not to interrupt others phone calls. After the other patient was done on the phone pt called her bf and then let staff know My boyfriend will be coming to visit, I am excited that he can visit me in the bedroom and have time alone together in the bedroom, but don't worry, we will be appropriate . this RN and ED techs educated patient on need for appropriate behavior to have guest stay
--- NOTE | 2025-03-15 11:02 | MHC.CARE ---
Addendum entered by Catalina Lazaro [facility] 03/15/25 11:17: T/w spoke with patient's DDS worker Lin, cell/ [phone] office Lin reports that DDS just met with patient the other day, Tuesday, and they came up with an agreement wherein she remains safe/ respectful and they in turn agree to consider her requests, which are alone time in the community as well as her own cell phone. T/w shared with Lin the degree to which patient is on the community free phone while in the behavioral pod, and today, requests a visit from her BF. Lin shares her hesitancy/ reluctance to going full steam ahead on a new half-way given that 1. patient has been there for ten years and overall, largely done well and b. concern that the lesson/ or message patient will get if she were to be moved to a new half-way following this spate of admissions/ threats to harm self etc. They prefer that she attempt some sort of reconciliation and movement forward within the half-way and continuing to work toward her goals of increased independence. Ultimately however a discussion with [facility] / half-way staff is warranted as they manage the house. Original Note: [facility] for Natty Whit [phone], programming engineer for her DDS housing through [employer] requesting call back to discuss frequency of patient's ED presentations/ admissions and t/w questioning the longer term plan for patient re: housing. Also, though not left on the VM, seeking to inquire why mobile crisis is not being utilized at the half-way.
[2025-03-15 13:45] VITALS: BP 131/70; PULSE 91; RESP 19; TEMP 36.5; O2SAT 98
== END 2025-03-15 13:49 | disposition home or self-care (01) ==
PROVIDERS: Emergency Provider Emergency Medicine Emergency Medical Services
DX: F33.8 Other recurrent depressive disorders (principal); R10.30 Lower abdominal pain, unspecified
CPT/HCPCS: 99284; S9485

== ENCOUNTER 2025-03-23 10:33 | Emergency (ER) | payer MEDICARE, MEDICAID, SELFPAY ==
--- NOTE | 2025-03-23 10:39 | ED.GENADULT ---
HPI - General Adult General Chief complaint: Psychiatric Symptoms Stated complaint: ANXIETY Time Seen by Provider: 03/23/25 10:38 Source: patient and EMS Mode of arrival: EMS Limitations: no limitations History of Present Illness ED Provider: Verónica Arroyo PA-C HPI narrative: Patient is a 30 year old assigned female at with a history of MDD and intellectual delay presenting to the emergency department today with suicidal ideation. Patient states that she feels unsafe in her assisted because of her roommate and wants to kill herself. Patient denies any dizziness, lightheadedness, abdominal pain, nausea, vomiting, fever, chills, blurry vision, double vision, loss of vision, chest pain, difficulty breathing, shortness of breath, back pain, night sweats, pain with urination, increased urinary frequency, increased urinary urgency, blood in her urine or stool, syncope or a near syncopal episode, bowel incontinence, bladder incontinence, or any other complaints at this time. Relieving factors: none Exacerbating factors: none Associated symptoms: denies other symptoms Treatments prior to arrival: none Related Data Home Medications ?Medication ?Instructions ?Recorded ?Confirmed clonidine HCl 0.2 mg tablet 1 tab PO BEDTIME 10/14/21 03/15/25 lamotrigine 200 mg tablet 1 tab PO BID 10/14/21 03/15/25 (Lamictal) cholecalciferol (vitamin D3) 50 50 mcg PO DAILY 01/30/25 02/26/25 mcg (2,000 unit) tablet (Vitamin D3) clonidine HCl 0.1 mg tablet 0.1 mg PO DAILY PRN Anxiety 01/30/25 03/07/25 levonorgestrel-ethinyl estradiol 1 tab PO DAILY 01/30/25 03/07/25 0.1 mg-20 mcg tablet (Vienva) trazodone 50 mg tablet 50 mg PO BEDTIME 01/30/25 02/26/25 fluoxetine 20 mg capsule 10 mg PO DAILY 02/17/25 03/15/25 olanzapine 20 mg tablet 10 mg PO BID 02/17/25 03/15/25 bismuth subsalicylate 262 mg/15 mL 262 mg PO Q6H PRN Indigestion 02/27/25 02/27/25 oral suspension cetyl and stearate 1 appl topical NEEDED PRN Dry 02/27/25 02/27/25 alcohol-propylen glycol-sls Skin topical cream (Cetaphil topical cream) dextromethorphan-guaifenesin 10 5 ml PO Q6H PRN Cough 02/27/25 02/27/25 mg-100 mg/5 mL oral syrup ibuprofen 400 mg tablet 400 mg PO Q8H PRN Pain/Fever 02/27/25 02/27/25 mineral oil-hydrophil petrolat 1 appl topical Q12H PRN 02/27/25 02/27/25 topical ointment Scabs/Healing Wounds acetylcysteine 600 mg capsule 600 mg PO BID 03/07/25 03/07/25 trazodone 50 mg tablet 50 mg PO BEDTIME 03/07/25 03/15/25 Allergies Allergy/AdvReac Type Severity Reaction Status Date / Time diphenhydramine (From Allergy Unknown UNKNOWN Verified 03/23/25 10:48 BENADRYL) medroxyprogesterone (From Allergy Unknown UNKNOWN Verified 03/23/25 10:48 DEPO-PROVERA) lactose Allergy Unknown Verified 03/23/25 10:48 Review of Systems Constitutional: Constitutional: Reports no additional constitutional complaints, Denies chills, Denies fever(s) and Denies night sweats Eyes: Eyes: Reports no additional eye complaints, Denies blurry vision, Denies change in vision, Denies diplopia, Denies eye discharge, Denies loss of vision and Denies eye pain ENT: Denies dizziness Cardiovascular: Cardiovascular: Reports no additional cardiovascular complaints, Denies chest pain, Denies lightheadedness, Denies Loss of Consciousness and Denies dyspnea Respiratory: Respiratory: Reports no additional respiratory complaints and Denies dyspnea Gastrointestinal: Gastrointestinal: Reports no additional gastrointestinal complaints, Denies abdominal pain, Denies melena, Denies hematochezia, Denies change in bowel habits and Denies change in stool character Genitourinary: Genitourinary: Denies hematuria, Denies urinary frequency, Denies dysuria, Denies urinary incontinence, Denies urinary hesitancy and Denies urinary urgency Musculoskeletal: Musculoskeletal: Reports no additional musculoskeletal complaints, Denies numbness and Denies tingling Neurologic: Denies dizziness, Denies loss of vision, Denies numbness and Denies tingling Psychiatric: Psychiatric: Reports depression and Reports suicidal ideation Endocrine: Endocrine: Reports no additional endocrine complaints Hematologic/Lymphatic: Hematologic/Lymphatic: Reports no additional hematologic/lymphatic complaints Allergic/Immunologic: Allergic/Immunologic: Reports no additional allergic/immunologic complaints [facility] Past Medical History Attestation statement: The following information was validated with the patient. Source: old records reviewed and nursing notes reviewed Medical History Suicidal ideation Major depression Mood disorder Social History Social History Household Members: Other Household Members Other:: Jail Housing: House Do you presently have visiting nurse or other home services: No Alcohol intake: never Patient Tobacco Use Status: Former Tobacco user Smoked in Last 30 Days: No Second Hand Smoke Exposure: No Use of substances other than those prescribed or required for medical reasons: No Advance Directives: No Advance Directives Information Provided: No Do you have a plan to hurt others: Vague service: No Sexual orientation: Straight/Heterosexual Physical Exam ED Vital Signs: Vital Signs - 24 hr 03/23/25 10:45 Temperature 98.5 F Pulse Rate 89 Respiratory Rate 16 Blood Pressure 112/64 Pulse Oximetry 98 Oxygen Delivery Method Room Air BMI result Body Mass Index 24.4 Const General: cooperative, no acute distress, alert and awake Nutritional Appearance: well nourished Orientation/consciousness: patient oriented x3 HENMT Head: Yes normal to inspection and Yes atraumatic Ears: hearing grossly normal bilaterally and external ears normal General nose exam: Normal external nose present, no nasal discharge noted and no epistaxis Face and sinus: Yes normal facial exam, No abrasion and No laceration Mouth: Normal oral and palatal mucosa present, no drooling and no muffled voice Eyes General: appearance normal, both eyes and all related structures Periorbital: periorbital findings normal Eyelids: Yes eyelids normal Conjunctivae: conjunctivae normal Pupils: Equal, round and reactive pupils present EOM: EOMs intact bilaterally Neck Neck: Yes normal visual inspection, Yes full ROM and Yes no lymphadenopathy Resp Effort & Inspection: normal respiratory effort and able to speak in complete sentences Neuro General: patient oriented x3, moves all extremities and CN's II-XI intact bilaterally Cranial nerves: Yes Equal, round and reactive pupils present Cognition (Neuro): normal cognition Extrem General: Yes normal to inspection, Yes full ROM and Yes capillary refill normal Psych Appearance: grossly normal Mental Status: mental status grossly normal Affect: normal affect Attitude: cooperative Thought content: Suicidality present Course Reevaluation(s) Reevaluation #1: VSS, patient is calm now and redirectable, agreed to go back to the assisted, care team input is appreciated will arrange for transported back to the assisted, patient is not happy going back to the assisted want to go to somewhere else or respite, no SI, no HI, discontinue physician observation now. Time: 17:00 Medical Decision Making Medical Decision Making [facility] Narrative: Patient is a 30 year old assigned female at with a history of MDD and intellectual delay presenting to the emergency department today with suicidal ideation. Patient's physical exam was unremarkable. Patient's blood work was unremarkable. Patient was evaluated by the CARE team who recommended discharge back to her assisted stating the patient has been using hospital visits as a means of secondary gain because she does not like her assisted. I explained my physical exam findings as well as all test results to the patient. I answered all questions asked by the patient. I stressed the importance of the patient taking her medication as directed (either prescribed or as the over the counter packaging recommends). I stressed the importance of the patient following up with her primary care provider. I stressed the importance of the patient returning to the emergency department immediately if her symptoms were to worsen or if she were to develop any dizziness, shortness of breath, difficulty breathing, chest pain, blurry vision, loss of vision, nausea, vomiting, abdominal pain, fever, chills, back pain, or any other complaints. Patient verbalized agreement and understanding with this treatment plan and discharge. Differential Diagnosis Differential Diagnoses: The differential diagnosis associated with the presentation includes Depression SI Hospital visit for secondary gain Anxiety about living situation Admission/Observation Consideration of admission/observation: Escalation of care including admission/observation considered Patient would have been admitted to the hospital had her work up had any findings where hospital admission was appropriate and her clinical presentation warranted hospital admission. Consult Healthcare Provider Management of the patient was discussed with: Behavioral Health Provider (spoke with the CARE Team as noted in the MDM Rationale portion of this note. ) Lab Data [facility] Lab Attestation statement: I reviewed the patient's lab results. My interpretation of these results are in the MDM Rationale portion of this note. 03/23/25 10:55 03/23/25 10:55 Labs: Lab Results 03/23/25 Range/Units 10:55 WBC 5.3 (4.8-10.8) X10*3/uL RBC 4.37 (4.20-5.50) X10*6/uL Hgb 13.1 (12.0-16.0) g/dl Hct 37.7 (37.0-47.0) % MCV 86.3 (80.0-98.0) fL MCH 30.0 (27.0-33.0) pg MCHC 34.7 (31.0-35.0) g/dl RDW 11.6 (11.0-16.0) % Plt Count 228 (160-400) X10*3/uL MPV 8.6 L (9.4-12.3) fL Immature Gran % (Auto) 0.4 (0.0-0.4) % Neut % (Auto) 55.2 (45-73) % Lymph % (Auto) 35.5 (20-40) % Blanco % (Auto) 6.6 (2-11) % Eos % (Auto) 1.7 (0-4) % Baso % (Auto) 0.6 (0-2) % Lymph # (Auto) 1.9 (1.2-4.9) X10*3/uL Blanco # (Auto) 0.4 (0.1-1.2) X10*3/uL Eos # (Auto) 0.1 (0.0-0.4) X10*3/uL Baso # (Auto) 0.0 (0.0-0.2) X10*3/uL Abs Immat Gran (auto) 0.02 (0.00-0.03) X10*3/uL Absolute Neuts (auto) 2.9 (2.0-8.3) x10*3/uL Absolute Nucleated RBC 0.000 (0.0-0.012) X10*3/uL Nucleated RBC % (auto) 0.0 (0.0-0.2) /100WBC Sodium 143 (135-145) mmol/L Potassium 3.8 (3.3-5.1) mmol/L Chloride 110 H (96-108) mmol/L Carbon Dioxide 26 (22-29) mmol/L Anion Gap 11 L (12-20) BUN 8 L (9-16) mg/dL Creatinine 0.88 (0.5-1.4) mg/dL Estim Creat Clear Calc 102.0 Estimated GFR > 60 Random Glucose 96 (60-115) mg/dL Calcium 9.4 (8.4-10.2) mg/dL Total Bilirubin 0.3 (0.0-1.0) mg/dL AST 19 (5-31) U/L ALT 32 H (0-31) U/L Alkaline Phosphatase 60 (39-117) U/L Total Protein 7.6 (6.5-8.0) g/dL Albumin 4.6 (3.5-5.0) g/dL Salicylates < 5.0 L (15-30) mg/dL Acetaminophen < 3 (<30) mcg/mL Ethyl Alcohol < 10 mg/dL COVID-19 (SHIVANI) Negative (Negative) COVID-19 Clin Com See Note Independent Historian Clinical information obtained from an independent historian. History obtained from or confirmed by: EMS (EMS provided additional history and confirmed the history provided by the patient. ) Critical Care Time Critical Care Time Critical Care Time: Yes Total Critical Care Time: 32 Attestation: I spent 32 minutes of Critical Care Time with this patient. This does not include time spent on separately reported billable procedures. Discharge Plan Discharge Clinical Impression: Anxiety Patient Disposition: Xfer Other Transfer Details: Back to intermediate Instructions: Anxiety (ED) Additional Instructions: Follow up with your primary care provider. Return to the emergency department immediately if your symptoms worsen or if you develop any numbness, tingling, dizziness, shortness of breath, difficulty breathing, chest pain, blurry vision, loss of vision, nausea, vomiting, abdominal pain, fever, chills, back pain, or any other complaints. Please see the information below about our Patient Portal. If you are not yet enrolled in the [facility] Patient Portal, you will receive an enrollment email invitation following your visit to any [facility] setting. You may also self-enroll in the Patient Portal by visiting our website: [email or web address] The following information is required to access the Patient Portal: - Your [facility] Medical Record Number - Your personal home email address (must match what is in your electronic medical record, Registration staff can assist with this) - Name - Date of Capabilities of the Patient Portal: - Message some providers - View upcoming appointments - Access your health summary, medical history, and visit history - View current conditions and allergies - View procedure and lab results - View your medications, including guidelines, side effects, and precautions - Complete pre-appointment questionnaires requested by your provider - Ready summary reports of your office visits and procedures To access the Patient Portal Mobile [employer], follow these directions: - Search [facility] in the [employer] Store or [employer] Store - Download the [employer] - Search for [facility] - Enter your login/password Prescriptions: No Action lamotrigine [Lamictal] 200 mg tablet 1 tab PO BID clonidine HCl 0.2 mg tablet 1 tab PO BEDTIME trazodone 50 mg Tablet 50 mg PO BEDTIME cholecalciferol (vitamin D3) [Vitamin D3] 50 mcg (2,000 unit) Tablet 50 mcg PO DAILY clonidine HCl 0.1 mg Tablet 0.1 mg PO DAILY PRN (Reason: Anxiety) levonorgestrel-ethinyl estrad [Vienva] 0.1-20 mg-mcg Tablet 1 tab PO DAILY trazodone 50 mg tablet 50 mg PO BEDTIME acetylcysteine 600 mg Capsule 600 mg PO BID fluoxetine 20 mg capsule 10 mg PO DAILY olanzapine 20 mg tablet 10 mg PO BID mineral oil-hydrophil petrolat Ointment 1 appl TOPICAL Q12H PRN (Reason: Scabs/Healing Wounds) bismuth subsalicylate 262 mg/15 mL Suspension 262 mg PO Q6H PRN (Reason: Indigestion) ibuprofen 400 mg Tablet 400 mg PO Q8H PRN (Reason: Pain/Fever) Cetaphil Cream 1 appl TOPICAL NEEDED PRN (Reason: Dry Skin) dextromethorphan-guaifenesin 10-100 mg/5 mL Syrup 5 ml PO Q6H PRN (Reason: Cough) Interventions: [place]-Suicide Risk Severity Scale Last Done: 03/23/25 10:50 Print Language: Cook Islander
[2025-03-23 10:45] VITALS: BP 112/64; BP 130/80; PULSE 117; PULSE 89; RESP 16; TEMP 36.9; O2SAT 97; O2SAT 98; BMI 24.4
--- NOTE | 2025-03-23 10:56 | PC.NURSE ---
Patient presented to ER via ambulance from her residential secondary to making suicidal statements in the context of an argument with her residential staff. Patient reports the staff have been disrespecting her and making fun of her, telling her that she talks too much . Patient reports becoming upset and throwing items. Patient reports feeling unsafe at her residential and states the staff cause her so much stress that she wants to commit suicide . She reported suicidal ideation with no plan; HI towards her residential staff. Patient disregulated and manic on arrival. Belongings removed and patient placed into psych safety clothing. Patient immediately on the phone to discuss how she is unhalppy at her current facility. PMH: intellectual disability and MDD.
[2025-03-23 11:03] LABS: MANUAL DIFF FLAG NO
[2025-03-23 11:09] LABS: Hematocrit 37.7 % (37.0-47.0); Hemoglobin 13.1 g/dl (12.0-16.0); Imm Gran Abs Auto 0.02 X10*3/uL (0.00-0.03); Imm Gran Pct Auto 0.4 % (0.0-0.4); Lymphocytes Absolute Auto 1.9 X10*3/uL (1.2-4.9); Mean Corpuscular HGB Conc 34.7 g/dl (31.0-35.0); Mean Corpuscular Hemoglobin 30.0 pg (27.0-33.0); Mean Corpuscular Volume 86.3 fL (80.0-98.0); NRBC Abs Auto 0.000 X10*3/uL (0.0-0.012); NRBC Pct Auto 0.0 /100WBC (0.0-0.2); Platelet Count 228 X10*3/uL (160-400); Red Blood Count 4.37 X10*6/uL (4.20-5.50); White Blood Count 5.3 X10*3/uL (4.8-10.8)
[2025-03-23 11:22] LABS: Acetaminophen LAB < 3 mcg/mL (<30); Alanine Aminotransferase 32 U/L (0-31); Albumin Level 4.6 g/dL (3.5-5.0); Alkaline Phosphatase 60 U/L (39-117); Anion Gap 11 (12-20); Aspartate Amino Transferase 19 U/L (5-31); Blood Urea Nitrogen 8 mg/dL (9-16); Calcium 9.4 mg/dL (8.4-10.2); Carbon Dioxide 26 mmol/L (22-29); Chloride 110 mmol/L (96-108); Creatinine Clr Calc Pharmacy 102.0; Estimated Glomerular Filt Rate > 60; Potassium 3.8 mmol/L (3.3-5.1); Salicylate < 5.0 mg/dL (15-30); Sodium 143 mmol/L (135-145); Total Protein 7.6 g/dL (6.5-8.0)
[2025-03-23 11:28] LABS: COVID-19 Test Negative (Negative); IDNOW Serial# 55D5AD1C
--- OUTSIDE RECORDS SUMMARY | 2025-03-23 12:04 | XMS_ITS | Encounter Summary ---
Author Organization [facility] Address [address] [place] [address] [place] [id number] Phone Care Team Providers Care Rear Load Truck Driver Name Role Phone Cindy Lawrence MD Primary Care Provider [phone] Destiny Rojas MD Primary Care Provider [phone] Leah Meier MAP AND CHART MOUNTER Unavailable [phone] Cindy Lawrence MD Unavailable [phone] Reason for Visit * Reason Onset Date Comments Medication Question 07/11/2023 Encounter Details Date Type Department Care Team (Late st Contact Info) Description 07/11/2023 Telephone [facility] Internal Medicine [address] [place] [address] Leah Meier, MAP AND CHART MOUNTER [address] [place] [address] [email or web address] Medication Question Social History Tobacco Use Types Packs/Day Years Used Date Smoking Tobacco: Former Cigarettes 0.3 0.5 0 04/05/2014 - 10/05/2014 Smokeless Tobacco: Never Comments:Smoked for 1 year, started at 19 y/o Alcohol Use Standard Drinks/Week Comments No 0 (1 standard drink = 0.6 oz pur e alcohol) Child or Family Care Answer Date Record ed Do you have problems with on e of the following making it difficult for you to work, study, or receive health care? No 2023 Education Answer Date Recorded Are you interested in help w ith more adult education (for example, completing high school, GED, job training, learning the Montenegrin language, technical skills, or developing parenting skills)? I choose not to answer 2023 Are you concerned about learning? Not on file 2023 No 2023 Yes 2023 Food Answer Date Recorded Within the past 6 months we worried whether our food would run out before we got money to buy more. Never True 2023 Within the past 6 months the food we bought just didn't last and we didn't have enough money to get more. Never True Residential Stability Answer Date Recor ded What is your housing situation today? I have taylor sing 2023 How many times have you move d in the past 12 months? Zero (I did not move) 2023 Paying for Meds Answer Date Recorded Do you have trouble paying for medicines? No 2023 Paying Utility Bills Answer Date Record ed Do you have trouble paying your heating or elect ricity bill? No 2023 Transportation Answer Date Recorded Has the lack of transportati on kept you from medical appointments or from getting medications? No 2023 Unemployment Answer Date Recorded Are you currently unemployed or working on a part-time or temporary basis, and looking for work? No 2023 Digital Access Answer Date Recorded Yes 2023 Yes 2023 Do you have reliable internet access at home? Ye s 2023 Do you have a device (e.g., phone, tablet, computer) with a working camera? No 2023 SNAP & WIC Answer Date Recorded Do you receive benefits from SNAP (the Supplemental Nutrition Assistance Program) or the Food Stamp Program? Yes 2023 SNAP is a free program, interested in learning m ore? Not on file 2023 Can we help you enroll in SNAP? Not on file 2023 Benefits received from WIC? Not on file 02/04 WIC is a free program, interested in learning mo re? Not on file 2023 Can we help you enroll in WIC? Not on file 0 2023 Comments No Sex and Gender Information Value Date Recorded Sex Assigned at Female 09/27/2024 1:29 PM EST Legal Sex Female 8:51 PM EDT Gender Identity Female 09/27/2024 1:29 PM EST Sexual Orientation Straight 01/15/2025 11 :14 AM EDT documented as of this encounter Progress Notes * Zoraida Quiroz MA - 07/11/2023 1:50 PM EST Call to Ms Burroughs, aware. She will contact psychiatrist to ask they prescribe. MS Burroughs states it was prescribed for skin picking which has helped and allowed her skin to heal. * Leah Meier NP - 07/11/2023 12:53 PM EST If this was prescribed by her psychiatrist for psychiatric reasons and her new psychiatrist isn't agreeable to this I don't see a need for her to take it, from my perspective. * Zoraida Quiroz MA - 07/11/2023 10:33 AM EST Call to Ms Burroughs, states pt was prescribed NAC 600mg BID by psych unit when admitted in April. Currently seeing psychiatry but won't take over prescribing because not a psych med. Pt is running low and out of refills, inquiring if Leah can prescribe. Med pended * Yolette Rogers - 07/11/2023 9:12 AM EST Caregiver Ms. Burroughs would like to speak to someone concerning patients medications. She can be reached at [phone] documented in this encounter Plan of Treatment Not on file documented as of this encounter Visit Diagnoses Not on filedocumented in this encounter Additional Health Concerns Assessment Noted Time PHQ-9 Depression Total Score: 21 023 1:32 PM EDT PHQ-2 Depression Total Score: 1 02/25/20 23 1:05 PM EDT documented as of this encounter Care Teams Rear Load Truck Driver Relationship Specialty Start Date End Date Cindy Lawrence MD [address] [place] [id number] PCP - General 01/27/23 11/02/23 Destiny Rojas MD [address] [place] [id number] PCP - General Internal Medicine 11/03/23 Leah Meier NP [address] [place] [phone] Family Medicine 01/27/23 11/02/23 Cindy Lawrence MD [address] [place] [id number] 11/03/23 documented as of this encounter Additional Source Comments The information contained in this document represents components of the legal health record. It is not the complete legal health record.[facility]
--- NOTE | 2025-03-23 14:33 | PC.NURSE ---
[facility] and will [facility] her up around 5pm.
[2025-03-23 20:40] VITALS: BP 138/76; PULSE 78; RESP 16; TEMP 36.4; O2SAT 98
[2025-03-23 20:41] VITALS: BP 138/76; PULSE 78; RESP 16; TEMP 36.4; O2SAT 98
== END 2025-03-23 20:41 | disposition other institution (70) ==
PROVIDERS: Physician Assistant Medical; Emergency Provider Emergency Medicine
DX: F41.9 Anxiety disorder, unspecified (principal); F33.9 Major depressive disorder, recurrent, unspecified; R45.851 Suicidal ideations; F81.9 Developmental disorder of scholastic skills, unspecified; Z79.899 Other long term (current) drug therapy; Z51.81 Encounter for therapeutic drug level monitoring; Z03.818 Encounter for observation for suspected exposure to other biological agents ruled out
CPT/HCPCS: 80053; 80143; 80179; 80307; 85025; 87635; 99284; 99285; S9485

== ENCOUNTER 2025-04-05 17:06 | Emergency (ER) | payer MEDICARE, MEDICAID, SELFPAY ==
[2025-04-05 17:24] VITALS: BP 138/72; PULSE 102; O2SAT 99; BMI 25.1
[2025-04-05 17:28] VITALS: BP 135/72; PULSE 76; RESP 16; TEMP 36.3; O2SAT 99
--- NOTE | 2025-04-05 17:33 | PC.NURSE ---
Addendum entered by Chelsea Campbell RN 04/05/25 17:37: Patient is a 30 year old well known to the facility with a history of MDD and intellectual delay presenting to the emergency department today with aggressive behavior. Was being accountable by staff, and became aggressive, throwing objects at the staff. Patient states was kicked out Patient sl manic, impulsive and attention seeking immediately requesting to utilize the phone. She is requesting to be placed in a different custodial which is common during her behavioral health stay. Original Note: Medical History Suicidal ideation Major depression Mood disorder
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
[2025-04-05 18:27] LABS: MANUAL DIFF FLAG NO
[2025-04-05 18:28] LABS: Hematocrit 37.8 % (37.0-47.0); Hemoglobin 13.0 g/dl (12.0-16.0); Imm Gran Abs Auto 0.02 X10*3/uL (0.00-0.03); Imm Gran Pct Auto 0.3 % (0.0-0.4); Lymphocytes Absolute Auto 2.2 X10*3/uL (1.2-4.9); Mean Corpuscular HGB Conc 34.4 g/dl (31.0-35.0); Mean Corpuscular Hemoglobin 29.8 pg (27.0-33.0); Mean Corpuscular Volume 86.7 fL (80.0-98.0); NRBC Abs Auto 0.000 X10*3/uL (0.0-0.012); NRBC Pct Auto 0.0 /100WBC (0.0-0.2); Platelet Count 231 X10*3/uL (160-400); Red Blood Count 4.36 X10*6/uL (4.20-5.50); White Blood Count 6.9 X10*3/uL (4.8-10.8)
[2025-04-05 18:30] LABS: Appearance Urine Turbid; Glucose Urine UA Negative (Negative); PH 5.5 (5.0-9.0); Specific Gravity - Urine 1.025 (1.005-1.025); UMIC TRIGGER UA YES
[2025-04-05 18:42] LABS: Cannabinoid Screen Urine Not Detected (Not Detect)
[2025-04-05 18:47] LABS: UPreg QC Valid YES
[2025-04-05 19:30] LABS: Alanine Aminotransferase 40 U/L (0-31); Albumin Level 4.6 g/dL (3.5-5.0); Alkaline Phosphatase 60 U/L (39-117); Anion Gap 14 (12-20); Aspartate Amino Transferase 20 U/L (5-31); Blood Urea Nitrogen 13 mg/dL (9-16); Calcium 9.5 mg/dL (8.4-10.2); Carbon Dioxide 24 mmol/L (22-29); Chloride 106 mmol/L (96-108); Creatinine Clr Calc Pharmacy 87.1; Estimated Glomerular Filt Rate > 60; Potassium 3.7 mmol/L (3.3-5.1); Sodium 140 mmol/L (135-145); Total Protein 7.7 g/dL (6.5-8.0)
[2025-04-05 19:38] LABS: Acetaminophen LAB < 3 mcg/mL (<30); Salicylate < 5.0 mg/dL (15-30)
--- NOTE | 2025-04-05 19:51 | PC.NURSE ---
Assumed care of patient at 1845, patient is calm and cooperative at this time, pt immediately asking this RN to use the phone, per previous RN, pts phone use had to be limited due to increasing inappropriate use of the phone. Pt states to this RN I acted very bad this time, I can't go back to my prison, they kicked me out . Pt is currently pending CARE team assessment
--- NOTE | 2025-04-06 00:57 | PC.NURSE ---
Took over care from LEFTY Diamond at 23:00, pt sleeping no sign of distress.
[2025-04-06 03:59] VITALS: BP 115/68; PULSE 77; TEMP 36.6; O2SAT 98
--- NOTE | 2025-04-06 03:59 | PC.NURSE ---
pt given warm blanket.
--- NOTE | 2025-04-06 09:00 | PC.NURSE ---
Patient requested to use the phone this AM. Patient was told she can use the phone but needs to have appropriate conversations otherwise she wouldnt be able to use the phone. Patient using the phone appropriately at this time
--- NOTE | 2025-04-06 09:51 | MHC.CARE ---
Pt will be an [facility] bedsearch
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
--- NOTE | 2025-04-06 13:36 | MHC.CARE ---
[facility] has declined pt due to behaviors displayed at their unit in the past.
--- NOTE | 2025-04-06 13:58 | PC.NURSE ---
Patient became upset after hearing the news of not getting placement. Notified provider, received order for ativan. Administered per NOV, effectiveness pending.
--- NOTE | 2025-04-06 14:07 | MHC.CARE ---
CARE Team speaks with Natty, [facility] director.? She is advised that pt will be discharged and she will require a ride.? Natty reports that she will begin to make arrangements for transport.
[2025-04-06 18:09] VITALS: BP 115/68; PULSE 77; RESP 16; TEMP 36.6; O2SAT 98
== END 2025-04-06 18:13 | disposition home or self-care (01) ==
PROVIDERS: Nurse Practitioner Family; Emergency Provider Emergency Medicine
DX: F79 Unspecified intellectual disabilities (principal); F33.9 Major depressive disorder, recurrent, unspecified; Z79.899 Other long term (current) drug therapy
CPT/HCPCS: 36415; 80053; 80143; 80179; 80307; 81001; 81025; 85025; 99284; S9485

== ENCOUNTER 2025-07-01 22:29 | Emergency (ER) | payer MEDICARE, MEDICAID, SELFPAY ==
[2025-07-01 22:33] VITALS: BP 132/80; BP 141/91; PULSE 120; PULSE 126; RESP 18; TEMP 36.4; O2SAT 98; BMI 23.6
--- NOTE | 2025-07-01 23:15 | MHC.EDTECH ---
Pt refusing blood draw at this time. States that she needs some time to calm down first. RN aware
--- OUTSIDE RECORDS SUMMARY | 2025-07-01 23:20 | XMS_ITS | Encounter Summary ---
Author Organization [facility] Address [address] [place] [id number] Phone Care Team Providers Care Furniture Upholsterer Name Role Phone Destiny Rojas MD Primary Care Provider [phone] Cindy Lawrence MD Unavailable [phone] Reason for Visit * Reason Onset Date Comments Triage 03/27/2025 Green + STD/symp tomatic Encounter Details Date Type Department Care Team (Late st Contact Info) Description 03/27/2025 Telephone [facility] [address] [place] [address] [place] [address] Destiny Rojas MD [address] [place] [address] [email or web address] Triage (Green + STD/symptomatic ) Social History Tobacco Use Types Packs/Day Years [...] work, study, or receive health care? No 09/27/2024 Education Answer Date Recorded Are you interested in help w ith more adult education (for example, completing high school, GED, job training, learning the Haitian language, technical skills, or developing parenting skills)? No 09/27/2024 Are you concerned about learning? Not on file 09/27/2024 No 09/27/2024 Yes 09/27/2024 Food Answer Date Recorded Within the past 6 months we worried whether our food would run out before we got money to buy more. Never True 09/27/2024 Within the past 6 months the food we bought just didn't last and we didn't have enough money to get more. Never True Residential Stability Answer Date Recor ded What is your housing situation today? I have taylor sing 09/27/2024 How many times have you move d in the past 12 months? Zero (I did not move) 09/27/2024 Paying for Meds Answer Date Recorded Do you have trouble paying for medicines? No 09/27/2024 Paying Utility Bills Answer Date Record ed Do you have trouble paying your heating or elect ricity bill? No 09/27/2024 Transportation Answer Date Recorded Has the lack of transportati on kept you from medical appointments or from getting medications? No 09/27/2024 Unemployment Answer Date Recorded Are you currently unemployed or working on a part-time or temporary basis, and looking for work? No 09/27/2024 Digital Access Answer Date Recorded Yes 09/27/2024 Yes 09/27/2024 Do you have reliable internet access at home? Ye s 09/27/2024 Do you have a device (e.g., phone, tablet, computer) with a working camera? No 09/27/2024 SNAP & WIC Answer Date Recorded Do [...] in WIC? Not on file 0 2023 Intimate Partner Violence Answer Date R ecorded Denied Basic Needs Not on file 09/27/2024 In the past 12 months have y ou been in a relationship with a person who hurts, threatens, or tries to control you? No 09/27/2024 Worried food would run out Not on file 09/27 In the past 12 months have y ou been in a relationship with a person who hurts, threatens, or tries to control you? No 09/27/2024 Comments No Sex and Gender Information Value Date Recorded Sex Assigned at Female 09/27/2024 1:29 PM EST Legal Sex Female 8:51 PM EDT Gender Identity Female 09/27/2024 1:29 PM EST Sexual Orientation Straight 01/15/2025 11 :14 AM EDT documented as of this encounter Progress Notes * Mariposa Reyes - 03/27/2025 9:20 AM EDT [facility] Smart Phrases: Red Yellow Green Guidelines Select Red, Yellow, Green Triage Intake *Route to appropriate staff member/pool according to practice guidelines* Green Call Intake Call Back Number: (if not patient, name/relationship RN at pen[facility]iary Green Symptom(s): Vaginal pain When did these symptoms start? N/a Have you ever experienced these symptoms before? NO Reason patient was not scheduled? SV 03/29 Additional Information: RN from pt's penitentiary called in stating pt had unprotected sex and was experiencing vaginal pain. Caller stated possible STI. Schedule appointment or offer Care Alternative Options provided in R[employer] Tool Follow practice guidelines for routing directions Reason for Call = TRIAGE Comment = GREEN + symptom or NURSING ADVICE REQUEST if requesting to speak with nursing documented in this encounter Plan of Treatment Not on file documented as of this encounter Visit Diagnoses Not on filedocumented in this encounter Additional Health Concerns Assessment Noted Time PHQ-9 Depression Total Score: 9 09/27/19 1:39 PM EST PHQ-2 Depression Total Score: 4 09/27/19 1:39 PM EST documented as of this encounter Care Teams Furniture Upholsterer Relationship Specialty Start Date End Date Destiny Rojas MD [address] [place] [address], [address] [place] [address] [email or web address] PCP - General Internal Medicine 11/03/23 Cindy Lawrence MD [address] [place] [phone] [email or web address] 11/03/23 documented as of this encounter Additional Source Comments The information contained in this document represents components of the legal health record. It is not the complete legal health record.[facility]
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
--- OUTSIDE RECORDS SUMMARY | 2025-07-01 23:20 | XMS_ITS | Encounter Summary ---
Author Organization [facility] Address [address] [facility] [address] [place] [address] Phone Care Team Providers Care Medical Lab Technologist Name Role Phone Destiny Rojas MD Primary Care Provider [phone] Cindy Lawrence MD Unavailable [phone] Reason for Visit * Reason Onset Date Comments [employer] 06/10/2025 Encounter Details Date Type Department Care Team (Late st Contact Info) Description 06/10/2025 Telephone [facility] [address] [place] [address] [place] [address] Destiny Rojas MD [address] [place] [address], [address] [place] [address] [email or web address] [employer] Social History Tobacco Use Types Packs/Day Years [...] high school, GED, job training, learning the Amharic language, technical skills, or developing parenting skills)? [...] as of this encounter Progress Notes * Teresa Bowser - 06/10/2025 11:44 AM EDT Ethan-nurse with [employer] lm on the triage line states that she is following up on a referral request for pt. Requesting call back. (Did not provide info) CSS Agent (Please do not reply to this user, as this inbox is not monitored. Thank you.) Thank you. documented in this encounter Plan of Treatment Not on file documented as of this encounter Visit Diagnoses Not on filedocumented in this encounter Additional Health Concerns Assessment Noted Time PHQ-9 Depression Total Score: 9 09/27/19 1:39 PM EST PHQ-2 Depression Total Score: 4 09/27/19 1:39 PM EST documented as of this encounter Care Teams Medical Lab Technologist Relationship Specialty Start Date End Date Destiny Rojas MD [address] [place] [address], [address] [place] [address] PCP - General Internal Medicine 11/03/23 Cindy Lawrence MD [address] [place] [address] 11/03/23 documented as of this encounter Additional Source Comments The information contained in this document represents components of the legal health record. It is not the complete legal health record.[facility]
[2025-07-02 00:42] LABS: MANUAL DIFF FLAG NO
[2025-07-02 00:43] LABS: Hematocrit 35.7 % (37.0-47.0); Hemoglobin 12.1 g/dl (12.0-16.0); Imm Gran Abs Auto 0.02 X10*3/uL (0.00-0.03); Imm Gran Pct Auto 0.2 % (0.0-0.4); Lymphocytes Absolute Auto 2.6 X10*3/uL (1.2-4.9); Mean Corpuscular HGB Conc 33.9 g/dl (31.0-35.0); Mean Corpuscular Hemoglobin 29.4 pg (27.0-33.0); Mean Corpuscular Volume 86.9 fL (80.0-98.0); NRBC Abs Auto 0.000 X10*3/uL (0.0-0.012); NRBC Pct Auto 0.0 /100WBC (0.0-0.2); Platelet Count 215 X10*3/uL (160-400); Red Blood Count 4.11 X10*6/uL (4.20-5.50); White Blood Count 8.3 X10*3/uL (4.8-10.8)
[2025-07-02 00:49] LABS: Delay - Chemistry DELAY
[2025-07-02 01:03] LABS: Alanine Aminotransferase 55 U/L (0-31); Albumin Level 3.9 g/dL (3.5-5.0); Alkaline Phosphatase 50 U/L (39-117); Anion Gap 11 (12-20); Aspartate Amino Transferase 34 U/L (5-31); Blood Urea Nitrogen 5 mg/dL (9-16); Calcium 9.0 mg/dL (8.4-10.2); Carbon Dioxide 25 mmol/L (22-29); Chloride 110 mmol/L (96-108); Creatinine Clr Calc Pharmacy 122.1; Estimated Glomerular Filt Rate > 60; Potassium 3.2 mmol/L (3.3-5.1); Sodium 143 mmol/L (135-145); Total Protein 6.4 g/dL (6.5-8.0)
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
[2025-07-02 02:21] LABS: Lithium 0.44 mmol/L (0.60-1.20)
[2025-07-02 02:32] LABS: Salicylate < 5.0 mg/dL (15-30)
[2025-07-02 05:58] VITALS: RESP 18
--- NOTE | 2025-07-02 07:04 | PC.NURSE ---
Assumed care of pt. Pt is laying down with their eyes closed, no s/s of distress. RR even and unlabored.
[2025-07-02 08:05] VITALS: BP 117/74; PULSE 106; RESP 18; TEMP 37.2; O2SAT 97
--- NOTE | 2025-07-02 09:00 | MHC.CARE ---
Pt does not meet the criteria for IPLOC and will D/C back to .
--- NOTE | 2025-07-02 09:04 | PC.NURSE ---
pt speaking with the care team, pt sts she does not want to go back to her [facility] but other facilities are not available at this time per care team so patient is planned to go back.
[2025-07-02 13:32] VITALS: BP 117/74; PULSE 106; RESP 18; TEMP 37.2; O2SAT 97
== END 2025-07-02 13:40 | disposition home or self-care (01) ==
PROVIDERS: Emergency Provider Emergency Medicine
DX: F91.9 Conduct disorder, unspecified (principal); Z79.899 Other long term (current) drug therapy
CPT/HCPCS: 36415; 80053; 80178; 80179; 80307; 85025; 99284; S9485